=== PATIENT | female | born 1945 | race Caucasian/White ===

== ENCOUNTER 2018-12-18 16:49 | Inpatient (IN) | payer MEDICARE, OTHER, SELFPAY ==
[2018-12-18 16:54] VITALS: BP 147/90; PULSE 87; RESP 21; TEMP 36.8; O2SAT 99; BMI 38.2
--- NOTE | 2018-12-18 17:24 | EKG12_ITS ---
Test Reason : SOB Blood Pressure : / mmHG Vent. Rate : 098 BPM Atrial Rate : 104 BPM P-R Int : 000 ms QRS Dur : 084 ms QT Int : 342 ms P-R-T Axes : 000 010 149 degrees QTc Int : 436 ms Atrial flutter Low voltage QRS Nonspecific ST and T wave abnormality Abnormal ECG Confirmed by TOM CRUZ ([id number]), video editor NIMISHA JOHNSON ([id number]) on 12/23/2018 2:05:00 PM Referred By: Ruben Rogers Confirmed By:ALBERTO CRUZ
[2018-12-18 17:44] VITALS: O2SAT 95
--- NOTE | 2018-12-18 17:50 | RAD_ITS ---
STUDY: X-RAY CHEST REASON FOR EXAM: Female, 73 years old. Shortness of breath. Chest pain TECHNIQUE: PA and lateral views of the chest. COMPARISON: None. FINDINGS: There is hyperinflation of the lungs consistent with chronic obstructive lung disease (COPD). There is blunting of the costophrenic angles. Sternal cerclage wires are present from a prior sternotomy. There is valve replacement. There is cardiac enlargement. Normal mediastinum and cornelio. Normal visualized pulmonary arteries. Normal visualized aortic arch and descending thoracic aorta. There are diffuse degenerative changes of the visualized thoracic spine. Normal visualized ribs, clavicles, and shoulders. There is no demonstrated abnormality of the visualized soft tissue structures of the upper abdomen. RAD/Chest PA and Lateral IMPRESSION: Degenerative changes, as described above. No demonstrated acute cardiopulmonary process. Electronically Signed: Tank Medrano MD at 18:14 EDT , Service support ,
[2018-12-18 17:59] LABS: International Normalized Ratio 1.9; Prothrombin Time (Protime)PT. 21.7 SECONDS (11.7-14.9)
[2018-12-18 18:00] LABS: Partial Thromboplast Time 34.9 Seconds (24.1-36.2)
[2018-12-18 18:10] LABS: ALB/GLOB Ratio 0.8 RATIO (0.9-2.4); AST(SGOT) 30 U/L (15-37); Alanine Aminotransfer ALT/SGPT 24 U/L (13-56); Alkaline Phosphatase 102 U/L (45-117); Anion Gap 8 (5-15); BUN 16 mg/dL (7-18); BUN/Creat Ratio 12.6 RATIO (10-20); Calcium,Total 8.7 mg/dL (8.5-10.1); Chloride 108 mmol/L (98-107); Creatinine, Serum 1.27 mg/dL (0.55-1.02); EST Glomerular Filtration Rate 44 mL/min (>60); Est Glom Filt Rate - Afr Amer 53 mL/min (>60); Estimated Creatinine Clearance 36.56 ml/min; Globulin 3.6 g/dL (2.2-4.2); Glucose 171 mg/dL (74-106); Potassium 3.7 mmol/L (3.5-5.1); Protein, Total 6.6 g/dL (6.4-8.2); Sodium Level 140 mmol/L (136-145)
[2018-12-18 18:17] LABS: Absolute Lymphocyte Count 1.44 X10^3/ul (0.83-4.51); Absolute Neutrophil Count 8.9 X10^3/uL (2.0-7.7); Basophil# 0.05 X10^3/uL; Basophil% 0.4 % (0-1); Eosinophil# 0.09 X10^3/uL; Eosinophils% 0.8 % (0-5); Hematocrit 38.3 % (37-47); Hemoglobin 11.4 g/dl (12.0-15.0); Lymphocyte # 1.44 X10^3/ul (4.0); Lymphocyte % 12.8 % (19-41); Mean Corp Hgb Conc 29.8 g/gl (32-36); Mean Corpuscular Volume 87.2 fL (81-99); Mean Platelet Vol. 11.3 fl (6.2-12.0); Monocyte# 0.73 X10^3/uL; Monocyte% 6.5 % (0-10); Neutrophil # 8.91 X10^3/uL (2.7-7.7); Neutrophil % 79.3 % (47-70); Platelet Count 300 K/mm3 (150-450); RBC Distribution Width CV 19.9 % (11.6-14.6); RBC Distribution Width SD 63.2 fl (35.1-43.9); Red Blood Count 4.39 M/mm3 (4.2-5.4); White Blood Count 11.2 K/mm3 (4.4-11.0)
[2018-12-18 18:20] LABS: POSITIVE COUNT NO; POSITIVE DIFFERENTIAL NO; POSITIVE MORPHOLOGY NO
[2018-12-18 18:45] LABS: BNP,B-Type NATRIURETIC PEPTIDE 87.1 pg/mL (0-100)
[2018-12-18 19:45] VITALS: BP 132/71; PULSE 88; RESP 18; O2SAT 95; O2SAT 97
[2018-12-18 19:49] LABS: Bacteria 0 SEEN /hpf (None Seen); Mucous, Urine 0 SEEN /hpf (<or=2+); Squamous Epithelial Cells - UA 0 SEEN /hpf (5-10); White Blood Cells 0 SEEN /hpf (0-5)
[2018-12-18 19:53] LABS: Color, Urine Yellow (Yellow); Glucose, Dipstick Normal (Normal); Ketone-Dipstick Negative (Negative); Leukocyte Esterase-Dipstick Negative /ul (Negative); Nitrite-Dipstick Negative (Negative); Occult Blood-Urine Negative /ul (Negative); Protein-Dipstick Negative (Negative); Specific Gravity, Urine 1.015 (1.002-1.030); Urine Bilirubin Dipstick Negative (Negative); Urine Clarity Clear (Clear); Urine Urobilinogen Normal (Normal)
[2018-12-18 20:01] LABS: Red Blood Cells-Urine 0-5 SEEN /hpf (0-5)
--- NOTE | 2018-12-18 20:10 | CT_ITS ---
STUDY: CTA CHEST REASON FOR EXAM: Female, 73 years old. Dyspnea. Epigastric pain. Recent travel RADIATION DOSAGE (If Supplied By Facility): CTDIvol = ( 13.78 ) mGy, DLP = ( 563.51 ) mGycm TECHNIQUE: The examination was performed with the intravenous administration of 100ML IV Isovue 370. Post-processing of the angiographic images was performed, with multiplanar reformation and 3D reconstruction. Individualized dose optimization techniques were used for this CT. COMPARISON: Chest x-ray. FINDINGS: Normal enhancement of the main pulmonary artery and right and left pulmonary arteries. Normal enhancement of the bilateral peripheral pulmonary arteries. There is no demonstrated pulmonary embolism. There is atherosclerotic calcification of the aortic arch with tortuosity. There is no demonstrated aortic dissection. Sternal cerclage wires are present from a prior sternotomy. There is mitral valve prosthesis. There are calcifications of the coronary arteries. There are enlarged anterior mediastinal and paratracheal lymph nodes measuring 1.5 cm. Normal hilar regions. Normal visualized trachea and bronchi. The lungs are well expanded. There are moderately increased reticulonodular interstitial upper lung parenchymal markings. There is left lower lung airspace opacity. Nodular component There is 2.0 cm right lower lung nodule, series 2 image 76/265. Normal pleura. Normal chest wall structures. There are degenerative changes of thoracic spine. There are multiple gallstones. There is small hiatal hernia. CT/CTA Chest W/WO Contrast IMPRESSION: CTA chest examination, without a demonstrated pulmonary embolism or arterial dissection. Interstitial edema or infiltrates. Left lower lung airspace opacity. Right lower lung nodule. Consider CT or PET scan for further evaluation. Electronically Signed: Tank Medrano MD at 22:31 EDT , Service support ,
[2018-12-18] MEDS: DiphenhydrAMINE 50 MG/ML Syringe 12.5 MG IV (20:37)
[2018-12-18] MEDS: MethylPREDNISolone 125 MG/2 ML Vial 60 MG IV (20:37)
[2018-12-18] MEDS: Furosemide 40 MG/4 ML Vial IV (20:37)
[2018-12-18 22:44] VITALS: BP 145/91; PULSE 80; RESP 17; O2SAT 97
[2018-12-19] VITALS (15 sets, daily range): BP systolic 97–163; BP diastolic 45–111; PULSE 66–105; RESP 17–21; TEMP 36.4–36.7; O2SAT 90–98; BMI 36.5
--- NOTE | 2018-12-19 00:17 | ED.VISSUMM ---
- ER Visit Summary Date of Service: 12/19/18 Chief Complaint: Shortness of breath History of Present Illness: The patient is a 73 F who is originally from [place]. She has a history of diabetes hypertension high cholesterol COPD and atrial fibrillation. She is a coronary artery stents as well as a [employer] prosthetic aortic valve replacement. She wears 2 L of home oxygen but as needed and at night. She is also on Coumadin. Her last Sunday. Family from this area drove down visitation was Sunday and when they saw her they knew that she was not to be able to continue to live by herself and discussed her moving to [place]. Her trailer sold within 1 day and she buried her yesterday and drove to [place] today. She notes that her legs are more swollen than normal. She initially tells me that she has had worsening shortness of breath and dyspnea on exertion but then later tells me that this is not any different from her normal self. She tells me the last week her INR was 6 and they adjusted her meds. Family gets her home here and realized that she is not to be able to climb the stairs to get to the room at the house that she is staying in. She has 1 tank of oxygen that she brought with her. Otherwise she has no home O2. She has no local doctor. Physical Examination: Afebrile vital signs are stable Gen: Well-nourished well-developed Head: Normocephalic atraumatic Eyes: Perrl EOMI ENT: TMs clear no rhinorrhea moist mucous membranes Neck: Supple no lymphadenopathy no JVD nontender CVS: Irregularly irregular rhythm rate controlled no murmurs normal S1-S2 Respiratory: No distress clear to auscultation bilaterally chest nontender Abdomen: Soft nontender nondistended normal bowel sounds no masses Back: Nontender Extremity: Nontender 1+ lower extremity edema Skin: Normal color no rash Neuro: alert orientated ?3 CN II-XII intact normal strength sensation reflexes gait cerebellar Psych: Normal affect normal mood Test Results: Chest x-ray no acute disease. CT [place] of the chest after pretreatment was negative for PE or dissection. EKG showed atrial fibrillation rate of 98 CBC and chemistries with a creatinine 1.27. INR subtherapeutic at 1.9. Liver enzymes negative. Urinalysis negative. Beta nature peptide is 7.1. Troponin 0 0.03. Emergency Department Course and Treatment: Attempted to ablate the patient to the bathroom and she was 83% on room air. Unclear what she is normally at her baseline. She wears oxygen at home when she needs to but does not typically ambulate very far. Patient needs oxygen she has one tank and that is it. She most likely cannot stay at the house they were planning on having her stay at and will more than likely need some degree of placement. Patient received some Lasix here in the department. Impression: 1. Atrial fibrillation 2. Lymphedema 3. Depression 4. Subtherapeutic INR 5. Hypoxemia This note was generated with [employer] dictation software. It may contain incorrect words, spelling, and punctuation that were not noted in review of the chart prior to signing ED Disposition - Plan for ED Patient: Referrals: Care Physician,No Primary [Primary Care Provider] -
--- NOTE | 2018-12-19 01:54 | PCM.HP.STD ---
Problem List (1) Adult failure to thrive Status: Acute (2) Congestive heart disease Status: Suspected (3) COPD (chronic obstructive pulmonary disease) Status: Chronic (4) Acute on chronic respiratory failure with hypoxemia Status: Chronic History of Present Illness Date of Admission: 12/18/18 Chief Complaint: shortness of breath Patient was seen before midnight of 12/19/2018 at about 2345 on 12/18/2018. The patient is a 73 year old F with a significant history of atrial fibrillation; former smoker; CAD status post coronary stents; open heart surgery with mechanical valve replacements; atrial fibrillation; COPD; hypertension; and diabetes who presented to the emergency department primarily because she is unable to take herself; and her family realize that it will be overwhelming to accommodate her after bringing her from [place] with not much thought put in her moving from out of state. [facility] However her a week ago and was buried on 12/17/2018. Her family who live in the [place] neighborhood brought her to the [facility] without adequate preparation of her healthcare needs and realized that they will be unable to take care of her. She reported that she cannot walk far and she has low energy. Further she is weak. Her family report that she was so weak to hold onto support. After her she sold her trailer and everything in it with the intent to come and live with her family. While in trail at [place] she had limited mobility and she was unable to do her instrumental activities of daily living like cleaning and doing the dishes. Her feet was propped up because her feet when swollen. Her feet has been swollen for 5 days. Also she complains of a progressively worsening difficulty in breathing. She has had difficulty in breathing for several years but she thinks that her difficulty breathing has worsened in the last months. She tried to get an appointment with her PCP while in [place]. However she was scheduled to see her PCP on Sunday12/20/2018. She moved to the [place] area on 12/18/2018 The plan was for her to come and live with her daughter. However her daughter realized that , patient will not be able to climb onto the stairs onto her new bedroom unlike in patient's previous trailer where patient could walk straight in. Patient is on 2 L of nasal cannula mostly [id number] except for a few hours that she take the oxygen off. She came to the [place] area with oxygen tank that she has to return to providers at [place]. At the emergency department while being ambulated her oxygen saturation was noted to be 83%. She takes Coumadin for A. fib and for a history of mechanical valve replacements. She thinks that it was the aortic valve that we was replaced but she is unsure. Because her INR was elevated around 6 recently had her Coumadin was held. She reports that the day before presentation she took a 2 mg of her Coumadin. She reportedly had a coronary stent in the year 1999 and heart valve replacements in 2003. A chest x-ray at emergency department showed hyperinflation consistent with COPD; and valvular replacements. CTPA showed interstitial edema or infiltrates; left lower lung airspace opacity; and right lower lung nodule. At the emergency department patient was given Lasix 40 mg IV x1; and Solu-Medrol 60 mg x 1. Past Medical History Past Medical History (Chronic Problems): Chronic Problems COPD (chronic obstructive pulmonary disease) (Chronic) Acute on chronic respiratory failure with hypoxemia (Chronic) Allergies levofloxacin [From Levaquin] Allergy (Verified 12/18/18 17:06) Hives morphine Allergy (Verified 12/18/18 17:06) Shortness of breath Iodinated Contrast- Oral and IV Dye [CONTRASTS] Adverse Reaction (Verified 12/18/18 17:06) Swelling Home Medications: Ambulatory Orders Medication Instructions Recorded Atorvastatin Calcium [Lipitor] 80 mg PO QHS 12/18/18 Cholecalciferol (VIT D3) [Vitamin 1,000 unit PO DAILY 12/18/18 D] Digoxin [Digox] 125 mcg PO DAILY 12/18/18 Fluticasone/Vilanterol [Breo 1 each IH DAILY 12/18/18 Ellipta Inhaler] Furosemide [Lasix] 40 mg PO DAILY 12/18/18 Glimepiride [Amaryl] 1 mg PO BID 12/18/18 Metformin HCl [Glucophage] 1,000 mg PO BIDCM 12/18/18 Metoprolol Tartrate [Lopressor 50 mg PO DAILY 12/18/18 (Beta Elysia)] Montelukast [Singulair] 10 mg PO DAILY 12/18/18 Warfarin [Coumadin ([facility])] 1 mg PO MOWETH 12/18/18 Warfarin [Coumadin ([facility])] 2 mg PO TU 12/18/18 Insulin Human 75/25 [Humalog Mix 10 unit SQ DINNER 12/19/18 75-25 Kwikpen] Insulin Human 75/25 [Humalog Mix 12 unit SQ BIDAC 12/19/18 75-25 Kwikpen] Surgical History: - - Coronary stents; valvular replacements. Lives: - - Was living with in [place]. just . Moved to live with her daughter but because of patient condition daughter can not take care of her. At this point looking for placement. Smoking Status: Former smoker Alcohol: None - *Family History Maternal History Items: Heart Disease Paternal History Items: Heart Disease Review of Systems Constitutional: Reports: Anorexia, Weakness, Fatigue. Denies: Chills, Fever, Weight Change HEENT: Denies: Head Aches, Sinus Congestion, Sinus Drainage Cardiovascular: Reports: Edema - Bilateral lower extremities. Denies: Chest Pain, Palpitations Respiratory: Reports: Shortness of Breath. Denies: Cough, Sputum production Gastrointestinal: Denies: Abdominal Pain, Nausea, Vomiting Genitourinary: Denies: Dysuria Musculoskeletal: Denies: Joint Pain, Joint Tenderness Skin: Denies: Rash, Wounds Neurological: Denies: Numbness, Tingling, Focal weakness Psychiatric: Denies: Anxiety, Depression, Homicidal Ideations, Suicidal Ideations Hematologic/ Lymphatic: Denies: Easy Bruising, Easy Bleeding VTE Information - Inpt Only VTE Present on Admission: No VTE Mechan Device Prophylaxis: None VTE Pharm Prophylaxis ordered?: No Reason prophylaxis not ordered:: Treatment Not Indicated - On therapeutic anticoagulation for valvular replacements and A. fib Patient Problems: Active and Suspected Problems Adult failure to thrive (Acute) Congestive heart disease (Suspected) Acute hypoxemic respiratory failure (Acute) - Physical Exam General: Alert, Oriented x3, Cooperative HEENT: Atraumatic, PERRLA, EOMI, Normocephalic Neck: Supple, No JVD, Negative Carotid Bruits Lungs: Clear to auscultation, Normal air movement Cardiovascular: No murmurs, Irregular Rate, - - Mechanical click Abdomen: Bowel Sounds Present, Soft, Non Tender Extremities: Capillary Refill Less than 3 Seconds, Edema - Mild bilateral lower extremities feet to distal legs Skin: No rashes, No breakdown Musculoskeletal: No Tenderness to Palpation of Joints or Extremities Neurological: Cranial nerves II-XII grossly intact Psych/Mental Status: Normal Affect, Appropriate Vital Signs Temp Pulse Resp BP Pulse Ox 98.2 F 104 H 21 H 163/111 H 96 12/18/18 16:54 12/19/18 00:30 12/19/18 00:30 12/19/18 00:30 12/19/18 00:30 Oxygen Flow Rate (L/min) 3 Oxygen Delivery Method Nasal Cannula Weight: 104.3 kg Body Mass Index (BMI) 38.2 Laboratory Tests Past 24 Hrs 12/18/18 12/18/18 12/18/18 17:45 17:45 17:45 WBC 11.2 H RBC 4.39 Hgb 11.4 L Hct 38.3 MCV 87.2 MCH 26.0 L MCHC 29.8 L RDW 19.9 H RDW Differential 63.2 H Plt Count 300 MPV 11.3 Immature Gran % (Auto) 0.200 Neut % (Auto) 79.3 H Lymph % (Auto) 12.8 L Highland % (Auto) 6.5 Eos % (Auto) 0.8 Baso % (Auto) 0.4 Absolute Neuts (auto) 8.9 H Absolute Lymphs (auto) 1.44 Total Counted Not Reportable PT 21.7 H INR 1.9 APTT 34.9 Sodium 140 Potassium 3.7 Chloride 108 H Carbon Dioxide 24.0 Anion Gap 8 BUN 16 Creatinine 1.27 H Estim Creat Clear Calc 36.56 Est GFR (MDRD) Af Amer 53 L Est GFR (MDRD) Non-Af 44 L BUN/Creatinine Ratio 12.6 Glucose 171 H Calcium 8.7 Total Bilirubin 0.80 AST 30 ALT 24 Alkaline Phosphatase 102 Troponin I 0.030 B-Natriuretic Peptide Total Protein 6.6 Albumin 3.0 L Globulin 3.6 Albumin/Globulin Ratio 0.8 L TSH Urine Color Urine Clarity Urine pH Ur Specific Navarro Urine Protein Urine Glucose (UA) Urine Ketones Urine Occult Blood Urine Nitrite Urine Bilirubin Urine Urobilinogen Ur Leukocyte Esterase Urine RBC Urine WBC Ur Squamous Epith Cells Urine Bacteria Urine Mucus Digoxin 12/18/18 12/18/18 12/18/18 17:45 19:30 23:40 WBC RBC Hgb Hct MCV MCH MCHC RDW RDW Differential Plt Count MPV Immature Gran % (Auto) Neut % (Auto) Lymph % (Auto) Highland % (Auto) Eos % (Auto) Baso % (Auto) Absolute Neuts (auto) Absolute Lymphs (auto) Total Counted PT INR APTT Sodium Potassium Chloride Carbon Dioxide Anion Gap BUN Creatinine Estim Creat Clear Calc Est GFR (MDRD) Af Amer Est GFR (MDRD) Non-Af BUN/Creatinine Ratio Glucose Calcium Total Bilirubin AST ALT Alkaline Phosphatase Troponin I B-Natriuretic Peptide 87.1 Total Protein Albumin Globulin Albumin/Globulin Ratio TSH Urine Color Yellow Urine Clarity Clear Urine pH 5.0 Ur Specific Navarro 1.015 Urine Protein Negative Urine Glucose (UA) Normal Urine Ketones Negative Urine Occult Blood Negative Urine Nitrite Negative Urine Bilirubin Negative Urine Urobilinogen Normal Ur Leukocyte Esterase Negative Urine RBC 0-5 SEEN Urine WBC 0 SEEN Ur Squamous Epith Cells 0 SEEN Urine Bacteria 0 SEEN Urine Mucus 0 SEEN Digoxin 0.60 L 12/18/18 23:40 WBC RBC Hgb Hct MCV MCH MCHC RDW RDW Differential Plt Count MPV Immature Gran % (Auto) Neut % (Auto) Lymph % (Auto) Highland % (Auto) Eos % (Auto) Baso % (Auto) Absolute Neuts (auto) Absolute Lymphs (auto) Total Counted PT INR APTT Sodium Potassium Chloride Carbon Dioxide Anion Gap BUN Creatinine Estim Creat Clear Calc Est GFR (MDRD) Af Amer Est GFR (MDRD) Non-Af BUN/Creatinine Ratio Glucose Calcium Total Bilirubin AST ALT Alkaline Phosphatase Troponin I B-Natriuretic Peptide Total Protein Albumin Globulin Albumin/Globulin Ratio TSH Pending Urine Color Urine Clarity Urine pH Ur Specific Navarro Urine Protein Urine Glucose (UA) Urine Ketones Urine Occult Blood Urine Nitrite Urine Bilirubin Urine Urobilinogen Ur Leukocyte Esterase Urine RBC Urine WBC Ur Squamous Epith Cells Urine Bacteria Urine Mucus Digoxin Assessment/Plan All Active Problems Adult failure to thrive (Acute) Acute hypoxemic respiratory failure (Acute) Patient was seen before midnight of 12/19/2018 at about 2345 on 12/18/2018 The patient is a 73 year old F with a significant history of atrial fibrillation; former smoker; CAD status post coronary stents; open heart surgery with mechanical valve replacements; atrial fibrillation; COPD; hypertension; and diabetes who presented to the emergency department primarily because she is unable to take herself; and has fatigue; weakness; progressive worsening shortness of breath; and bilateral leg edema and with radiographic findings of interstitial pulmonary infiltrates and left lung airspace opacity as well as right lower lung nodule. Probable acute on chronic hypoxemic respiratory failure. Orders placed to obtain records from [facility] at [place] Oxygen supplementation to maintain oxygen saturation above 92%. Patient reports allergy to a powder inhalers and she reported the previous PCP stopped all nebulization as well. Received Lasix at the emergency department. We will continue Lasix. Supplement potassium. Received Solu-Medrol emergency department. Wheezing was not heard. Will not continue steroid at this time. We will get an echocardiogram. Fluid restriction. Daily weights. Cardiac diet ordered. Her bilateral lower extremity edema is not impressive at this time. Her family reported that her bilateral lower extremity edema has gone down. Trend BMP. Heart valve replacements. INR was 1.9. We will get an echocardiogram. Hopefully that should indicate which valves were replaced. We will give therapeutic dose Lovenox twice daily for now and escalate Coumadin to 4 mg x 1. INR ordered for 12/20/2018. Please follow INR and adjust anticoagulation regimen as necessary. Atrial fibrillation Patient was not controlled A. fib at a time of evaluation. Anticoagulation as above Digoxin continued. Digoxin level is low at this point. Will continue same dose of digoxin for now. Consider escalating Digoxin if patient in rapid ventricular response. Right lung nodule with anterior mediastinal and paratracheal lymph nodes Patient has a history of smoking. She reports that she quit smoking about 3 to 4 years ago. Consider discussing biopsy options with patient. Of note patient is on therapeutic anticoagulation at this time. Diabetes mellitus On presentation and blood glucose on BMP was 171 which is within hospital goal On home prandial NPH insulin. We will continue prandial insulin but at a reduced dose. Continue home Amaryl. Hold metformin since it is too early in her admission. Adult failure to thrive. Patient unable to take care of self. Case management consult to consider penitentiary placement. DVT prophylaxis Not indicated. Coumadin dose for A. fib and mechanical heart valve replacement escalated. Bridge with Lovenox. Code Visit OBSV E&M: 36070 Initial observation care L3
[2018-12-19 02:16] LABS: Thyroid Stim Hormone (TSH) 2.58 uIU/mL (0.358-3.74)
[2018-12-19] MEDS: Enoxaparin 120 MG/0.8 ML Syringe 105 MG SC ×3 (02:57→21:58)
[2018-12-19 05:22] LABS: International Normalized Ratio 1.7; Prothrombin Time (Protime)PT. 20.1 SECONDS (11.7-14.9)
[2018-12-19 05:26] LABS: ALB/GLOB Ratio 0.8 RATIO (0.9-2.4); AST(SGOT) 31 U/L (15-37); Alanine Aminotransfer ALT/SGPT 26 U/L (13-56); Albumin, Serum 3.1 g/dL (3.2-5.0); Alkaline Phosphatase 102 U/L (45-117); Anion Gap 10 (5-15); BUN 16 mg/dL (7-18); BUN/Creat Ratio 13.9 RATIO (10-20); Calcium,Total 8.8 mg/dL (8.5-10.1); Chloride 105 mmol/L (98-107); Creatinine, Serum 1.15 mg/dL (0.55-1.02); EST Glomerular Filtration Rate 49 mL/min (>60); Est Glom Filt Rate - Afr Amer 60 mL/min (>60); Estimated Creatinine Clearance 40.38 ml/min; Globulin 3.7 g/dL (2.2-4.2); Glucose 240 mg/dL (74-106); Potassium 3.9 mmol/L (3.5-5.1); Protein, Total 6.8 g/dL (6.4-8.2); Sodium Level 141 mmol/L (136-145)
[2018-12-19 06:55] LABS: Bedside Glucose 213 mg/dL (70-110)
[2018-12-19] MEDS: Glimepiride 1 MG Tablet PO (08:51)
[2018-12-19] MEDS: Insulin Human 75/25 Kwickpen 8 UNIT SC ×2 (08:54→17:21)
--- NOTE | 2018-12-19 10:24 | CASEMGMT ---
JASON met with patient, Introduced self and role at [facility]. She told SW that she just came to [place] from [place] yesterday around 4p and came right to the ER. She said she buried her on Sunday. They sold her trailer and she has no where to go. She said she cannot stay with her daughter as there is no bedroom on the first floor. She cannot stay with her sister as she does not have any room. She said SW needs to talk with her daughter and she is on her way in to the hospital. Patient's daughter and sister then entered the room. JASON introduced self and role at [facility]. JASON explained that patient is Medicare observation status so a custodial would not be paid for at discharge. Patient does not have enough money to pay for a custodial stay. Her income is around $1405 per month. She sold her trailer for $3,000. They plan on using that money to pre-pay for patient's expenses. JASON explained we will have to complete a Medicaid application and she could possibly go to a custodial on pending Medicaid. JASON also said SW will make a referral to [facility] to see if they can assess her for Passport and maybe get her into assisted living or low income housing. The daughter was very appreciative. JASON filled out part of the Medicaid application. JASON then spoke with patient's daughter and told her what blanks still needed to be filled in. JASON told her the sooner she gets it to the sooner we can find a place. Patient's daughter said [facility] okay. JASON told her SW will talk with those facilities. JASON called Jo Ann at [facility] and told her about situation. She said patient's daughter called and talked with her already. JASON faxed information to [facility]. Jennifer BOYKIN MSW
[2018-12-19] MEDS: Metoprolol Tartrate 50 MG Tablet PO (11:06)
[2018-12-19] MEDS: Digoxin 125 MCG Tablet PO (11:06)
[2018-12-19] MEDS: Montelukast 10 MG Tablet PO (11:07)
[2018-12-19] MEDS: Furosemide 40 MG/4 ML Vial IV (11:08)
[2018-12-19] MEDS: 0.9% NaCl Peripheral Flush Adult/Peds IV (11:08)
[2018-12-19 11:36] LABS: Bedside Glucose 379 mg/dL (70-110)
--- NOTE | 2018-12-19 14:52 | PCM.HOSP.N ---
Hospitalist Note Patient was seen and examined today, I have elected to keep her on IV Lasix because I think she may have a component of right-sided congestive heart failure, echocardiogram today showed a normal EF but evidence of severe pulmonary hypertension. I talked to the patient and her daughters about adjusting some of her other medications and I have made those adjustments today. I have changed her status to a full admit and the plan is to have her go to a skilled facility for further care at the time of discharge from the hospital. Patient was given extra warfarin today due to the fact that she has mechanical mitral valve.
[2018-12-19] MEDS: Ipratropium/Albuterol Sulfate 3 ML AMPUL.NEB INHALATION ×2 (14:55→19:18)
--- NOTE | 2018-12-19 16:11 | CHAPLAIN ---
Type of Pastoral Visit _x__ Initial Visit ___ Follow-up Visit ___ On-call Visit ___ General Patient Visit ___ Spiritual Assessment ___ Family Conference ___ Bereavement ___ Rapid Response ___ Code Blue ___ Other (describe below) Pastoral Care Referral From _x__ Patient ___ Family ___ Nurse ___ Physician ___ Paint Stockman ___ Salt Refiner ___ Other (describe below) Sacrament/Intervention _x__ Active listening ___ Anointing ___ Sikh _x__ Bereavement ___ Communion ___ Grace exploration ___ _x__ Life review _x__ Prayer ___ Reconciliation ___ Sacrament of Sick _x__ Supportive presence ___ Wedding ___ Other (describe below) Pastoral Comments patient has moved and buried her all within the last week; family members are with her in room; pt talks at length with this tub mender
[2018-12-19 17:00] LABS: Bedside Glucose 391 mg/dL (70-110)
[2018-12-19] MEDS: Furosemide 20 MG/2 ML VIAL IV (17:27)
[2018-12-19 18:17] LABS: International Normalized Ratio 1.9; Prothrombin Time (Protime)PT. 21.6 SECONDS (11.7-14.9)
[2018-12-19] MEDS: Insulin Human 75/25 Kwickpen 6 UNIT SC (21:55)
[2018-12-19] MEDS: Atorvastatin Calcium 80 MG Tablet PO (22:00)
[2018-12-19 22:46] LABS: Bedside Glucose 360 mg/dL (70-110)
[2018-12-19] MEDS: MELATONIN 3 MG TABLET PO (22:46)
[2018-12-20] VITALS (16 sets, daily range): BP systolic 95–115; BP diastolic 41–60; PULSE 61–132; RESP 16–18; TEMP 36.4–36.9; O2SAT 88–97
[2018-12-20 06:45] LABS: International Normalized Ratio 2.4; Prothrombin Time (Protime)PT. 26.3 SECONDS (11.7-14.9)
[2018-12-20 06:46] LABS: Bedside Glucose 151 mg/dL (70-110)
[2018-12-20] MEDS: Ipratropium/Albuterol Sulfate 3 ML AMPUL.NEB INHALATION ×3 (06:57→21:07)
[2018-12-20] MEDS: Insulin Human 75/25 Kwickpen 8 UNIT SC (08:15)
[2018-12-20] MEDS: Digoxin 125 MCG Tablet PO (09:39)
[2018-12-20] MEDS: Furosemide 20 MG/2 ML VIAL IV (09:40)
[2018-12-20] MEDS: Montelukast 10 MG Tablet PO (09:40)
[2018-12-20] MEDS: Metoprolol Tartrate 50 MG Tablet PO (09:40)
[2018-12-20] MEDS: Enoxaparin 120 MG/0.8 ML Syringe 105 MG SC (09:41)
[2018-12-20 11:21] LABS: Bedside Glucose 307 mg/dL (70-110)
--- NOTE | 2018-12-20 16:05 | PCM.PROGNOTE ---
Patient Problems: Active and Suspected Problems Adult failure to thrive (Acute) Congestive heart disease (Suspected) Subjective: Patient was seen and examined today, she states she feels better today less short of breath. Patient's oxygen is on 2 L via nasal cannula. Patient's echocardiogram yesterday showed severe pulmonary hypertension with preserved EF. - Physical Exam General: Alert, Oriented x3, Cooperative, No apparent distress, Well developed, Well nourished HEENT: Atraumatic, PERRLA, EOMI, Normocephalic Oral: Moist Mucosa Neck: Supple, No JVD, Negative Carotid Bruits, Trachea Midline, Thyroid Normal Size and Texture Lungs: Clear to auscultation, Normal air movement, No rhonchi, No wheeze, No rales Cardiovascular: Regular rate, Regular Rhythm, Normal S1, Normal S2, No murmurs, No Ectopic Activity, PMI Normal, No rub noted, No Gallop Abdomen: Bowel Sounds Present, Soft, Non Tender, Non-Distended Extremities: No clubbing, No cyanosis, No edema, Capillary Refill Less than 3 Seconds Skin: No rashes, No breakdown Musculoskeletal: No Tenderness to Palpation of Joints or Extremities Neurological: Cranial nerves II-XII grossly intact, Neuro grossly intact, Sensory exam intact to light touch and pain Psych/Mental Status: Normal Affect, Appropriate, Alert and oriented to time, place, person, mood and affect Vital Signs Temp Pulse Resp BP Pulse Ox 97.8 F 65 18 95/49 L 96 12/20/18 15:18 12/20/18 15:18 12/20/18 15:18 12/20/18 15:18 12/20/18 15:18 Oxygen Flow Rate (L/min) 2 Oxygen Delivery Method Nasal Cannula Weight: 100 kg Body Mass Index (BMI) 36.5 Intake and Output for Last 24 Hours 12/18/18 12/19/18 12/20/18 23:59 23:59 23:59 Intake Total 820 / 820 60 / 60 Output Total 400 / 400 200 / 200 Balance 420 / 420 -140 / -140 Laboratory Tests Past 24 Hrs 12/19/18 12/20/18 17:45 06:15 PT 21.6 H 26.3 H INR 1.9 2.4 POC Glucose 12/20/18 12/20/18 12/19/18 11:01 06:37 21:52 POC Glucose 307 H 151 H 360 H 12/19/18 16:38 POC Glucose 391 H Medical Necessity - Tobacco Use Smoking Status: Former smoker Tobacco Use: Cigarettes Assessment/Plan All Active Problems Adult failure to thrive (Acute) Acute hypoxemic respiratory failure (Ruled-out) Acute on chronic respiratory failure with hypoxemia (Ruled-out) #1 diastolic congestive heart failure-continue IV Lasix, monitor blood pressure, systolic blood pressure has been low at times #2 severe pulmonary hypertension #3 chronic hypoxic respiratory failure secondary to chronic obstructive pulmonary disease #4 chronic obstructive pulmonary disease #5 type 2 diabetes-continue to monitor blood sugars, patient's insulin will be readjusted. Blood sugars are not under control. Patient will need placed on an ARB due to type 2 diabetes. Patient's blood pressure will need to be monitored carefully #6 osteoarthritis #7 generalized debility secondary to multiple medical factors including chronic hypoxic respiratory failure, chronic obstructive pulmonary disease, diastolic congestive heart failure, osteoarthritis, and type 2 diabetes. Continue PT and OT, patient will need nursing home facility placement at the time of discharge #8 mitral valve disease with mechanical mitral valve-patient's INR was therapeutic today, I will discontinue her Lovenox and place her on warfarin #9 coagulopathy secondary to chronic warfarin usage-continue to monitor INR #10 stage III chronic kidney disease-secondary to type 2 diabetes #11 hyperlipidemia Code Visit Inpatient E&M: 24401 Subs Hosp L2
[2018-12-20 17:21] LABS: Bedside Glucose 372 mg/dL (70-110)
[2018-12-20] MEDS: Atorvastatin Calcium 80 MG Tablet PO (21:34)
[2018-12-20] MEDS: MELATONIN 3 MG TABLET PO (21:37)
[2018-12-20 22:31] LABS: Bedside Glucose 379 mg/dL (70-110)
[2018-12-21] VITALS (15 sets, daily range): BP systolic 99–138; BP diastolic 50–78; PULSE 63–89; RESP 16–20; TEMP 36.6–37.1; O2SAT 94–99
[2018-12-21] MEDS: guaiFENesin 10 ML UDC (200MG/10ML) PO (02:18)
[2018-12-21] MEDS: Ipratropium/Albuterol Sulfate 3 ML AMPUL.NEB INHALATION ×2 (07:11→19:53)
[2018-12-21 07:13] LABS: International Normalized Ratio 2.9; Prothrombin Time (Protime)PT. 30.1 SECONDS (11.7-14.9)
[2018-12-21 07:25] LABS: Anion Gap 7 (5-15); BUN 26 mg/dL (7-18); Calcium,Total 8.6 mg/dL (8.5-10.1); Chloride 109 mmol/L (98-107); EST Glomerular Filtration Rate 43 mL/min (>60); Est Glom Filt Rate - Afr Amer 52 mL/min (>60); Estimated Creatinine Clearance 35.72 ml/min; Glucose 208 mg/dL (74-106); Magnesium 1.6 mg/dL (1.6-2.6); Potassium 4.6 mmol/L (3.5-5.1); Sodium Level 142 mmol/L (136-145)
[2018-12-21 07:28] LABS: Absolute Lymphocyte Count 2.43 X10^3/ul (0.83-4.51); Absolute Neutrophil Count 9.8 X10^3/uL (2.0-7.7); Basophil# 0.06 X10^3/uL; Basophil% 0.5 % (0-1); Eosinophil# 0.18 X10^3/uL; Eosinophils% 1.4 % (0-5); Hemoglobin 11.2 g/dl (12.0-15.0); Lymphocyte # 2.43 X10^3/ul (4.0); Lymphocyte % 18.3 % (19-41); Mean Corp Hgb Conc 29.5 g/gl (32-36); Mean Corpuscular Hgb 26.2 pg (27.0-32.0); Mean Corpuscular Volume 88.8 fL (81-99); Mean Platelet Vol. 10.9 fl (6.2-12.0); Neutrophil # 9.75 X10^3/uL (2.7-7.7); Neutrophil % 73.6 % (47-70); Platelet Count 247 K/mm3 (150-450); RBC Distribution Width SD 64.8 fl (35.1-43.9); Red Blood Count 4.28 M/mm3 (4.2-5.4); White Blood Count 13.3 K/mm3 (4.4-11.0)
[2018-12-21 07:29] LABS: POSITIVE COUNT NO; POSITIVE DIFFERENTIAL NO; POSITIVE MORPHOLOGY NO
[2018-12-21] MEDS: Insulin Lispro 100 UNIT/ML INSULN.PEN 15 UNIT SC ×3 (08:49→17:15)
[2018-12-21 09:42] LABS: Bedside Glucose 202 mg/dL (70-110)
[2018-12-21] MEDS: Losartan Potassium 25 MG Tablet 12.5 MG PO (10:21)
[2018-12-21] MEDS: Montelukast 10 MG Tablet PO (10:22)
[2018-12-21] MEDS: Digoxin 125 MCG Tablet PO (10:22)
[2018-12-21] MEDS: Metoprolol Tartrate 50 MG Tablet PO (10:22)
[2018-12-21] MEDS: Furosemide 20 MG/2 ML VIAL IV (10:22)
[2018-12-21] MEDS: 0.9% NaCl Peripheral Flush Adult/Peds IV (10:23)
[2018-12-21 11:16] LABS: Bedside Glucose 269 mg/dL (70-110)
[2018-12-21 17:25] LABS: Bedside Glucose 136 mg/dL (70-110)
--- NOTE | 2018-12-21 17:54 | PCM.PROGNOTE ---
Patient Problems: Active and Suspected Problems Adult failure to thrive (Acute) Congestive heart disease (Suspected) Subjective: Patient was seen and examined today, she was examined by nursing in the perineal area to see if they could locate any areas of bleeding, they did not see any abnormality. Patient's INR was 2.9 today. Patient's blood sugars are under better control since her insulin was changed - Physical Exam General: Alert, Oriented x3, Cooperative, No apparent distress HEENT: Atraumatic, PERRLA, EOMI, Normocephalic Oral: Moist Mucosa Neck: Supple, No Nuchal Rigidity, Trachea Midline, Thyroid Normal Size and Texture Lungs: Clear to auscultation, Normal air movement, No rhonchi, No wheeze, No rales Cardiovascular: Regular rate, Regular Rhythm, Normal S1, Normal S2, No murmurs, No Ectopic Activity Abdomen: Bowel Sounds Present, Soft, Non Tender, Non-Distended Extremities: No clubbing, No cyanosis, No edema, Capillary Refill Less than 3 Seconds Skin: No rashes, No breakdown Musculoskeletal: No Tenderness to Palpation of Joints or Extremities Neurological: Cranial nerves II-XII grossly intact, Neuro grossly intact, Sensory exam intact to light touch and pain, Coordination normal Psych/Mental Status: Normal Affect, Appropriate, Alert and oriented to time, place, person, mood and affect Vital Signs Temp Pulse Resp BP Pulse Ox 98.8 F 64 16 99/53 L 97 12/21/18 14:22 12/21/18 15:03 12/21/18 14:22 12/21/18 14:22 12/21/18 14:22 Oxygen Flow Rate (L/min) 2 Oxygen Delivery Method Nasal Cannula Weight: 100.4 kg Body Mass Index (BMI) 36.5 Intake and Output for Last 24 Hours 12/19/18 12/20/18 12/21/18 23:59 23:59 23:59 Intake Total 820 / 820 60 / 60 120 / 120 Output Total 400 / 400 200 / 200 Balance 420 / 420 -140 / -140 120 / 120 Laboratory Tests Past 24 Hrs 12/21/18 12/21/18 12/21/18 06:45 06:45 06:45 WBC 13.3 H RBC 4.28 Hgb 11.2 L Hct 38.0 MCV 88.8 MCH 26.2 L MCHC 29.5 L RDW 20.0 H RDW Differential 64.8 H Plt Count 247 MPV 10.9 Immature Gran % (Auto) 0.200 Neut % (Auto) 73.6 H Lymph % (Auto) 18.3 L [place] % (Auto) 6.0 Eos % (Auto) 1.4 Baso % (Auto) 0.5 Absolute Neuts (auto) 9.8 H Absolute Lymphs (auto) 2.43 Total Counted Not Reportable PT 30.1 H INR 2.9 Sodium 142 Potassium 4.6 Chloride 109 H Carbon Dioxide 26.0 Anion Gap 7 BUN 26 H Creatinine 1.30 H Estim Creat Clear Calc 35.72 Est GFR (MDRD) Af Amer 52 L Est GFR (MDRD) Non-Af 43 L BUN/Creatinine Ratio 20.0 Glucose 208 H Calcium 8.6 Magnesium 1.6 POC Glucose 12/21/18 12/21/18 12/21/18 17:12 11:10 06:44 POC Glucose 136 H 269 H 202 H 12/20/18 21:29 POC Glucose 379 H Medical Necessity - Tobacco Use Smoking Status: Former smoker Tobacco Use: Cigarettes Assessment/Plan All Active Problems Adult failure to thrive (Acute) Acute hypoxemic respiratory failure (Ruled-out) Acute on chronic respiratory failure with hypoxemia (Ruled-out) #1 diastolic congestive heart failure-I have changed the patient's IV Lasix to oral Lasix #2 severe pulmonary hypertension #3 chronic hypoxic respiratory failure secondary to chronic obstructive pulmonary disease #4 chronic obstructive pulmonary disease #5 type 2 diabetes-continue to monitor blood sugars #6 osteoarthritis #7 generalized debility secondary to multiple medical factors including chronic hypoxic respiratory failure, chronic obstructive pulmonary disease, diastolic congestive heart failure, osteoarthritis, and type 2 diabetes. Continue PT and OT, patient will need longterm facility placement at the time of discharge #8 mitral valve disease with mechanical mitral valve-patient's INR was therapeutic today #9 coagulopathy secondary to chronic warfarin usage-continue to monitor INR #10 stage III chronic kidney disease-secondary to type 2 diabetes #11 hyperlipidemia Code Visit Inpatient E&M: 99788 Subs Hosp L2
[2018-12-21] MEDS: Atorvastatin Calcium 80 MG Tablet PO (21:19)
[2018-12-21 22:41] LABS: Bedside Glucose 120 mg/dL (70-110)
[2018-12-21] MEDS: Acetaminophen 325 MG Tablet 650 MG PO (23:51)
[2018-12-21] MEDS: MELATONIN 3 MG TABLET PO (23:51)
[2018-12-22] VITALS (9 sets, daily range): BP systolic 124–144; BP diastolic 58–70; PULSE 63–68; RESP 16–18; TEMP 36.6–37; O2SAT 82–99
[2018-12-22] MEDS: Ipratropium/Albuterol Sulfate 3 ML AMPUL.NEB INHALATION (06:46)
[2018-12-22 07:01] LABS: Bedside Glucose 155 mg/dL (70-110)
[2018-12-22 07:09] LABS: International Normalized Ratio 2.4; Prothrombin Time (Protime)PT. 26.5 SECONDS (11.7-14.9)
[2018-12-22] MEDS: Insulin Lispro 100 UNIT/ML INSULN.PEN 15 UNIT SC ×2 (08:25→12:39)
[2018-12-22] MEDS: Losartan Potassium 25 MG Tablet 12.5 MG PO (09:17)
[2018-12-22] MEDS: Metoprolol Tartrate 50 MG Tablet PO (09:17)
[2018-12-22] MEDS: Furosemide 40 MG Tablet PO (09:18)
[2018-12-22] MEDS: Montelukast 10 MG Tablet PO (09:18)
[2018-12-22] MEDS: Digoxin 125 MCG Tablet PO (09:18)
--- NOTE | 2018-12-22 10:25 | PCM.TXEXTCAR ---
- Diet 12/19/18 01:50 Diet: Calorie-Controlled Food consistency:: Regular Liquid Consistency:: Regular/Thin How many daily calories?: 1800 calorie - Routine Orders/Code Status O2 Liters per Minute: 2 O2 Frequency: Continuous Routine Lab Work: INR - daily times 5 days-then weekly thereafter, - - Fingerstck blood sugars ACQ-coverage with Humalog SQ per protocol: 200-250: 5 units, 251-300: 10 units, 301-350: 12 units, 351-400: 15 units Code Status: Full Code - Therapies Weight Bearing: Full weight bearing Physical Therapy: Eval and Treat Occupational Therapy: Eval and Treat - Problem/Diagnosis (1) Chronic respiratory failure with hypoxia, on home O2 therapy Status: Chronic Current Visit: Yes (2) Type 2 diabetes mellitus Status: Chronic Current Visit: Yes (3) History of mitral valve replacement with mechanical valve Status: Chronic Current Visit: Yes (4) Chronic anticoagulation Status: Chronic Comment: DUE TO MECHANICAL MITRAL VALVE- KEEP INR BETWEEN 2.5 AND 3.5 Current Visit: Yes (5) Congestive heart disease Status: Acute Comment: diastolic Current Visit: Yes (6) COPD (chronic obstructive pulmonary disease) Status: Chronic Current Visit: Yes (7) Pulmonary hypertension, moderate to severe Status: Chronic Current Visit: Yes (8) Debility Status: Acute Current Visit: Yes (9) DJD (degenerative joint disease), lumbar Status: Chronic Current Visit: Yes - Allergies/Procedures Done in Hospital Allergies/Adverse Reactions: Allergies levofloxacin [From Levaquin] Allergy (Verified 12/18/18 17:06) Hives morphine Allergy (Verified 12/18/18 17:06) Shortness of breath Iodinated Contrast- Oral and IV Dye [CONTRASTS] Adverse Reaction (Verified 12/18/18 17:06) Swelling Procedures: 2-D Echocardiogram - Type of Care/Length of Stay Estimated LOS: Convalescent Care Less Than 30 days Type of Care Needed: Skilled Rehab Potential: Good Prognosis: Good - Additional Orders/Day of Discharge H&P will serve as current which was dated: 12/19/18 Day of Discharge: 12/22/18 - Follow Up Care Primary Care Physician: Care Physician,No Primary [Primary Care Provider] -
[2018-12-22 11:45] LABS: Bedside Glucose 215 mg/dL (70-110)
--- NOTE | 2018-12-22 19:55 | DS.PCM_ITS ---
Discharge Date and Diagnosis Date of Admission: 12/18/18 Date of Discharge: 12/22/18 - Primary Discharge Diagnosis #1 diastolic congestive heart failure #2 severe pulmonary hypertension #3 chronic hypoxic respiratory failure secondary to chronic obstructive pulmonary disease #4 chronic obstructive pulmonary disease #5 type 2 diabetes #6 osteoarthritis #7 generalized debility secondary to multiple medical factors including chronic hypoxic respiratory failure, chronic obstructive pulmonary disease, diastolic congestive heart failure, osteoarthritis, and type 2 diabetes #8 mitral valve disease with mechanical mitral valve #9 coagulopathy secondary to chronic warfarin usage #10 stage III chronic kidney disease-secondary to type 2 diabetes #11 hyperlipidemia - Secondary Discharge Diagnosis Chronic Problems Chronic respiratory failure with hypoxia, on home O2 therapy (Chronic) Type 2 diabetes mellitus (Chronic) History of mitral valve replacement with mechanical valve (Chronic) Chronic anticoagulation (Chronic) DUE TO MECHANICAL MITRAL VALVE- KEEP INR BETWEEN 2.5 AND 3.5 Pulmonary hypertension, moderate to severe (Chronic) DJD (degenerative joint disease), lumbar (Chronic) COPD (chronic obstructive pulmonary disease) (Chronic) Hospital Course and Treatment Operations: None Procedures: 2-D Echocardiogram Summary of Care Provided: The patient is a 73 year old F was seen in the emergency room at [facility] with complaints of shortness of breath, patient was brought from [place] by her family after her and the family felt that the patient was not able to continue to live by herself in [place] and brought her to [place]. Evaluation in the emergency room included a chest x-ray which showed no acute disease, CT angiogram of the chest was negative for PE or dissection, EKG showed normal sinus rhythm, troponin was unremarkable, beta natruretic peptide was 7.1. Patient was noted to be 83% on room air-patient stated that she normally uses 2 L of oxygen at all times due to a history of COPD. Patient was admitted to PCU, she was seen by PT and OT, and an echocardiogram was obtained which showed the patient had severe pulmonary hypertension but a preserved ejection fraction. Patient was given IV Lasix which helped her breathing somewhat. Patient's blood sugars were monitored and her insulin was adjusted. It was felt that the patient would benefit from short-term placement in a snf facility, patient agreed to this and the family also agreed to this. On 12/22/2018, patient was seen and examined: On examination she appeared in good health and spirits. Vital signs as documented. Skin warm and dry and without overt rashes. Neck without JVD. Lungs clear. Heart exam notable for regular rhythm, normal sounds and absence of murmurs, rubs or gallops. Abdomen unremarkable and without evidence of organomegaly, masses, or abdominal aortic enlargement. Extremities nonedematous. Neuro: Cranial nerves II through XII are grossly intact, no focal motor deficits were noted, sensation to light touch and pinprick is intact. Psych: Patient is alert and oriented x3, she does not appear anxious or depressed On 12/22/2018, patient was seen and examined and felt to be in stable condition for discharge to an extended care facility for rehab. - Physical Exam Vital Signs Temp Pulse Resp BP Pulse Ox 97.9 F 66 16 124/58 H 82 12/22/18 08:08 12/22/18 09:18 12/22/18 08:09 12/22/18 08:08 12/22/18 08:33 Oxygen Flow Rate (L/min) 2 Oxygen Delivery Method Nasal Cannula Weight: 100.4 kg Body Mass Index (BMI) 36.5 Intake and Output for Last 24 Hours 12/20/18 12/21/18 12/22/18 23:59 23:59 23:59 Intake Total 60 / 60 600 / 600 50 / 50 Output Total 200 / 200 Balance -140 / -140 600 / 600 50 / 50 Laboratory Tests Past 24 Hrs 12/22/18 06:33 PT 26.5 H INR 2.4 POC Glucose 12/22/18 12/22/18 12/21/18 11:36 06:58 21:18 POC Glucose 215 H 155 H 120 H Home Medications: Medications to take at Discharge Atorvastatin Calcium [Lipitor] 80 mg PO QHS 12/18/18 Cholecalciferol (VIT D3) [Vitamin D3] 1,000 unit PO DAILY 12/18/18 Digoxin [Digox] 125 mcg PO DAILY 12/18/18 Fluticasone/Vilanterol [Breo Ellipta 100-25 Mcg INH] 1 each IH DAILY 12/18/18 Furosemide [Lasix] 40 mg PO DAILY 12/18/18 Metoprolol Tartrate [Lopressor (beta mable)] 50 mg PO DAILY 12/18/18 Acetaminophen [Tylenol Tablet] 650 mg PO Q6H PRN PRN tablet 12/22/18 Furosemide [Lasix] 40 mg PO DAILY tablet 12/22/18 Guaifenesin [Robitussin] 10 ml PO Q4H PRN PRN udc 12/22/18 Insulin Glargine [Lantus SoloStar Pen] 40 units SC QHS pen 12/22/18 Insulin Lispro [Humalog KwikPen] 15 unit SC TIDAC insuln.pen 12/22/18 Ipratropium/Albuterol Sulfate [Duoneb] 3 ml INHALATION TID.RT ampul.neb 12/22 Losartan Potassium [Cozaar] 25 mg PO DAILY #1 tablet 12/22/18 Potassium Chloride [K-Dur] 20 meq PO DAILY #1 tablet 12/22/18 Warfarin [Coumadin] 3 mg PO DAILY@1700 tablet 12/22/18 Following Prescrptions Were Given to Patient: Losartan Potassium [Cozaar] 25 mg PO DAILY #1 tablet Potassium Chloride [K-Dur] 20 meq PO DAILY #1 tablet Primary Care Physician: Care Physician,No Primary [Primary Care Provider] - Disposition: Jail facility Minutes spent on discharge:: 32 Patient Condition:: Stable Medical Necessity - Tobacco Use Smoking Status: Former smoker Tobacco Use: Cigarettes Meaningful Use Info Meaningful Use Diagnoses (Choose all that apply): CHF - CHF GLORY/ARB ordered at discharge?: Yes Documented LVEF (%): 55 Code Visit Inpatient E&M: 20075 Disch Hosp
== END 2018-12-22 13:05 | disposition skilled nursing facility (03) | DRG 292 ==
LOC: ED 18:03 → PCU 12-19 02:36
PROVIDERS: Admitting Provider Hospitalist; Emergency Provider Emergency Medicine; Referring Provider Hospitalist; Visit Provider Internal Medicine
DX: I13.0 Hypertensive heart and chronic kidney disease with heart failure and stage 1 through stage 4 chronic kidney disease, or unspecified chronic kidney disease (principal); I50.30 Unspecified diastolic (congestive) heart failure; J96.11 Chronic respiratory failure with hypoxia; I25.10 Atherosclerotic heart disease of native coronary artery without angina pectoris; R62.7 Adult failure to thrive; I48.91 Unspecified atrial fibrillation; I27.20 Pulmonary hypertension, unspecified; J44.9 Chronic obstructive pulmonary disease, unspecified; M19.90 Unspecified osteoarthritis, unspecified site; Z95.2 Presence of prosthetic heart valve; Z79.01 Long term (current) use of anticoagulants; Z79.4 Long term (current) use of insulin; Z87.891 Personal history of nicotine dependence; Z68.36 Body mass index [BMI] 36.0-36.9, adult; Z99.81 Dependence on supplemental oxygen; E78.5 Hyperlipidemia, unspecified; Z95.5 Presence of coronary angioplasty implant and graft; E11.22 Type 2 diabetes mellitus with diabetic chronic kidney disease; N18.3 Chronic kidney disease, stage 3 (moderate)
CPT/HCPCS: 36415; 71046; 71275; 80048; 80053; 80162; 81001; 82962; 83735; 83880; 84443; 84484; 85025; 85610; 85730; 93005; 93306; 94640; 97116; 97162; 97166; 97530; 97535; 97803; 99285; Q9967; A4216; J1940

== ENCOUNTER 2019-01-12 14:38 | Observation (INO) | payer MEDICARE, OTHER, SELFPAY ==
[2018-12-19 02:03] VITALS: BMI 36.5
[2019-01-12] VITALS (9 sets, daily range): BP systolic 86–128; BP diastolic 50–75; PULSE 53–74; RESP 12–22; TEMP 36.3–36.6; O2SAT 93–97; BMI 39.9; BMI 37.1
--- NOTE | 2019-01-12 15:09 | ED.RN ---
daughter, Viki called in from [place] to check on pt. [phone]. update given.
--- NOTE | 2019-01-12 15:24 | EKG12_ITS ---
Test Reason : NAUSEA Blood Pressure : / mmHG Vent. Rate : 053 BPM Atrial Rate : 053 BPM P-R Int : 144 ms QRS Dur : 070 ms QT Int : 436 ms P-R-T Axes : 088 001 178 degrees QTc Int : 409 ms Atrial Flutter Low voltage QRS Nonspecific ST and T wave abnormality Abnormal ECG Confirmed by BELINDA CONNELLY, YANN ([id number]), assistant production editor HARSHAL SERRANO ([id number]) on 01/15/2019 9:10:13 AM Referred By: DEBBY Confirmed By:YANN TREVINO MD
--- NOTE | 2019-01-12 15:27 | ED.VISSUMM ---
- ER Visit Summary Date of Service: 01/12/19 Chief Complaint: Syncope History of Present Illness: The patient is a 73 F who presents after a syncopal episode. The patient resides in a nursing facility. She called the nurse to help her use the restroom. When she was in the bathroom, she went unresponsive. It sounds like she was unresponsive for several minutes. CPR was performed for a minute and a half. The patient recalls waking up with EMS at her side. She said that prior to this event, she was feeling well. Right now, she also says she feels well. She has no symptoms. She denies pain or shortness of breath. Patient has a history of COPD and pulmonary hypertension. She wears nasal cannula oxygen, 2 L. She also has a history of CHF and diabetes. She had a mitral valve replacement and takes Coumadin. Physical Examination: Afebrile and vital signs unremarkable except for a blood pressure of 91/65 and a heart rate of 53. The patient is alert and oriented. She appears comfortable and in no acute distress. She is speaking in full sentences. Head and neck are atraumatic. HEENT exam unremarkable. Cranial nerves normal grossly. Heart regular. Lungs clear. Chest is nontender. Abdomen is soft and nontender. Pulses strong and equal. No focal weakness or numbness on exam. Test Results: EKG, chest x-ray, labs pending. Emergency Department Course and Treatment: Patient placed on nasal cannula, 2 L. Placed on monitor. EKG, labs, chest x-ray pending. She was given a 500 mL bolus of normal saline. White count 15.8. I suspect this is reactive. Hemoglobin 11.1. Troponin normal. Digoxin 0.79. Creatinine 1.4. INR 3.7. EKG showed what appears to be atrial flutter with a 4-1 block at a rate of 53. She had atrial flutter on an EKG done December 18 of this year. Chest x-ray showed nothing acute. On reevaluation, the patient continues to have a heart rate in the 50s. Blood pressure is in the 90s systolic. Her map has been greater than 65. She is mentating and perfusing well. She has no symptoms whatsoever at this point. I spoke to her about her low heart rate and blood pressure. She said her doctor discontinued her metoprolol today. I suspect this is probably vasovagal syncope. Her work-up is otherwise reassuring. I do think that she may show improvement with the discontinued metoprolol. I spoke with the hospitalist to observe. Treatment Plan: As above Disposition: Observation PCU Impression: 1. Syncope 2. Atrial flutter This note was generated with [employer] dictation software. It may contain incorrect words, spelling, and punctuation that were not noted in review of the chart prior to signing ED Disposition - Plan for ED Patient: Referrals: Veto Stanley MD [Primary Care Provider] -
--- NOTE | 2019-01-12 15:36 | RAD_ITS ---
STUDY: X-RAY CHEST REASON FOR EXAM: Female, 73 years old. Chest pain and shortness of breath TECHNIQUE: AP COMPARISON: 12/18/2018 FINDINGS: EKG leads project over the chest. Lungs continue to be hyperinflated with mild scarring in the lung bases. There is pleural fibrotic scarring of the left costophrenic angle. There is moderate cardiac enlargement. Sternal wires and prosthetic aortic valve identified. Residual pacer wire noted. Normal visualized pulmonary arteries. There is atherosclerotic calcification of the aortic arch with tortuosity. No acute bony process. There is no demonstrated abnormality of the visualized soft tissue structures of the upper abdomen. RAD/Chest 1 View (Portable) IMPRESSION: Stable, nonacute portable x-ray examination of the chest. Electronically Signed: Stephen Hartman MD at 15:50 EDT , Service support ,
[2019-01-12 16:58] LABS: Anion Gap 7 (5-15); BUN 14 mg/dL (7-18); Calcium,Total 8.2 mg/dL (8.5-10.1); Chloride 104 mmol/L (98-107); EST Glomerular Filtration Rate 39 mL/min (>60); Est Glom Filt Rate - Afr Amer 48 mL/min (>60); Estimated Creatinine Clearance 31.83 ml/min; Glucose 211 mg/dL (74-106); Sodium Level 137 mmol/L (136-145)
[2019-01-12 16:59] LABS: Prothrombin Time (Protime)PT. 37.2 SECONDS (11.7-14.9)
[2019-01-12 17:00] LABS: Absolute Lymphocyte Count 1.25 X10^3/ul (0.83-4.51); Absolute Neutrophil Count 13.6 X10^3/uL (2.0-7.7); Basophil# 0.03 X10^3/uL; Basophil% 0.2 % (0-1); Eosinophil# 0.21 X10^3/uL; Eosinophils% 1.3 % (0-5); Hematocrit 36.6 % (37-47); Hemoglobin 11.1 g/dl (12.0-15.0); Lymphocyte # 1.25 X10^3/ul (4.0); Lymphocyte % 7.9 % (19-41); Mean Corp Hgb Conc 30.3 g/gl (32-36); Mean Corpuscular Hgb 26.2 pg (27.0-32.0); Mean Corpuscular Volume 86.5 fL (81-99); Mean Platelet Vol. 11.9 fl (6.2-12.0); Monocyte# 0.72 X10^3/uL; Monocyte% 4.6 % (0-10); Neutrophil # 13.55 X10^3/uL (2.7-7.7); Neutrophil % 85.7 % (47-70); Platelet Count 258 K/mm3 (150-450); RBC Distribution Width CV 18.5 % (11.6-14.6); RBC Distribution Width SD 58.7 fl (35.1-43.9); Red Blood Count 4.23 M/mm3 (4.2-5.4); White Blood Count 15.8 K/mm3 (4.4-11.0)
[2019-01-12 17:01] LABS: Differential Indicated SCAN CRITERIA MET; POSITIVE COUNT NO; POSITIVE DIFFERENTIAL NO; POSITIVE MORPHOLOGY YES
[2019-01-12 17:03] LABS: International Normalized Ratio 3.7
--- NOTE | 2019-01-12 17:04 | ED.RN ---
LAB RESULTED INR 3.7, PHYSICIAN NOTIFIED
[2019-01-12 17:29] LABS: Digoxin Level 0.79 ng/mL (0.80-2.00)
[2019-01-12 17:30] LABS: Differential Comment SCANNED
--- NOTE | 2019-01-12 18:06 | ED.RN ---
called daughter to update on admission to PCU
--- NOTE | 2019-01-12 18:32 | HP.PCM_ITS ---
Problem List (1) Chronic respiratory failure with hypoxia, on home O2 therapy Status: Chronic (2) Type 2 diabetes mellitus Status: Chronic (3) History of mitral valve replacement with mechanical valve Status: Chronic (4) Chronic anticoagulation Status: Chronic Comment: DUE TO MECHANICAL MITRAL VALVE- KEEP INR BETWEEN 2.5 AND 3.5 (5) Pulmonary hypertension, moderate to severe Status: Chronic (6) Debility Status: Acute (7) DJD (degenerative joint disease), lumbar Status: Chronic (8) COPD (chronic obstructive pulmonary disease) Status: Chronic History of Present Illness Date of Admission: 01/12/19 Chief Complaint: Syncope The patient is a 73 year old F with PMH as below who [facility]. She states that she was recently started on a water pill and had to get up to urinate this afternoon and when she was on the toilet she felt nauseated and started throwing up so they gave her a bucket to throw up into and when she was ready to get up to go back to bed as they were helping her up from the toilet she blacked out and was lowered to the ground. She states that she was told she had asystole and they started CPR on her though there is no mason or bruising on her chest. And she is perfectly alert and oriented and denies any residual symptoms. She was recently admitted in the hospital with shortness of breath, and had an echocardiogram which demonstrated a normal EF but because of her A. fib they could not evaluate her diastolic function and she was felt to have diastolic heart failure. In the ER her EKG was unremarkable with signs of a flutter though her heart rate was normal and her lab work was remarkable for a leukocytosis of 15.8 and an INR of 3.7 though since she has a mitral valve replacement her Coumadin range is 2.5-3.5. Past Medical History Past Medical History (Chronic Problems): Chronic Problems Chronic respiratory failure with hypoxia, on home O2 therapy (Chronic) Type 2 diabetes mellitus (Chronic) History of mitral valve replacement with mechanical valve (Chronic) Chronic anticoagulation (Chronic) DUE TO MECHANICAL MITRAL VALVE- KEEP INR BETWEEN 2.5 AND 3.5 Pulmonary hypertension, moderate to severe (Chronic) DJD (degenerative joint disease), lumbar (Chronic) COPD (chronic obstructive pulmonary disease) (Chronic) Allergies levofloxacin [From Levaquin] Allergy (Verified 01/12/19 14:43) Hives morphine Allergy (Verified 01/12/19 14:43) Shortness of breath Iodinated Contrast- Oral and IV Dye [CONTRASTS] Adverse Reaction (Verified 01/12/19 14:43) Swelling Home Medications: Ambulatory Orders Medication Instructions Recorded Atorvastatin Calcium [Lipitor] 80 mg PO QHS 12/18/18 Cholecalciferol (VIT D3) [Vitamin 1,000 unit PO DAILY 12/18/18 D3] Digoxin [Digox] 125 mcg PO DAILY 12/18/18 Fluticasone/Vilanterol [Breo 1 each IH DAILY 12/18/18 Ellipta 100-25 Mcg INH] Furosemide [Lasix] 40 mg PO DAILY 12/18/18 Metoprolol Tartrate [Lopressor 50 mg PO DAILY 12/18/18 (beta mable)] Acetaminophen [Tylenol Tablet] 650 mg PO Q6H PRN PRN tablet 12/22/18 Guaifenesin [Robitussin] 10 ml PO Q4H PRN PRN udc 12/22/18 Insulin Glargine [Lantus SoloStar 40 units SC QHS pen 12/22/18 Pen] Losartan Potassium [Cozaar] 25 mg PO DAILY #1 tablet 12/22/18 Potassium Chloride [K-Dur] 20 meq PO DAILY #1 tablet 12/22/18 Warfarin [Coumadin] 3 mg PO DAILY@1700 tablet 12/22/18 Insulin Lispro [Humalog KwikPen] See Protocol SC TIDAC 01/12/19 Ipratropium/Albuterol Sulfate 3 ml INHALATION TID 01/12/19 [Duoneb] Surgical History: - - Coronary stents; valvular replacements. Smoking Status: Former smoker Tobacco Use: Cigarettes Alcohol: None Drugs: None - *Family History Maternal History Items: Heart Disease Paternal History Items: Heart Disease Review of Systems Constitutional: Denies: Chills, Fever, Weight Change HEENT: Denies: Head Aches, Sinus Congestion, Sinus Drainage Cardiovascular: Reports: Syncope. Denies: Chest Pain, Palpitations Respiratory: Denies: Cough, Shortness of breath at rest, Sputum production Gastrointestinal: Reports: Nausea, Vomiting. Denies: Abdominal Pain Genitourinary: Denies: Dysuria Musculoskeletal: Denies: Joint Pain, Joint Tenderness Skin: Denies: Rash, Wounds Neurological: Denies: Numbness, Tingling, Focal weakness Psychiatric: Denies: Anxiety, Depression Hematologic/ Lymphatic: Denies: Easy Bruising, Easy Bleeding VTE Information - Inpt Only VTE Present on Admission: No - Physical Exam General: Alert, Oriented x3, Cooperative, No apparent distress HEENT: Atraumatic, PERRLA, EOMI, Normocephalic Oral: Moist Mucosa Neck: Supple, No JVD Lungs: Clear to auscultation, Normal air movement, No rhonchi, No wheeze, No rales Cardiovascular: Regular rate, Regular Rhythm, Normal S1, Normal S2, No murmurs Abdomen: Soft, Non Tender, Non-Distended, No Hepato-splenomegaly Extremities: No edema, Capillary Refill Less than 3 Seconds Skin: No rashes, No breakdown Neurological: Neuro grossly intact, Sensory exam intact to light touch and pain Psych/Mental Status: Normal Affect, Appropriate Vital Signs Temp Pulse Resp BP Pulse Ox 97.4 F L 53 L 12 102/75 97 01/12/19 14:40 01/12/19 18:01 01/12/19 18:01 01/12/19 18:01 01/12/19 18:01 Oxygen Flow Rate (L/min) 2 Oxygen Delivery Method Nasal Cannula Weight: 232 lb 9.403 oz Body Mass Index (BMI) 39.9 Laboratory Tests Past 24 Hrs 01/12/19 01/12/19 01/12/19 15:25 15:25 15:25 WBC RBC Hgb Hct MCV MCH MCHC RDW RDW Differential Plt Count MPV Immature Gran % (Auto) Neut % (Auto) Lymph % (Auto) [place] % (Auto) Eos % (Auto) Baso % (Auto) Absolute Neuts (auto) Absolute Lymphs (auto) Total Counted Differential Comment PT 37.2 H INR 3.7 H* Sodium 137 Potassium 4.0 Chloride 104 Carbon Dioxide 26.0 Anion Gap 7 BUN 14 Creatinine 1.40 H Estim Creat Clear Calc 31.83 Est GFR (MDRD) Af Amer 48 L Est GFR (MDRD) Non-Af 39 L BUN/Creatinine Ratio 10.0 Glucose 211 H Calcium 8.2 L Troponin I 0.025 Digoxin 0.79 L 01/12/19 16:25 WBC 15.8 H RBC 4.23 Hgb 11.1 L Hct 36.6 L MCV 86.5 MCH 26.2 L MCHC 30.3 L RDW 18.5 H RDW Differential 58.7 H Plt Count 258 MPV 11.9 Immature Gran % (Auto) 0.300 Neut % (Auto) 85.7 H Lymph % (Auto) 7.9 L [place] % (Auto) 4.6 Eos % (Auto) 1.3 Baso % (Auto) 0.2 Absolute Neuts (auto) 13.6 H Absolute Lymphs (auto) 1.25 Total Counted Not Reportable Differential Comment SCANNED PT INR Sodium Potassium Chloride Carbon Dioxide Anion Gap BUN Creatinine Estim Creat Clear Calc Est GFR (MDRD) Af Amer Est GFR (MDRD) Non-Af BUN/Creatinine Ratio Glucose Calcium Troponin I Digoxin Assessment/Plan All Active Problems Debility (Acute) Adult failure to thrive (Acute) Congestive heart disease (Acute) Acute hypoxemic respiratory failure (Ruled-out) Acute on chronic respiratory failure with hypoxemia (Ruled-out) 1. Vasovagal syncope with possible cardiac arrest necessitating CPR/CAD status post stents/mitral valve replacement/diastolic CHF/A. fib -Per report from the long-term she was not feeling well this morning and in the afternoon she dropped her pressures into the 80s which is when she became nauseated and threw up at which point they were wheeling her out of the bathroom when she felt she needed to throw up again and by the time the nurse they turn ed around with the Darbid she can for her to throw up and she was not breathing, tineo in the face, and was turning blue. They called for help and the nurse who came in could not feel a pulse or hear breath sounds and they started CPR. She says that she did 4 rounds of CPR before Ms. Allen woke up and reminded the staff that her 4 weeks earlier. -We will consult cardiology for medication management with her pulmonary hypertension and her diastolic heart failure -She had an echo early December with an EF of 55 to 60%, unknown diastolic function, severe pulmonary hypertension with RVSP at 75 mmHg -We will obtain serial troponins -Continue to monitor in PCU with telemetry, will hold metoprolol and Lasix at the moment -Digoxin level is low, continue with Lipitor -INR is 3.7 admission we will continue to monitor daily 2. Chronic hypoxic respiratory failure -She is on her baseline oxygen use of 2 L nasal cannula -We will continue with her home aerosols 3. IDDM 2 -Blood glucose is 211 -We will continue with her home insulin dose and monitor blood sugars before meals at bedtime 4. Leukocytosis -Unsure as to the etiology is likely reactive secondary to CPR and emesis -Monitor with a CBC in the morning DVT: Coumadin Code Visit OBSV E&M: [id number] Initial observation care L3
[2019-01-12] MEDS: Atorvastatin Calcium 80 MG Tablet PO (21:31)
[2019-01-12] MEDS: 0.9% Normal Saline 1,000 ML 75 ML IV (21:39)
[2019-01-12] MEDS: Insulin Lispro 100 UNIT/ML INSULN.PEN SC (21:39)
[2019-01-12 22:36] LABS: Bedside Glucose 233 mg/dL (70-110)
[2019-01-12] MEDS: 0.9% NaCl Peripheral Flush Adult/Peds IV (23:09)
[2019-01-12 23:43] LABS: Bacteria 0 SEEN /hpf (None Seen); Mucous, Urine 0 SEEN /hpf (<or=2+); Red Blood Cells-Urine 0 SEEN /hpf (0-5); Squamous Epithelial Cells - UA 0 SEEN /hpf (5-10); White Blood Cells 0 SEEN /hpf (0-5)
[2019-01-12 23:50] LABS: Color, Urine Yellow (Yellow); Glucose, Dipstick Normal (Normal); Ketone-Dipstick 5 mg/dl (Negative); Leukocyte Esterase-Dipstick 25 /ul (Negative); Nitrite-Dipstick Negative (Negative); Occult Blood-Urine Negative /ul (Negative); Protein-Dipstick 30 mg/dl (Negative); Urine Bilirubin Dipstick Negative (Negative); Urine Clarity Clear (Clear); Urine Urobilinogen Normal (Normal)
[2019-01-13] VITALS (10 sets, daily range): BP systolic 106–129; BP diastolic 48–60; PULSE 65–98; RESP 18–22; TEMP 36.4–36.6; O2SAT 93–95
[2019-01-13 03:58] LABS: International Normalized Ratio 3.3; Prothrombin Time (Protime)PT. 34.1 SECONDS (11.7-14.9)
[2019-01-13 04:00] LABS: Anion Gap 10 (5-15); BUN 14 mg/dL (7-18); BUN/Creat Ratio 11.8 RATIO (10-20); Chloride 105 mmol/L (98-107); Creatinine, Serum 1.19 mg/dL (0.55-1.02); EST Glomerular Filtration Rate 47 mL/min (>60); Est Glom Filt Rate - Afr Amer 57 mL/min (>60); Estimated Creatinine Clearance 39.02 ml/min; Glucose 180 mg/dL (74-106); Potassium 3.7 mmol/L (3.5-5.1); Sodium Level 137 mmol/L (136-145)
[2019-01-13 04:05] LABS: Absolute Lymphocyte Count 1.08 X10^3/ul (0.83-4.51); Basophil# 0.02 X10^3/uL; Basophil% 0.1 % (0-1); Eosinophil# 0.03 X10^3/uL; Eosinophils% 0.2 % (0-5); Hematocrit 34.7 % (37-47); Hemoglobin 10.8 g/dl (12.0-15.0); Lymphocyte # 1.08 X10^3/ul (4.0); Mean Corp Hgb Conc 31.1 g/gl (32-36); Mean Corpuscular Hgb 26.8 pg (27.0-32.0); Mean Corpuscular Volume 86.1 fL (81-99); Mean Platelet Vol. 11.4 fl (6.2-12.0); Monocyte# 0.87 X10^3/uL; Monocyte% 4.8 % (0-10); Neutrophil # 15.99 X10^3/uL (2.7-7.7); Neutrophil % 88.6 % (47-70); Platelet Count 253 K/mm3 (150-450); RBC Distribution Width CV 18.3 % (11.6-14.6); RBC Distribution Width SD 57.9 fl (35.1-43.9); Red Blood Count 4.03 M/mm3 (4.2-5.4)
[2019-01-13 04:08] LABS: POSITIVE COUNT NO; POSITIVE DIFFERENTIAL NO; POSITIVE MORPHOLOGY NO
[2019-01-13 07:00] LABS: Bedside Glucose 142 mg/dL (70-110)
[2019-01-13] MEDS: Budesonide Respules 0.5 MG/2 ML AMPUL.NEB. INHALATION (07:14)
[2019-01-13] MEDS: Ipratropium/Albuterol Sulfate 3 ML AMPUL.NEB INHALATION ×2 (07:14→13:38)
[2019-01-13] MEDS: Glucerna Shake 120 ML LIQUID PO ×2 (07:48→11:17)
--- NOTE | 2019-01-13 08:03 | PCM.PN.HOSP ---
Subjective: Feeling well today, stating that she was nauseated last night and is little bit nauseated this morning. She did have an episode of emesis last night which was just clear saliva. She denies any abdominal pain, but she has been lightheaded especially during her orthostatic vital signs which were normal Vitals/I&O's: Vital Signs Temp Pulse Resp BP Pulse Ox 97.7 F L 81 18 114/60 95 01/13/19 03:00 01/13/19 06:53 01/13/19 03:00 01/13/19 03:00 01/13/19 03:00 Oxygen Flow Rate (L/min) 3 Oxygen Delivery Method Nasal Cannula Weight: 223 lb 1.725 oz Body Mass Index (BMI) 37.1 Orthostatic Vital Signs Start: 01/12/19 22:31 Freq: q24h Status: Active Protocol: Activity Type Activity Date Activity User E-Sign Co-Sign Detail Recorded Client Recorded Date Recorded By Document 01/12/19 20:[address] [facility] [id number] 01/12/19 22:[address] [facility] 01/12/19 20:45 Orthostatic Vitals Standing -Blood Pressure (90/60-120/80 mm Hg) 128/63 H -Extremity Use Right Arm -Pulse Rate (60-100 beats/min) 63 Sitting -Blood Pressure (90/60-120/80 mm Hg) 104/57 L -Extremity Use Right Arm -Pulse Rate (60-100 beats/min) 57 L Lying -Blood Pressure (90/60-120/80 mm Hg) 114/50 L -Extremity Use Right Arm -Pulse Rate (60-100 beats/min) 53 L Intake and Output for Last 24 Hours 01/11/19 01/12/19 01/13/19 23:59 23:59 23:59 Intake Total 771 / 771 Output Total 230 / 230 Balance 541 / 541 General: Alert, Oriented x3, Cooperative, No apparent distress/slightly diaphoretic HEENT: Atraumatic, PERRLA, EOMI, Normocephalic Oral: Moist Mucosa Neck: Supple, No JVD Lungs: Clear to auscultation, Normal air movement, No rhonchi, No wheeze, No rales Cardiovascular: Regular rate, Regular Rhythm, Normal S1, Normal S2, No murmurs Abdomen: Soft, Non Tender, Non-Distended, No Hepato-splenomegaly Extremities: No edema, Capillary Refill Less than 3 Seconds Skin: No rashes, No breakdown Neurological: Neuro grossly intact, Sensory exam intact to light touch and pain Psych/Mental Status: Normal Affect, Appropriate Laboratory Results 01/12/19 15:25: PT 37.2 H, INR 3.7 H* 01/12/19 15:25: Sodium 137, Potassium 4.0, Chloride 104, Carbon Dioxide 26.0, Anion Gap 7, BUN 14, Creatinine 1.40 H, Estim Creat Clear Calc 31.83, Est GFR (MDRD) Af Amer 48 L, Est GFR (MDRD) Non-Af 39 L, BUN/Creatinine Ratio 10.0, Glucose 211 H, Calcium 8.2 L, Troponin I 0.025 01/12/19 15:25: Digoxin 0.79 L 01/12/19 16:25: WBC 15.8 H, RBC 4.23, Hgb 11.1 L, Hct 36.6 L, MCV 86.5, MCH 26.2 L, MCHC 30.3 L, RDW 18.5 H, RDW Differential 58.7 H, Plt Count 258, MPV 11.9, Immature Gran % (Auto) 0.300, Neut % (Auto) 85.7 H, Lymph % (Auto) 7.9 L, [place] % (Auto) 4.6, Eos % (Auto) 1.3, Baso % (Auto) 0.2, Absolute Neuts (auto) 13.6 H, Absolute Lymphs (auto) 1.25, Total Counted Not Reportable, Differential Comment SCANNED 01/12/19 21:34: POC Glucose 233 H 01/12/19 23:00: Urine Color Yellow, Urine Clarity Clear, Urine pH 5.0, Ur Specific [place] 1.020, Urine Protein 30 H, Urine Glucose (UA) Normal, Urine Ketones 5 H, Urine Occult Blood Negative, Urine Nitrite Negative, Urine Bilirubin Negative, Urine Urobilinogen Normal, Ur Leukocyte Esterase 25 H, Urine RBC 0 SEEN, Urine WBC 0 SEEN, Ur Squamous Epith Cells 0 SEEN, Urine Bacteria 0 SEEN, Urine Mucus 0 SEEN 01/13/19 00:42: Troponin I < 0.015 01/13/19 03:30: WBC 18.0 H, RBC 4.03 L, Hgb 10.8 L, Hct 34.7 L, MCV 86.1, MCH 26.8 L, MCHC 31.1 L, RDW 18.3 H, RDW Differential 57.9 H, Plt Count 253, MPV 11.4, Immature Gran % (Auto) 0.300, Neut % (Auto) 88.6 H, Lymph % (Auto) 6.0 L, [place] % (Auto) 4.8, Eos % (Auto) 0.2, Baso % (Auto) 0.1, Absolute Neuts (auto) 16.0 H, Absolute Lymphs (auto) 1.08, Total Counted Not Reportable 01/13/19 03:30: Sodium 137, Potassium 3.7, Chloride 105, Carbon Dioxide 22.0, Anion Gap 10, BUN 14, Creatinine 1.19 H, Estim Creat Clear Calc 39.02, Est GFR (MDRD) Af Amer 57 L, Est GFR (MDRD) Non-Af 47 L, BUN/Creatinine Ratio 11.8, Glucose 180 H, Calcium 8.0 L 01/13/19 03:30: PT 34.1 H, INR 3.3 01/13/19 03:30: Troponin I 0.015 01/13/19 06:54: POC Glucose 142 H Current Medications Acetaminophen (Tylenol) 650 mg PO Q6H PRN PRN PRN Reason: Mild pain 1-3/Temp > 100.7 F Albuterol/Ipratropium (Duoneb) 3 ml INHALATION TID [facility] Last Admin: 01/13/19 07:14 Dose: 3 ml Atorvastatin Calcium (Lipitor) 80 mg PO QHS [facility] Last Admin: 01/12/19 21:31 Dose: 80 mg Budesonide (Pulmicort Aerosol) 0.5 mg INHALATION Q12H.RT [facility] Last Admin: 01/13/19 07:14 Dose: 0.5 mg Dextrose (D50w Syringe) 0 gm IV X1 PRN; Protocol PRN Reason: Hypoglycemia Digoxin (Lanoxin) 125 mcg PO DAILY [facility] Glucagon () 1 mg IM .X1 PRN PRN Reason: Hypoglycemia Sodium Chloride () 1,000 mls @ 75 mls/hr IV .[id number] [facility] Last Admin: 01/12/19 21:39 Dose: 75 mls/hr Insulin Glargine (Lantus (Bkc)) 40 units SC QHS [facility] Last Admin: 01/12/19 21:38 Dose: 40 units Insulin Human Lispro (Humalog Kwikpen ([facility])) 0 unit SC ACHS [facility]; Protocol Last Admin: 01/13/19 06:55 Dose: Not Given Nutritional Formula (Lactose Free) (Glucerna Shake) 120 ml PO TIDCM [facility] Last Admin: 01/13/19 07:48 Dose: 120 ml Ondansetron HCl (Zofran) 4 mg IV Q8H PRN PRN PRN Reason: NAUSEA Potassium Chloride (K-Dur) 20 meq PO DAILY [facility] Sodium Chloride () 5 - 15 ml IV UD PRN PRN Reason: SALINE FLUSH Last Admin: 01/12/19 23:09 Dose: 10 ml Warfarin Sodium (Coumadin (Pbkc)) 3 mg PO DAILY@1700 [facility] Medical Necessity - Tobacco Use Smoking Status: Former smoker Tobacco Use: Cigarettes Assessment/Plan All Active Problems Debility (Acute) Adult failure to thrive (Acute) Congestive heart disease (Acute) Acute hypoxemic respiratory failure (Ruled-out) Acute on chronic respiratory failure with hypoxemia (Ruled-out) 1. Vasovagal syncope with possible cardiac arrest necessitating CPR/CAD status post stents/mitral valve replacement/diastolic CHF/A. fib -Per report from the [facility] she was not feeling well this morning and in the afternoon she dropped her pressures into the 80s which is when she became nauseated and threw up at which point they were wheeling her out of the bathroom when she felt she needed to throw up again and by the time the nurse turned around with the bucket she was not breathing, tineo in the face, and was turning blue. They called for help and the nurse who came in could not feel a pulse or hear breath sounds and they started CPR. She says that she did 4 rounds of CPR before Ms. Allen woke up and reminded the staff that her 4 weeks earlier. -We will consult cardiology for medication management with her pulmonary hypertension and her diastolic heart failure -She had an echo early December with an EF of 55 to 60%, unknown diastolic function, severe pulmonary hypertension with RVSP at 75 mmHg -Troponins were normal -Continue to monitor in PCU with telemetry, will hold metoprolol and Lasix at the moment -Digoxin level is low, continue with Lipitor -INR is 3.7 admission we will continue to monitor daily 2. Chronic hypoxic respiratory failure -She is on her baseline oxygen use of 2 L nasal cannula -We will continue with her home aerosols 3. IDDM 2 -Blood glucose is 211 -We will continue with her home insulin dose and monitor blood sugars before meals at bedtime 4. Leukocytosis -Unsure as to the etiology is likely reactive secondary to CPR and emesis -WBC has increased to 18, she remains afebrile -Given her nausea and her repeated vomiting could be viral gastritis DVT: Coumadin Code Visit OBSV E&M: [id number] Subsequent observation care L2
--- NOTE | 2019-01-13 08:08 | PN_ITS ---
Subjective: Feeling well today, stating that she was nauseated last night and is little bit nauseated this morning. She did have an episode of emesis last night which was just clear saliva. She denies any abdominal pain, but she has been lightheaded especially during her orthostatic vital signs which were normal Vitals/I&O's: Vital Signs Temp Pulse Resp BP Pulse Ox 97.7 F L 81 18 114/60 95 01/13/19 03:00 01/13/19 06:53 01/13/19 03:00 01/13/19 03:00 01/13/19 03:00 Oxygen Flow Rate (L/min) 3 Oxygen Delivery Method Nasal Cannula Weight: 223 lb 1.725 oz Body Mass Index (BMI) 37.1 Orthostatic Vital Signs Start: 01/12/19 22:31 Freq: q24h Status: Active Protocol: Activity Type Activity Date Activity User E-Sign Co-Sign Detail Recorded Client Recorded Date Recorded By Document 01/12/19 20:45 [facility] [id number] 01/12/19 22:32 [facility] 01/12/19 20:45 Orthostatic Vitals Standing -Blood Pressure (90/60-120/80 mm Hg) 128/63 H -Extremity Use Right Arm -Pulse Rate (60-100 beats/min) 63 Sitting -Blood Pressure (90/60-120/80 mm Hg) 104/57 L -Extremity Use Right Arm -Pulse Rate (60-100 beats/min) 57 L Lying -Blood Pressure (90/60-120/80 mm Hg) 114/50 L -Extremity Use Right Arm -Pulse Rate (60-100 beats/min) 53 L Intake and Output for Last 24 Hours 01/11/19 01/12/19 01/13/19 23:59 23:59 23:59 Intake Total 771 / 771 Output Total 230 / 230 Balance 541 / 541 General: Alert, Oriented x3, Cooperative, No apparent distress/slightly diaphoretic HEENT: Atraumatic, PERRLA, EOMI, Normocephalic Oral: Moist Mucosa Neck: Supple, No JVD Lungs: Clear to auscultation, Normal air movement, No rhonchi, No wheeze, No rales Cardiovascular: Regular rate, Regular Rhythm, Normal S1, Normal S2, No murmurs Abdomen: Soft, Non Tender, Non-Distended, No Hepato-splenomegaly Extremities: No edema, Capillary Refill Less than 3 Seconds Skin: No rashes, No breakdown Neurological: Neuro grossly intact, Sensory exam intact to light touch and pain Psych/Mental Status: Normal Affect, Appropriate Laboratory Results 01/12/19 15:25: PT 37.2 H, INR 3.7 H* 01/12/19 15:25: Sodium 137, Potassium 4.0, Chloride 104, Carbon Dioxide 26.0, Anion Gap 7, BUN 14, Creatinine 1.40 H, Estim Creat Clear Calc 31.83, Est GFR (MDRD) Af Amer 48 L, Est GFR (MDRD) Non-Af 39 L, BUN/Creatinine Ratio 10.0, Glucose 211 H, Calcium 8.2 L, Troponin I 0.025 01/12/19 15:25: Digoxin 0.79 L 01/12/19 16:25: WBC 15.8 H, RBC 4.23, Hgb 11.1 L, Hct 36.6 L, MCV 86.5, MCH 26.2 L, MCHC 30.3 L, RDW 18.5 H, RDW Differential 58.7 H, Plt Count 258, MPV 11.9, Immature Gran % (Auto) 0.300, Neut % (Auto) 85.7 H, Lymph % (Auto) 7.9 L, [place] % (Auto) 4.6, Eos % (Auto) 1.3, Baso % (Auto) 0.2, Absolute Neuts (auto) 13.6 H, Absolute Lymphs (auto) 1.25, Total Counted Not Reportable, Differential Comment SCANNED 01/12/19 21:34: POC Glucose 233 H 01/12/19 23:00: Urine Color Yellow, Urine Clarity Clear, Urine pH 5.0, Ur Specific [place] 1.020, Urine Protein 30 H, Urine Glucose (UA) Normal, Urine Ketones 5 H, Urine Occult Blood Negative, Urine Nitrite Negative, Urine Bilirubin Negative, Urine Urobilinogen Normal, Ur Leukocyte Esterase 25 H, Urine RBC 0 SEEN, Urine WBC 0 SEEN, Ur Squamous Epith Cells 0 SEEN, Urine Bacteria 0 SEEN, Urine Mucus 0 SEEN 01/13/19 00:42: Troponin I < 0.015 01/13/19 03:30: WBC 18.0 H, RBC 4.03 L, Hgb 10.8 L, Hct 34.7 L, MCV 86.1, MCH 26.8 L, MCHC 31.1 L, RDW 18.3 H, RDW Differential 57.9 H, Plt Count 253, MPV 11.4, Immature Gran % (Auto) 0.300, Neut % (Auto) 88.6 H, Lymph % (Auto) 6.0 L, [place] % (Auto) 4.8, Eos % (Auto) 0.2, Baso % (Auto) 0.1, Absolute Neuts (auto) 16.0 H, Absolute Lymphs (auto) 1.08, Total Counted Not Reportable 01/13/19 03:30: Sodium 137, Potassium 3.7, Chloride 105, Carbon Dioxide 22.0, Anion Gap 10, BUN 14, Creatinine 1.19 H, Estim Creat Clear Calc 39.02, Est GFR (MDRD) Af Amer 57 L, Est GFR (MDRD) Non-Af 47 L, BUN/Creatinine Ratio 11.8, Glucose 180 H, Calcium 8.0 L 01/13/19 03:30: PT 34.1 H, INR 3.3 01/13/19 03:30: Troponin I 0.015 01/13/19 06:54: POC Glucose 142 H Current Medications Acetaminophen (Tylenol) 650 mg PO Q6H PRN PRN PRN Reason: Mild pain 1-3/Temp > 100.7 F Albuterol/Ipratropium (Duoneb) 3 ml INHALATION TID [facility] Last Admin: 01/13/19 07:14 Dose: 3 ml Atorvastatin Calcium (Lipitor) 80 mg PO QHS [facility] Last Admin: 01/12/19 21:31 Dose: 80 mg Budesonide (Pulmicort Aerosol) 0.5 mg INHALATION Q12H.RT [facility] Last Admin: 01/13/19 07:14 Dose: 0.5 mg Dextrose (D50w Syringe) 0 gm IV X1 PRN; Protocol PRN Reason: Hypoglycemia Digoxin (Lanoxin) 125 mcg PO DAILY [facility] Glucagon () 1 mg IM .X1 PRN PRN Reason: Hypoglycemia Sodium Chloride () 1,000 mls @ 75 mls/hr IV .[id number] [facility] Last Admin: 01/12/19 21:39 Dose: 75 mls/hr Insulin Glargine (Lantus (Bkc)) 40 units SC QHS [facility] Last Admin: 01/12/19 21:38 Dose: 40 units Insulin Human Lispro (Humalog Kwikpen ([facility])) 0 unit SC ACHS [facility]; Protocol Last Admin: 01/13/19 06:55 Dose: Not Given Nutritional Formula (Lactose Free) (Glucerna Shake) 120 ml PO TIDCM [facility] Last Admin: 01/13/19 07:48 Dose: 120 ml Ondansetron HCl (Zofran) 4 mg IV Q8H PRN PRN PRN Reason: NAUSEA Potassium Chloride (K-Dur) 20 meq PO DAILY [facility] Sodium Chloride () 5 - 15 ml IV UD PRN PRN Reason: SALINE FLUSH Last Admin: 01/12/19 23:09 Dose: 10 ml Warfarin Sodium (Coumadin (Pbkc)) 3 mg PO DAILY@1700 [facility] Medical Necessity - Tobacco Use Smoking Status: Former smoker Tobacco Use: Cigarettes Assessment/Plan All Active Problems Debility (Acute) Adult failure to thrive (Acute) Congestive heart disease (Acute) Acute hypoxemic respiratory failure (Ruled-out) Acute on chronic respiratory failure with hypoxemia (Ruled-out) 1. Vasovagal syncope with possible cardiac arrest necessitating CPR/CAD status post stents/mitral valve replacement/diastolic CHF/A. fib -Per report from the half-way she was not feeling well this morning and in the afternoon she dropped her pressures into the 80s which is when she became nauseated and threw up at which point they were wheeling her out of the bathroom when she felt she needed to throw up again and by the time the nurse turned around with the bucket she was not breathing, tineo in the face, and was turning blue. They called for help and the nurse who came in could not feel a pulse or hear breath sounds and they started CPR. She says that she did 4 rounds of CPR before Ms. Allen woke up and reminded the staff that her 4 weeks earlier. -We will consult cardiology for medication management with her pulmonary hypertension and her diastolic heart failure -She had an echo early December with an EF of 55 to 60%, unknown diastolic function, severe pulmonary hypertension with RVSP at 75 mmHg -Troponins were normal -Continue to monitor in PCU with telemetry, will hold metoprolol and Lasix at the moment -Digoxin level is low, continue with Lipitor -INR is 3.7 admission we will continue to monitor daily 2. Chronic hypoxic respiratory failure -She is on her baseline oxygen use of 2 L nasal cannula -We will continue with her home aerosols 3. IDDM 2 -Blood glucose is 211 -We will continue with her home insulin dose and monitor blood sugars before meals at bedtime 4. Leukocytosis -Unsure as to the etiology is likely reactive secondary to CPR and emesis -WBC has increased to 18, she remains afebrile -Given her nausea and her repeated vomiting could be viral gastritis DVT: Coumadin Code Visit OBSV E&M: [id number] Subsequent observation care L2
[2019-01-13] MEDS: Ondansetron 4 MG/2 ML Vial IV (08:28)
[2019-01-13] MEDS: 0.9% NaCl Peripheral Flush Adult/Peds IV (08:28)
[2019-01-13] MEDS: Digoxin 125 MCG Tablet PO (09:35)
[2019-01-13] MEDS: 0.9% Normal Saline 1,000 ML 75 ML IV (09:36)
--- NOTE | 2019-01-13 11:05 | PCM.CONS.C ---
Problem List (1) Loss of consciousness Status: Acute Reason for Consult Date of Consultation: 01/13/19 History of Present Illness: The patient is a 73 year old F with past medical history significant for valvular heart disease status post mitral valve replacement surgery in the year 2003. She also has history of coronary artery disease with percutaneous intervention in the year 1999 and coronary artery bypass graft surgery in 2003. Patient also has history of chronic atrial fibrillation and oxygen dependent COPD. [facility] is a [facility]. She has been admitted to the hospital after getting [facility] the [facility] with cardiac arrest. According to information available, the patient felt weak yesterday. She had been nauseous and vomited a few times. She was assisted to the bathroom for her vomiting. As she was getting back in her wheelchair, she told the veterinary assistant that she was getting nauseous again. At that time she slumped in the chair and per the [facility], she was ashen and tineo and turning blue. She was eased to the floor. Per the [facility] staff, they could not feel a pulse and therefore CPR was instituted. It appears that she received a total of 4 chest compressions before waking up spontaneously. According to the patient, she told the [facility] to stop doing the compressions as her chest hurt with it. Patient has been asymptomatic since. She denies any chest pain or pressure prior to her syncopal episode. No chest pain or pressure after she woke up except what she felt with the compressions. She has severe COPD and according to her, she is always short of breath. Patient denies any palpitations. No previous history of syncope or presyncope. [] Past Medical History Allergies/Adverse Reactions: Allergies levofloxacin [From Levaquin] Allergy (Verified 01/12/19 14:43) Hives morphine Allergy (Verified 01/12/19 14:43) Shortness of breath Iodinated Contrast- Oral and IV Dye [CONTRASTS] Adverse Reaction (Verified 01/12/19 14:43) Swelling Home Medications: Ambulatory Orders Medication Instructions Recorded Atorvastatin Calcium [Lipitor] 80 mg PO QHS 12/18/18 Cholecalciferol (VIT D3) [Vitamin 1,000 unit PO DAILY 12/18/18 D3] Digoxin [Digox] 125 mcg PO DAILY 12/18/18 Fluticasone/Vilanterol [Breo 1 each IH DAILY 12/18/18 Ellipta 100-25 Mcg INH] Furosemide [Lasix] 40 mg PO DAILY 12/18/18 Metoprolol Tartrate [Lopressor 50 mg PO DAILY 12/18/18 (beta mable)] Acetaminophen [Tylenol Tablet] 650 mg PO Q6H PRN PRN tablet 12/22/18 Guaifenesin [Robitussin] 10 ml PO Q4H PRN PRN udc 12/22/18 Insulin Glargine [Lantus SoloStar 40 units SC QHS 01/12/19 Pen] Insulin Lispro [Humalog KwikPen] See Protocol SC ACHS 01/12/19 Ipratropium/Albuterol Sulfate 3 ml INHALATION TID 01/12/19 [Duoneb] Losartan Potassium [Cozaar] 25 mg PO DAILY 01/12/19 Potassium Chloride [K-Dur] 20 meq PO DAILY 01/12/19 Warfarin [Coumadin] 3 mg PO DAILY@1700 01/12/19 Past Medical History (Chronic Problems): Chronic Problems Chronic respiratory failure with hypoxia, on home O2 therapy (Chronic) Type 2 diabetes mellitus (Chronic) History of mitral valve replacement with mechanical valve (Chronic) Chronic anticoagulation (Chronic) DUE TO MECHANICAL MITRAL VALVE- KEEP INR BETWEEN 2.5 AND 3.5 Pulmonary hypertension, moderate to severe (Chronic) DJD (degenerative joint disease), lumbar (Chronic) COPD (chronic obstructive pulmonary disease) (Chronic) Surgical History: - - Coronary stents; valvular replacements. - *Family History Maternal History Items: Heart Disease Paternal History Items: Heart Disease Smoking Status: Former smoker Tobacco Use: Cigarettes Alcohol: None Drugs: None Review of Systems - Review of Systems General: Denies: Fever, Chills HEENT: Denies: Head Aches Cardiovascular: Reports: Shortness of Breath, Shortness of Breath at Rest, Shortness of Breath with Exertion, PND. Denies: Chest Discomfort, Orthopnea, Peripheral Edema, Palpitations Gastrointestinal: Reports: Nausea, Emesis. Denies: Abdominal Discomfort Neurological: Denies: History of TIA, History of CVA Hematologic/ Lymphatic: Denies: Easy Brusing, Easy Bleeding Subjectve: Appears mildly short of breath. Objective: Vital Signs Temp Pulse Resp BP Pulse Ox 97.6 F L 89 18 106/56 L 94 01/13/19 09:30 01/13/19 09:35 01/13/19 09:30 01/13/19 09:30 01/13/19 09:30 Oxygen Flow Rate (L/min) 2 Oxygen Delivery Method Nasal Cannula Weight: 101.2 kg Body Mass Index (BMI) 37.1 Orthostatic Vital Signs Start: 01/12/19 22:31 Freq: q24h Status: Active Protocol: Activity Type Activity Date Activity User E-Sign Co-Sign Detail Recorded Client Recorded Date Recorded By Document 01/12/19 20:45 [facility] [id number] 01/12/19 22:32 [facility] 01/12/19 20:45 Orthostatic Vitals Standing -Blood Pressure (90/60-120/80 mm Hg) 128/63 H -Extremity Use Right Arm -Pulse Rate (60-100 beats/min) 63 Sitting -Blood Pressure (90/60-120/80 mm Hg) 104/57 L -Extremity Use Right Arm -Pulse Rate (60-100 beats/min) 57 L Lying -Blood Pressure (90/60-120/80 mm Hg) 114/50 L -Extremity Use Right Arm -Pulse Rate (60-100 beats/min) 53 L Intake and Output for Last 24 Hours 01/11/19 01/12/19 01/13/19 23:59 23:59 23:59 Intake Total 771 / 771 Output Total 230 / 230 Balance 541 / 541 General: Awake, Alert, Oriented x 3, No Acute Distress HEENT: Atraumatic, Normocephalic Oral: Moist Mucosa Neck: Supple, No JVD Lungs: Clear to auscultation, - - Decreased air entry bilaterally Cardiovascular: Irregular Rhythm, Normal S2, [place] Prosthetic S1 Abdomen: Bowel Sounds Present, Soft Extremities: - - Trace bilateral edema Neurological: No Focal Motor or Sensory Deficit Psych/Mental Status: Appropriate 01/12/19 15:25: PT 37.2 H, INR 3.7 H* 01/12/19 15:25: Sodium 137, Potassium 4.0, Chloride 104, Carbon Dioxide 26.0, Anion Gap 7, BUN 14, Creatinine 1.40 H, Est GFR (MDRD) Af Amer 48 L, Est GFR (MDRD) Non-Af 39 L, BUN/Creatinine Ratio 10.0, Glucose 211 H, Calcium 8.2 L, Troponin I 0.025 01/12/19 15:25: Digoxin 0.79 L 01/12/19 16:25: WBC 15.8 H, RBC 4.23, Hgb 11.1 L, Hct 36.6 L, MCV 86.5, MCH 26.2 L, MCHC 30.3 L, RDW 18.5 H, RDW Differential 58.7 H, Plt Count 258, MPV 11.9, Immature Gran % (Auto) 0.300, Neut % (Auto) 85.7 H, Lymph % (Auto) 7.9 L, [place] % (Auto) 4.6, Eos % (Auto) 1.3, Baso % (Auto) 0.2, Absolute Neuts (auto) 13.6 H, Total Counted Not Reportable 01/12/19 23:00: Urine Color Yellow, Urine Clarity Clear, Urine pH 5.0, Ur Specific [place] 1.020, Urine Protein 30 H, Urine Glucose (UA) Normal, Urine Ketones 5 H, Urine Occult Blood Negative, Urine Nitrite Negative, Urine Bilirubin Negative, Urine Urobilinogen Normal, Ur Leukocyte Esterase 25 H, Urine RBC 0 SEEN, Urine WBC 0 SEEN 01/13/19 00:42: Troponin I < 0.015 01/13/19 03:30: WBC 18.0 H, RBC 4.03 L, Hgb 10.8 L, Hct 34.7 L, MCV 86.1, MCH 26.8 L, MCHC 31.1 L, RDW 18.3 H, RDW Differential 57.9 H, Plt Count 253, MPV 11.4, Immature Gran % (Auto) 0.300, Neut % (Auto) 88.6 H, Lymph % (Auto) 6.0 L, [place] % (Auto) 4.8, Eos % (Auto) 0.2, Baso % (Auto) 0.1, Absolute Neuts (auto) 16.0 H, Total Counted Not Reportable 01/13/19 03:30: Sodium 137, Potassium 3.7, Chloride 105, Carbon Dioxide 22.0, Anion Gap 10, BUN 14, Creatinine 1.19 H, Est GFR (MDRD) Af Amer 57 L, Est GFR (MDRD) Non-Af 47 L, BUN/Creatinine Ratio 11.8, Glucose 180 H, Calcium 8.0 L 01/13/19 03:30: PT 34.1 H, INR 3.3 01/13/19 03:30: Troponin I 0.015 Rhythm: Atrial fibrillation with controlled ventricular response EKG: Atrial fibrillation with controlled ventricular response. Nonspecific ST-T changes ECHO: Echocardiogram earlier this month showed preserved systolic ejection fraction at 55%. Prosthetic mitral valve reported as functioning normally Stress Test: Cardiac Cath: PCI: CT Surgery: Holter monitor: EPS: PPM: CXR: Chest CT Scan: Assessment/Plan 1. Syncope/ ?cardiac arrest. I think the patient probably had vasovagal/vasodepressor syncope. However the [facility] reports cardiac arrest. The patient's EF on echocardiogram done earlier this month was normal. Her troponins have been negative this admission. She is atrial fibrillation on her EKG with a slow ventricular response. Agree with holding metoprolol for now. I would recommend discontinuing the digoxin and when the ventricular rate recovers, then probably start her on a lower dose of metoprolol. I recommend that the patient be evaluated by EP for her syncope/? Cardiac arrest. I discussed with the EP doctor at [facility]. They have agreed to accept her and will evaluate her for further recommendations. 2. History of coronary artery disease. Stable. Troponins have been negative. 3. History of advanced COPD. 4. History of mitral valvular disease status post valve replacement surgery with prosthetic mitral valve. Anticoagulated with warfarin. INR therapeutic. Further recommendations as per EP at [facility]. Transfer to the [facility].
--- NOTE | 2019-01-13 11:14 | CON.PCM_ITS ---
Problem List (1) Loss of consciousness Status: Acute Reason for Consult Date of Consultation: 01/13/19 History of Present Illness: The patient is a 73 year old F with past medical history significant for valvular heart disease status post mitral valve replacement surgery in the year 2003. She also has history of coronary artery disease with percutaneous intervention in the year 1999 and coronary artery bypass graft surgery in 2003. Patient also has history of chronic atrial fibrillation and oxygen dependent COPD. [facility] is a [facility] resident. She has been admitted to the hospital after getting [facility] from the [facility] with cardiac arrest. According to information available, the patient felt weak yesterday. She had been nauseous and vomited a few times. She was assisted to the bathroom for her vomiting. As she was getting back in her wheelchair, she told the hair or beauty salon assistant that she was getting nauseous again. At that time she slumped in the chair and per the [facility], she was ashen and tineo and turning blue. She was eased to the floor. Per the [facility] staff, they could not feel a pulse and therefore CPR was instituted. It appears that she received a total of 4 chest compressions before waking up spontaneously. According to the patient, she told the [facility] to stop doing the compressions as her chest hurt with it. Patient has been asymptomatic since. She denies any chest pain or pressure prio r to her syncopal episode. No chest pain or pressure after she woke up except what she felt with the compressions. She has severe COPD and according to her, she is always short of breath. Patient denies any palpitations. No previous history of syncope or presyncope. [] Past Medical History Allergies/Adverse Reactions: Allergies levofloxacin [From Levaquin] Allergy (Verified 01/12/19 14:43) Hives morphine Allergy (Verified 01/12/19 14:43) Shortness of breath Iodinated Contrast- Oral and IV Dye [CONTRASTS] Adverse Reaction (Verified 0 01/12/19 14:43) Swelling Home Medications: Ambulatory Orders Medication Instructions Recorded Atorvastatin Calcium [Lipitor] 80 mg PO QHS 12/18/18 Cholecalciferol (VIT D3) [Vitamin 1,000 unit PO DAILY 12/18/18 D3] Digoxin [Digox] 125 mcg PO DAILY 12/18/18 Fluticasone/Vilanterol [Breo 1 each IH DAILY 12/18/18 Ellipta 100-25 Mcg INH] Furosemide [Lasix] 40 mg PO DAILY 12/18/18 Metoprolol Tartrate [Lopressor 50 mg PO DAILY 12/18/18 (beta mable)] Acetaminophen [Tylenol Tablet] 650 mg PO Q6H PRN PRN tablet 12/22/18 Guaifenesin [Robitussin] 10 ml PO Q4H PRN PRN udc 12/22/18 Insulin Glargine [Lantus SoloStar 40 units SC QHS 01/12/19 Pen] Insulin Lispro [Humalog KwikPen] See Protocol SC ACHS 01/12/19 Ipratropium/Albuterol Sulfate 3 ml INHALATION TID 01/12/19 [Duoneb] Losartan Potassium [Cozaar] 25 mg PO DAILY 01/12/19 Potassium Chloride [K-Dur] 20 meq PO DAILY 01/12/19 Warfarin [Coumadin] 3 mg PO DAILY@1700 01/12/19 Past Medical History (Chronic Problems): Chronic Problems Chronic respiratory failure with hypoxia, on home O2 therapy (Chronic) Type 2 diabetes mellitus (Chronic) History of mitral valve replacement with mechanical valve (Chronic) Chronic anticoagulation (Chronic) DUE TO MECHANICAL MITRAL VALVE- KEEP INR BETWEEN 2.5 AND 3.5 Pulmonary hypertension, moderate to severe (Chronic) DJD (degenerative joint disease), lumbar (Chronic) COPD (chronic obstructive pulmonary disease) (Chronic) Surgical History: - - Coronary stents; valvular replacements. - *Family History Maternal History Items: Heart Disease Paternal History Items: Heart Disease Smoking Status: Former smoker Tobacco Use: Cigarettes Alcohol: None Drugs: None Review of Systems - Review of Systems General: Denies: Fever, Chills HEENT: Denies: Head Aches Cardiovascular: Reports: Shortness of Breath, Shortness of Breath at Rest, Shortness of Breath with Exertion, PND. Denies: Chest Discomfort, Orthopnea, Peripheral Edema, Palpitations Gastrointestinal: Reports: Nausea, Emesis. Denies: Abdominal Discomfort Neurological: Denies: History of TIA, History of CVA Hematologic/ Lymphatic: Denies: Easy Brusing, Easy Bleeding Subjectve: Appears mildly short of breath. Objective: Vital Signs Temp Pulse Resp BP Pulse Ox 97.6 F L 89 18 106/56 L 94 01/13/19 09:30 01/13/19 09:35 01/13/19 09:30 01/13/19 09:30 01/13/19 09:30 Oxygen Flow Rate (L/min) 2 Oxygen Delivery Method Nasal Cannula Weight: 101.2 kg Body Mass Index (BMI) 37.1 Orthostatic Vital Signs Start: 01/12/19 22:31 Freq: q24h Status: Active Protocol: Activity Type Activity Date Activity User E-Sign Co-Sign Detail Recorded Client Recorded Date Recorded By Document 01/12/19 20:45 [facility] [id number] 01/12/19 22:32 [facility] 01/12/19 20:45 Orthostatic Vitals Standing -Blood Pressure (90/60-120/80 mm Hg) 128/63 H -Extremity Use Right Arm -Pulse Rate (60-100 beats/min) 63 Sitting -Blood Pressure (90/60-120/80 mm Hg) 104/57 L -Extremity Use Right Arm -Pulse Rate (60-100 beats/min) 57 L Lying -Blood Pressure (90/60-120/80 mm Hg) 114/50 L -Extremity Use Right Arm -Pulse Rate (60-100 beats/min) 53 L Intake and Output for Last 24 Hours 01/11/19 01/12/19 01/13/19 23:59 23:59 23:59 Intake Total 771 / 771 Output Total 230 / 230 Balance 541 / 541 General: Awake, Alert, Oriented x 3, No Acute Distress HEENT: Atraumatic, Normocephalic Oral: Moist Mucosa Neck: Supple, No JVD Lungs: Clear to auscultation, - - Decreased air entry bilaterally Cardiovascular: Irregular Rhythm, Normal S2, [place] Prosthetic S1 Abdomen: Bowel Sounds Present, Soft Extremities: - - Trace bilateral edema Neurological: No Focal Motor or Sensory Deficit Psych/Mental Status: Appropriate 01/12/19 15:25: PT 37.2 H, INR 3.7 H* 01/12/19 15:25: Sodium 137, Potassium 4.0, Chloride 104, Carbon Dioxide 26.0, Anion Gap 7, BUN 14, Creatinine 1.40 H, Est GFR (MDRD) Af Amer 48 L, Est GFR (MDRD) Non-Af 39 L, BUN/Creatinine Ratio 10.0, Glucose 211 H, Calcium 8.2 L, Troponin I 0.025 01/12/19 15:25: Digoxin 0.79 L 05/26/19 16:25: WBC 15.8 H, RBC 4.23, Hgb 11.1 L, Hct 36.6 L, MCV 86.5, MCH 26.2 L, MCHC 30.3 L, RDW 18.5 H, RDW Differential 58.7 H, Plt Count 258, MPV 11.9, Immature Gran % (Auto) 0.300, Neut % (Auto) 85.7 H, Lymph % (Auto) 7.9 L, [place] % (Auto) 4.6, Eos % (Auto) 1.3, Baso % (Auto) 0.2, Absolute Neuts (auto) 13.6 H, Total Counted Not Reportable 01/12/19 23:00: Urine Color Yellow, Urine Clarity Clear, Urine pH 5.0, Ur Specific [place] 1.020, Urine Protein 30 H, Urine Glucose (UA) Normal, Urine Ketones 5 H, Urine Occult Blood Negative, Urine Nitrite Negative, Urine Bilirubin Negative, Urine Urobilinogen Normal, Ur Leukocyte Esterase 25 H, Urine RBC 0 SEEN, Urine WBC 0 SEEN 01/13/19 00:42: Troponin I < 0.015 01/13/19 03:30: WBC 18.0 H, RBC 4.03 L, Hgb 10.8 L, Hct 34.7 L, MCV 86.1, MCH 26.8 L, MCHC 31.1 L, RDW 18.3 H, RDW Differential 57.9 H, Plt Count 253, MPV 11.4, Immature Gran % (Auto) 0.300, Neut % (Auto) 88.6 H, Lymph % (Auto) 6.0 L, [place] % (Auto) 4.8, Eos % (Auto) 0.2, Baso % (Auto) 0.1, Absolute Neuts (auto) 16.0 H, Total Counted Not Reportable 01/13/19 03:30: Sodium 137, Potassium 3.7, Chloride 105, Carbon Dioxide 22.0, Anion Gap 10, BUN 14, Creatinine 1.19 H, Est GFR (MDRD) Af Amer 57 L, Est GFR (MDRD) Non-Af 47 L, BUN/Creatinine Ratio 11.8, Glucose 180 H, Calcium 8.0 L 01/13/19 03:30: PT 34.1 H, INR 3.3 01/13/19 03:30: Troponin I 0.015 Rhythm: Atrial fibrillation with controlled ventricular response EKG: Atrial fibrillation with controlled ventricular response. Nonspecific ST-T changes ECHO: Echocardiogram earlier this month showed preserved systolic ejection fraction at 55%. Prosthetic mitral valve reported as functioning normally Stress Test: Cardiac Cath: PCI: CT Surgery: Holter monitor: EPS: PPM: CXR: Chest CT Scan: Assessment/Plan 1. Syncope/ ?cardiac arrest. I think the patient probably had vasovagal/vasodepressor syncope. However the [facility] reports cardiac arrest. The patient's EF on echocardiogram done earlier this month was normal. Her troponins have been negative this admission. She is atrial fibrillation on her EKG with a slow ventricular response. Agree with holding metoprolol for now. I would recommend discontinuing the digoxin and when the ventricular rate recovers, then probably start her on a lower dose of metoprolol. I recommend that the patient be evaluated by EP for her syncope/? Cardiac arrest. I discussed with the EP doctor at [facility]. They have agreed to accept her and will evaluate her for further recommendations. 2. History of coronary artery disease. Stable. Troponins have been negative. 3. History of advanced COPD. 4. History of mitral valvular disease status post valve replacement surgery with prosthetic mitral valve. Anticoagulated with warfarin. INR therapeutic. Further recommendations as per EP at [facility]. Transfer to the [facility].
[2019-01-13] MEDS: Insulin Lispro 100 UNIT/ML INSULN.PEN SC (11:17)
[2019-01-13 11:30] LABS: Bedside Glucose 190 mg/dL (70-110)
--- NOTE | 2019-01-13 11:45 | DS.PCM_ITS ---
Discharge Date and Diagnosis - Problem List Patient Problems: Active and Suspected Problems Loss of consciousness (Acute) Date of Admission: 01/12/19 Date of Discharge: 01/13/19 - Primary Discharge Diagnosis Active and Suspected Problems Loss of consciousness (Acute) - Secondary Discharge Diagnosis Chronic Problems Chronic respiratory failure with hypoxia, on home O2 therapy (Chronic) Type 2 diabetes mellitus (Chronic) History of mitral valve replacement with mechanical valve (Chronic) Chronic anticoagulation (Chronic) DUE TO MECHANICAL MITRAL VALVE- KEEP INR BETWEEN 2.5 AND 3.5 Pulmonary hypertension, moderate to severe (Chronic) DJD (degenerative joint disease), lumbar (Chronic) COPD (chronic obstructive pulmonary disease) (Chronic) Hospital Course and Treatment Imaging Results: CXR: IMPRESSION: Stable, nonacute portable x-ray examination of the chest. Consults: Cardiology Operations: None Procedures: None Summary of Care Provided: Per HPI: The patient is a 73 year old F with PMH as below who [facility]. She states that she was recently started on a water pill and had to get up to urinate this afternoon and when she was on the toilet she felt nauseated and started throwing up so they gave her a bucket to throw up into and when she was ready to get up to go back to bed as they were helping her up from the toilet she blacked out and was lowered to the ground. She states that she was told she had asystole and they started CPR on her though there is no mason or bruising on her chest. And she is perfectly alert and oriented and denies any residual symptoms. She was recently admitted in the hospital with shortness of breath, and had an echocardiogram which demonstrated a normal EF but because of her A. fib they could not evaluate her diastolic function and she was felt to have diastolic heart failure. In the ER her EKG was unremarkable with signs of a flutter though her heart rate was normal and her lab work was remarkable for a leukocytosis of 15.8 and an INR of 3.7 though since she has a mitral valve replacement her Coumadin range is 2.5-3.5. Hospital Course: 1. Vasovagal syncope with possible cardiac arrest necessitating CPR/CAD status post stents/mitral valve replacement/diastolic CHF/A. fib -Per report from the halfway she was not feeling well this morning and in the afternoon she dropped her pressures into the 80s which is when she became nauseated and threw up at which point they were wheeling her out of the bathroom when she felt she needed to throw up again and by the time the nurse turned around with the bucket she was not breathing, tineo in the face, and was turning blue. They called for help and the nurse who came in could not feel a pulse or hear breath sounds and they started CPR. She says that she did 4 rounds of CPR before Ms. Allen woke up and reminded the staff that her 4 weeks earlier. -We will consult cardiology for medication management with her pulmonary hypertension and her diastolic heart failure. Cardiology felt that she given her a rest for the report of her arrest she would need to have an electrophysiology evaluation. And since she had a reported cardiac arrest that this should be done as an inpatient. Therefore he contacted cardiology in [place] who accepted the patient in transfer. -She had an echo early December with an EF of 55 to 60%, unknown diastolic function, severe pulmonary hypertension with RVSP at 75 mmHg -Troponins were normal -Continue to monitor in PCU with telemetry, will hold metoprolol and Lasix at the moment -Digoxin level is low, continue with Lipitor -INR is 3.7 admission, 3.3 on discharge 2. Chronic hypoxic respiratory failure -She is on her baseline oxygen use of 2 L nasal cannula -We will continue with her home aerosols 3. IDDM 2 -Blood glucose is 211 -We will continue with her home insulin dose and monitor blood sugars before meals at bedtime 4. Leukocytosis -Unsure as to the etiology is likely reactive secondary to CPR and emesis -WBC has increased to 18, she remains afebrile -Given her nausea and her repeated vomiting could be viral gastritis Patient Problems: Active and Suspected Problems Loss of consciousness (Acute) - Physical Exam Vital Signs Temp Pulse Resp BP Pulse Ox 97.6 F L 89 18 106/56 L 94 01/13/19 09:30 01/13/19 09:35 01/13/19 09:30 01/13/19 09:30 01/13/19 09:30 Oxygen Flow Rate (L/min) 3 Oxygen Delivery Method Nasal Cannula Weight: 223 lb 1.725 oz Body Mass Index (BMI) 37.1 Orthostatic Vital Signs Start: 01/12/19 22:31 Freq: q24h Status: Active Protocol: Activity Type Activity Date Activity User E-Sign Co-Sign Detail Recorded Client Recorded Date Recorded By Document 01/12/19 20:45 [facility] [id number] 01/12/19 22:32 [facility] 01/12/19 20:45 Orthostatic Vitals Standing -Blood Pressure (90/60-120/80) 128/63 H -Extremity Use Right Arm -Pulse Rate (60-100) 63 Sitting -Blood Pressure (90/60-120/80) 104/57 L -Extremity Use Right Arm -Pulse Rate (60-100) 57 L Lying -Blood Pressure (90/60-120/80) 114/50 L -Extremity Use Right Arm -Pulse Rate (60-100) 53 L Intake and Output for Last 24 Hours 01/11/19 01/12/19 01/13/19 23:59 23:59 23:59 Intake Total 771 / 771 Output Total 230 / 230 Balance 541 / 541 Laboratory Tests Past 24 Hrs 01/12/19 01/12/19 01/12/19 15:25 15:25 15:25 WBC RBC Hgb Hct MCV MCH MCHC RDW RDW Differential Plt Count MPV Immature Gran % (Auto) Neut % (Auto) Lymph % (Auto) [place] % (Auto) Eos % (Auto) Baso % (Auto) Absolute Neuts (auto) Absolute Lymphs (auto) Total Counted Differential Comment PT 37.2 H INR 3.7 H* Sodium 137 Potassium 4.0 Chloride 104 Carbon Dioxide 26.0 Anion Gap 7 BUN 14 Creatinine 1.40 H Estim Creat Clear Calc 31.83 Est GFR (MDRD) Af Amer 48 L Est GFR (MDRD) Non-Af 39 L BUN/Creatinine Ratio 10.0 Glucose 211 H Calcium 8.2 L Troponin I 0.025 Urine Color Urine Clarity Urine pH Ur Specific Marine Urine Protein Urine Glucose (UA) Urine Ketones Urine Occult Blood Urine Nitrite Urine Bilirubin Urine Urobilinogen Ur Leukocyte Esterase Urine RBC Urine WBC Ur Squamous Epith Cells Urine Bacteria Urine Mucus Digoxin 0.79 L 01/12/19 01/12/19 01/13/19 16:25 23:00 00:42 WBC 15.8 H RBC 4.23 Hgb 11.1 L Hct 36.6 L MCV 86.5 MCH 26.2 L MCHC 30.3 L RDW 18.5 H RDW Differential 58.7 H Plt Count 258 MPV 11.9 Immature Gran % (Auto) 0.300 Neut % (Auto) 85.7 H Lymph % (Auto) 7.9 L [place] % (Auto) 4.6 Eos % (Auto) 1.3 Baso % (Auto) 0.2 Absolute Neuts (auto) 13.6 H Absolute Lymphs (auto) 1.25 Total Counted Not Reportable Differential Comment SCANNED PT INR Sodium Potassium Chloride Carbon Dioxide Anion Gap BUN Creatinine Estim Creat Clear Calc Est GFR (MDRD) Af Amer Est GFR (MDRD) Non-Af BUN/Creatinine Ratio Glucose Calcium Troponin I < 0.015 Urine Color Yellow Urine Clarity Clear Urine pH 5.0 Ur Specific Marine 1.020 Urine Protein 30 H Urine Glucose (UA) Normal Urine Ketones 5 H Urine Occult Blood Negative Urine Nitrite Negative Urine Bilirubin Negative Urine Urobilinogen Normal Ur Leukocyte Esterase 25 H Urine RBC 0 SEEN Urine WBC 0 SEEN Ur Squamous Epith Cells 0 SEEN Urine Bacteria 0 SEEN Urine Mucus 0 SEEN Digoxin 01/13/19 01/13/19 01/13/19 03:30 03:30 03:30 WBC 18.0 H RBC 4.03 L Hgb 10.8 L Hct 34.7 L MCV 86.1 MCH 26.8 L MCHC 31.1 L RDW 18.3 H RDW Differential 57.9 H Plt Count 253 MPV 11.4 Immature Gran % (Auto) 0.300 Neut % (Auto) 88.6 H Lymph % (Auto) 6.0 L [place] % (Auto) 4.8 Eos % (Auto) 0.2 Baso % (Auto) 0.1 Absolute Neuts (auto) 16.0 H Absolute Lymphs (auto) 1.08 Total Counted Not Reportable Differential Comment PT 34.1 H INR 3.3 Sodium 137 Potassium 3.7 Chloride 105 Carbon Dioxide 22.0 Anion Gap 10 BUN 14 Creatinine 1.19 H Estim Creat Clear Calc 39.02 Est GFR (MDRD) Af Amer 57 L Est GFR (MDRD) Non-Af 47 L BUN/Creatinine Ratio 11.8 Glucose 180 H Calcium 8.0 L Troponin I Urine Color Urine Clarity Urine pH Ur Specific Marine Urine Protein Urine Glucose (UA) Urine Ketones Urine Occult Blood Urine Nitrite Urine Bilirubin Urine Urobilinogen Ur Leukocyte Esterase Urine RBC Urine WBC Ur Squamous Epith Cells Urine Bacteria Urine Mucus Digoxin 01/13/19 03:30 WBC RBC Hgb Hct MCV MCH MCHC RDW RDW Differential Plt Count MPV Immature Gran % (Auto) Neut % (Auto) Lymph % (Auto) [place] % (Auto) Eos % (Auto) Baso % (Auto) Absolute Neuts (auto) Absolute Lymphs (auto) Total Counted Differential Comment PT INR Sodium Potassium Chloride Carbon Dioxide Anion Gap BUN Creatinine Estim Creat Clear Calc Est GFR (MDRD) Af Amer Est GFR (MDRD) Non-Af BUN/Creatinine Ratio Glucose Calcium Troponin I 0.015 Urine Color Urine Clarity Urine pH Ur Specific Marine Urine Protein Urine Glucose (UA) Urine Ketones Urine Occult Blood Urine Nitrite Urine Bilirubin Urine Urobilinogen Ur Leukocyte Esterase Urine RBC Urine WBC Ur Squamous Epith Cells Urine Bacteria Urine Mucus Digoxin POC Glucose 01/13/19 01/13/19 01/12/19 11:15 06:54 21:34 POC Glucose 190 H 142 H 233 H Home Medications: Medications to take at Discharge Atorvastatin Calcium [Lipitor] 80 mg PO QHS 12/18/18 Cholecalciferol (VIT D3) [Vitamin D3] 1,000 unit PO DAILY 12/18/18 Digoxin [Digox] 125 mcg PO DAILY 12/18/18 Fluticasone/Vilanterol [Breo Ellipta 100-25 Mcg INH] 1 each IH DAILY 12/18/18 Furosemide [Lasix] 40 mg PO DAILY 12/18/18 Metoprolol Tartrate [Lopressor (beta mable)] 50 mg PO DAILY 12/18/18 Acetaminophen [Tylenol Tablet] 650 mg PO Q6H PRN PRN tablet 12/22/18 Guaifenesin [Robitussin] 10 ml PO Q4H PRN PRN udc 12/22/18 Insulin Glargine [Lantus SoloStar Pen] 40 units SC QHS 01/12/19 Insulin Lispro [Humalog KwikPen] See Protocol SC ACHS 01/12/19 Ipratropium/Albuterol Sulfate [Duoneb] 3 ml INHALATION TID 01/12/19 Losartan Potassium [Cozaar] 25 mg PO DAILY 01/12/19 Potassium Chloride [K-Dur] 20 meq PO DAILY 01/12/19 Warfarin [Coumadin] 3 mg PO DAILY@1700 01/12/19 Primary Care Physician: Veto Stanley MD [Primary Care Provider] - Please follow up with your Primary Care Physician in: 3-5 days Disposition: Acute care Hospital Minutes spent on discharge:: 35 Patient Condition:: Stable Medical Necessity - Tobacco Use Smoking Status: Former smoker Tobacco Use: Cigarettes Meaningful Use Info Meaningful Use Diagnoses (Choose all that apply): None applicable Code Visit OBSV E&M: 39437 Observation care discharge
--- NOTE | 2019-01-13 13:22 | NURSING ---
This RN talked to pt's niece, Jo Ann and daughter Viki, concerning her mother's transfer to [facility]. Pt and family would like pt transfered to [facility] instead, because they're more familiar with this hospital. Dr. Booker is aware. Family called back in to give admitting doctors name and phone number to this RN. This RN gave this information to Dr. Freeman.
--- NOTE | 2019-01-13 14:35 | NURSING ---
This RN called and gave report to MONTSE Stone at [facility].
--- NOTE | 2019-01-13 14:43 | NURSING ---
This RN called the pt's daughter, Viki and niece, Jo Ann to inform them that transport will be picking the pt up at 1530 to take the pt to [facility].
== END 2019-01-13 11:40 | disposition short-term general hospital (02) ==
LOC: ED 16:10 → PCU 18:11
PROVIDERS: Internal Medicine; Admitting Provider Family Medicine; Emergency Provider Emergency Medicine; Family Provider Family Medicine; PCP Family Medicine; Visit Provider Family Medicine
DX: R55 Syncope and collapse (principal); J96.11 Chronic respiratory failure with hypoxia; E11.9 Type 2 diabetes mellitus without complications; J44.9 Chronic obstructive pulmonary disease, unspecified; I27.20 Pulmonary hypertension, unspecified; M47.896 Other spondylosis, lumbar region; I48.91 Unspecified atrial fibrillation; I50.9 Heart failure, unspecified; I50.30 Unspecified diastolic (congestive) heart failure; D72.829 Elevated white blood cell count, unspecified; Z87.891 Personal history of nicotine dependence; Z79.899 Other long term (current) drug therapy; Z99.81 Dependence on supplemental oxygen; Z95.2 Presence of prosthetic heart valve; Z79.01 Long term (current) use of anticoagulants; Z79.4 Long term (current) use of insulin; Z79.51 Long term (current) use of inhaled steroids
CPT/HCPCS: 36415; 71045; 80048; 80162; 81001; 82962; 84484; 85025; 85610; 87086; 93005; 94640; 96360; 96361; 97161; 97165; 97802; 99218; 99285; J7030; J7040; A4216; G0378; J2405

== ENCOUNTER → 2019-03-18 12:18 | Outpatient (CLI) | payer MEDICARE, OTHER, MEDICAID, SELFPAY ==
[2019-02-24 13:16] VITALS: BMI 35.7
[2019-03-06 14:50] VITALS: BMI 38.0
[2019-03-18 12:30] VITALS: PULSE 102; PULSE 109; PULSE 118; PULSE 119; PULSE 74; PULSE 86; PULSE 97; O2SAT 83; O2SAT 87; O2SAT 89; O2SAT 91; O2SAT 93; O2SAT 94; O2SAT 98
--- NOTE | 2019-03-18 12:30 | CPS ---
Pt arrived on 3L nasal cannula via wheelchair. SPO2 on 3L continuous flow was 98%. Pt was then taken off of her oxygen and her SPO2 on room air at rest was 94%. Walk was performed without any walking assist devices. At the two minute check pt was 83% on Room air and was placed on 3L. Pt recovered to 94%. Pt then was increased to 4L at minute 4 due to SPO2 of 87%. Pt recovered to 97%. The rest of the test was performed on 4L and pt tolerated well.
--- NOTE | 2019-03-19 08:05 | PCM.PSN.6M ---
PSN 6 Minute Walk Test - 6 Minute Walk Test 6 Minute Walk Test: 6 Minute Walk Test PSN:6-Minute Walk Test Start: 03/18/19 14:12 Freq: Status: Active Protocol: [id number] Document 03/18/19 12:30 [facility] (Rec: 03/18/19 14:18 [facility] [id number]) 6 Minute Walk Test Date Performed 03/18/19 Time Performed 12:30 Height 5 ft 4 in Weight: 214 lb Weight in Pounds 214.[address]: Raji Garza Assistive device used: None Pre-test Oxygen Delivery Method Room Air Pulse Ox (%) 94 Pulse Rate (60-100 beats/min) 86 Dyspnea Kelly Scale (0-10) 2 Exertion Kelly Scale (6-20) 6 1st minute Oxygen Delivery Method Room Air Pulse Ox (%) 91 Pulse Rate (60-100 beats/min) 102 H Number of Rests Taken 0 2nd minute Oxygen Delivery Method Room Air Pulse Ox (%) 83 Pulse Rate (60-100 beats/min) 119 H Number of Rests Taken 0 Reported Symptoms Increased Work of Breathing 3rd minute Oxygen Flow Rate (L/min) (L/min) 3 Oxygen Delivery Method Nasal Cannula Pulse Ox (%) 93 Pulse Rate (60-100 beats/min) 109 H Number of Rests Taken 0 4th minute Oxygen Flow Rate (L/min) (L/min) 3 Oxygen Delivery Method Nasal Cannula Pulse Ox (%) 87 Pulse Rate (60-100 beats/min) 118 H Number of Rests Taken 0 5th minute Oxygen Flow Rate (L/min) (L/min) 4 Oxygen Delivery Method Nasal Cannula Pulse Ox (%) 93 Pulse Rate (60-100 beats/min) 74 Number of Rests Taken 1 6th minute Oxygen Flow Rate (L/min) (L/min) 4 Oxygen Delivery Method Nasal Cannula Pulse Ox (%) 89 Pulse Rate (60-100 beats/min) 102 H Number of Rests Taken 0 Post-test Oxygen Flow Rate (L/min) (L/min) 4 Oxygen Delivery Method Nasal Cannula Pulse Ox (%) 98 Pulse Rate (60-100 beats/min) 97 Dyspnea Kelly Scale (0-10) 4 Exertion Kelly Scale (6-20) 14 Full Laps Walked 9 Partial Lap, Number of Tiles Walked 30 Total Distance Walked (ft) 561 03/18/19 12:30 (created 03/18/19 14:15) Cardiopulmonary Services by Vandana Kaur Pt arrived on 3L nasal cannula via wheelchair. SPO2 on 3L continuous flow was 98%. Pt was then taken off of her oxygen and her SPO2 on room air at rest was 94%. Walk was performed without any walking assist devices. At the two minute check pt was 83% on Room air and was placed on 3L. Pt recovered to 94%. Pt then was increased to 4L at minute 4 due to SPO2 of 87%. Pt recovered to 97%. The rest of the test was performed on 4L and pt tolerated well. Initialized on 03/18/19 14:15 - END OF NOTE - Interpretation Interpretation: The patient ambulated 561 feet over the course of 6 minutes without assistive devices or breaks. Pretesting oxygen saturation was noted to be 94% on room air. With ambulation, the patient experienced multiple significant oxygen desaturations, requiring the initiation and subsequent escalation in supplemental oxygen flow rate to 4 L/min to maintain appropriate saturations. This testing indicates the presence of impaired walk distance along with significant exertional oxygen desaturation, consistent with a pulmonary limitation to exercise tolerance. - Recommendations Recommendations: 4 L/min of supplemental oxygen should be utilized with exertion.
== END ==
PROVIDERS: Family Provider Family Medicine; PCP Family Medicine; Referring Provider Internal Medicine Critical Care Medicine; Visit Provider Internal Medicine Critical Care Medicine
DX: J96.11 Chronic respiratory failure with hypoxia (principal); Z99.81 Dependence on supplemental oxygen
CPT/HCPCS: 94618

== ENCOUNTER → 2019-03-26 07:41 | Outpatient (CLI) | payer MEDICARE, OTHER, MEDICAID, SELFPAY ==
[2019-02-24 13:16] VITALS: BMI 35.7
[2019-03-06 14:50] VITALS: BMI 38.0
--- NOTE | 2019-03-26 15:08 | PFTCOMP ---
COMPLETE PULMONARY FUNCTION TEST INTERPRETATION Brief HPI: Patient is a 74 year old female, currently under the care of Dr. Garza, who presents to [facility] for complete pulmonary function tests secondary to diagnosis of COPD. Respiratory therapist reports good effort and reproducible results. Interpretation: Forced expiration spirometry shows a moderately severe large airways obstructive ventilatory defect with an FEV1 of 54% predicted. There is no significant bronchodilator response by strict ATS criteria. Spirograms are of good quality and plateau slowly, indicating slowly emptying areas of the lungs. The respiratory flow volume loop shows decreased expiratory flow rates at high lung volumes consistent with small airways obstruction. Lung volumes by body plethysmography show a reduced total lung capacity at 3.25 L, 68% predicted. FRC and RV are elevated out of proportion. Lung volume measurements are consistent with air-trapping. Diffusion capacity by carbon monoxide is reduced at 25% predicted. The airway resistance is elevated. No previous pulmonary function tests were available for review. Impression: Irreversible moderately severe mixed ventilatory defect with a reduction in in diffusion capacity that is out of proportion.
== END ==
PROVIDERS: Family Provider Family Medicine; PCP Family Medicine; Referring Provider Internal Medicine Critical Care Medicine; Visit Provider Internal Medicine Critical Care Medicine
DX: J44.9 Chronic obstructive pulmonary disease, unspecified (principal)
CPT/HCPCS: 94060; 94726; 94729

== ENCOUNTER → 2019-04-28 12:49 | Outpatient (CLI) | payer MEDICARE, OTHER, MEDICAID, SELFPAY ==
[2019-04-02 12:39] VITALS: BMI 36.3
--- NOTE | 2019-04-28 12:58 | CT_ITS ---
STUDY: CT CHEST WITH CONTRAST REASON FOR EXAM: Female, 74 years old. 2 cm right lower lobe pulmonary nodule. Follow-up. RADIATION DOSAGE (If Supplied By Facility): CTDIvol = ( 16.00 ) mGy, DLP = ( 675.36 ) mGycm TECHNIQUE: Transaxial imaging was performed following intravenous administration of 100 IV Isovue 300. Coronal and sagittal reconstructions were performed. Individualized dose optimization techniques were used for this CT. COMPARISON: CTA chest with and without contrast 12/18/2018. FINDINGS: 2 cm subpleural mass in the right posterior lung base with minimal air bronchograms. It has few spiculated borders in the coronal reconstructed images. There is new adjacent interlobular septal thickening. This is worrisome for malignant neoplasm. This is, however, feasible for CT guided core biopsy. There is abnormal thickening in the fissures of the left lower lobe and left upper lobe. These were present previously. No other pulmonary nodules. There is no pleural fluid. Normal cardiac size. Median sternotomy from prior CABG procedure. No pericardial fluid. Equivocal minimal increase in size of enhancing lymph node with central necrosis in the anterior sternal space measuring 1.9 cm in diameter, previously 1.8 cm. Minimally enhancing lymph nodes in the left anterior paratracheal space and right anterior paratracheal space are unchanged. Enhancing lymph nodes in the left side of the transverse aorta, enhancing lymph nodes in the left hilum are unchanged. No hilar lymphadenopathy. These are metastatic lymphadenopathy until proven otherwise. Normal enhancing pulmonary arteries. Normal aorta arch and descending thoracic aorta. No suspicious lytic or blastic metastatic disease to the osseous structures. Prominent hiatal hernia is unchanged. OPINION: 1. 2 cm subpleural mass with minimal air bronchograms in the right posterior lung base with few spiculated borders in the coronal reconstructed images and new adjacent interlobular septal thickening. The size has not changed but it remains worrisome for malignant neoplasm until proven otherwise. This is, however, feasible for CT guided core biopsy. 2. Multiple enhancing enlarged lymph nodes in the anterior paratracheal space, anterior carinal space and left hilum. They are metastatic lymphadenopathy until proven otherwise. 3. Prominent hiatal hernia is unchanged. 4. Prominent fissural thickening in the left lower lobe and left upper lobe are unchanged. COMMENT: Baseline whole body PET/CT fusion scan for staging purposes will be helpful. Electronically Signed: Zion Johansen MD at 12:10 EDT , Service support , CT/Chest WITH Contrast
[2019-04-28 13:15] LABS: EGFR FINGERSTICK > 60.0000 mL/min (>60)
== END ==
PROVIDERS: Family Provider Family Medicine; PCP Family Medicine; Referring Provider Nurse Practitioner Acute Care; Visit Provider Nurse Practitioner Acute Care
DX: Z01.812 Encounter for preprocedural laboratory examination (principal); R59.0 Localized enlarged lymph nodes
CPT/HCPCS: 71260

== ENCOUNTER → 2019-07-07 07:57 | Outpatient (CLI) | payer MEDICARE, OTHER, MEDICAID, SELFPAY ==
[2019-07-02 10:56] VITALS: BMI 35.5
--- NOTE | 2019-07-07 09:00 | PET_ITS ---
EXAMINATION: FDG PET/CT INDICATIONS: A 74-year-old female with history of pulmonary nodularity. COMPARISON EXAMINATION: CT of the chest report dated 04/28/19 TECHNIQUE: Following the intravenous administration of F-18 deoxyglucose, multiplanar image acquisitions of the neck, chest, abdomen and pelvis to level of mid thigh, obtained at one hour post radiopharmaceutical administration contemporaneously interpreted with the current CT of the neck, chest, abdomen and pelvis to level of mid thigh, dated 07/07/[address] of the chest report dated 04/28/19 reveal: FINDINGS: 1. There is no quantitative scintigraphic evidence of abnormal increased glucose metabolism on meticulous inspection of whole body acquisitions to include all three axis reconstructions. 2. Normal physiologic distribution of the radiopharmaceutical is apparent in the hepatic and splenic parenchyma, both renal units, bladder and visualized intestinal tract. The visualized portion of the cerebral cortex demonstrate symmetric and preserved glucose metabolism. Diffuse radiopharmaceutical concentration is noted in all four quadrants of the abdomen and pelvis. Prominent radiopharmaceutical concentration is defined in the anterior neck, laryngeal structures contiguous to the cricopharyngeus musculature most consistent with a component of muscle tension artifact. Pertinent CT findings are as follows: CHEST: Mediastinal and the pleural-based density defined in the right lower posterior lung zone demonstrate no evidence of facilitated FDG concentration. There is evidence of prior median sternotomy. There is atherosclerotic calcification defined in the thoracic aorta without evidence of dilatation-aneurysm formation. Coronary arterial calcification is observed. A hiatal hernia is noted. There are no additional parenchymal densities-nodules defined in the right-left hemithorax. Bilateral axillary soft tissue densities are ametabolic. ABDOMEN AND PELVIS: There is atherosclerotic calcification defined in the abdominal aorta without evidence of dilatation-aneurysm formation. Abdominal-pelvic arterial calcification is observed. Cholelithiasis is defined. A fat containing periumbilical hernia is noted. Bilateral inguinal soft tissue densities with fatty hilus formation are non-glucose avid. Calcifications are defined in the bilateral lower hemipelvis in the region of the adnexa without evidence of facilitated FDG uptake. SKELETAL: Degenerative changes are noted in the cervical, thoracic and lumbar spine. PET/PET/CT Tumor Base -Thigh Init IMPRESSION: 1. NEGATIVE EXAMINATION. There is no definitive quantitative scintigraphic evidence of viable neoplasm. 2. Anatomic stability may be ensured in the right lower posterior lung field ametabolic parenchymal density with repeat CT of the thorax in three months. (Luz Elena, Seminars in Thoracic and Cardiovascular Surgery 14:292, 2002). Electronic Signature Agapito Melgoza D.O. Electronically Signed: Agapito Melgoza DO at 23:16 EST Tel , Service support ,
== END ==
PROVIDERS: Family Provider Family Medicine; PCP Family Medicine; Referring Provider Internal Medicine Critical Care Medicine; Visit Provider Internal Medicine Critical Care Medicine
DX: R91.8 Other nonspecific abnormal finding of lung field (principal)
CPT/HCPCS: 78815; A9552

== ENCOUNTER → 2020-05-05 13:12 | Outpatient (CLI) | payer MEDICARE, MEDICAID, SELFPAY ==
[2020-01-21 10:35] VITALS: BMI 35.5
--- NOTE | 2020-05-05 16:07 | ST.MBS ---
Modified Barium Swallow - Patient Information Study Date: 05/05/20 Study Time: 13:30 Direct Billable Minutes: 65 Total Minutes procedure & reportin Diagnosis: Dysphagia (R13.10) Referring Physician: Veto Stanley Reason for Referral: The Patient is a pleasant 75-year-old female referred for a modified barium swallow (MBS) study to objectively assess the Patients oropharyngeal swallow function under fluoroscopy secondary to reported concerns for aspiration component with her most recent bout of pneumonia (reports numerous prior incidence), which she reports involved consolidation primarily within the right lower lobe. She denies any current issues with intake. Medical History: Chronic obstructive pulmonary disease, pulmonary mass, chronic hypoxemic respiratory failure with hypoxia, supplemental oxygenation (baseline 4L/min via nasal cannula), obstructive sleep apnea, prior smoker (40 PPY; quit in 2014), recurrent pneumonia, atherosclerotic heart disease of [place] coronary artery without angina pectoris status post sent placement, status post coronary artery bypass surgery (~2003), status post mitral valve replacement with mechanical valve (~2003), status post coronary angioplasty implant and graft (07/20/2016), persistent atrial fibrillation, chronic diastolic heart failure, history of cardioversion, chronic anticoagulation, essential hypertension, mixed hyperlipidemia, loss of consciousness, adult failure to thrive, chronic debility, degenerative joint disease (lumbar), type 2 diabetes mellitus Respiratory Status: Oxygenating on 3L/M nasal cannula - Penetration-Aspiration Scale Penetration-Aspiration Scale: OBJECTIVE ASSESSMENT OF SWALLOW FUNCTION (QUANTITATIVE ? PER TRIAL): PENETRATION / ASPIRATION SCALE (FARAH): 1 = does not enter airway 2 = enters airway/above vocal folds/ejected 3 = enters airway/above vocal folds/not ejected 4 = enters airway/contacts vocal folds/ejected 5 = enters airway/contacts vocal folds/not ejected 6 = enters airway/below vocal folds/ejected 7 = enters airway/below vocal folds/not ejected despite effort 8 = enters airway/below vocal folds/no effort - Penetration-Aspiration Scale Score Thin Liquid via teaspoon Result: 1= does not enter airway Thin Liquid Result: 2= enter airway/above vocal folds/ejected Thin Liquid Trial 2 Result: 1= does not enter airway Thin Liquid Trial 3 Result: 2= enter airway/above vocal folds/ejected Thin Liquid via single sip from straw Result: 2= enter airway/above vocal folds/ejected Thin Liquid via sequential sips from straw Result: 2= enter airway/above vocal folds/ejected Pudding Result: 1= does not enter airway Cookie Result: 1= does not enter airway Thin Liquid Chin tuck Result: 1= does not enter airway Thin Liquid Chin tuck Trial 2 Result: 1= does not enter airway Thin Liquid Chin tuck Trial 3 Result: 1= does not enter airway - Oral Phase Labial Seal: No Labial Escape Tongue Control During Bolus Hold: Cohesive bolus between tongue to palatal seal Bolus Preparation/Mastication: Timely and efficient chewing and mashing Bolus Transport/Lingual Motion: Brisk tongue motion Oral Residue: Complete oral clearance - Pharyngeal Phase Initiation of Pharyngeal Swallow: Bolus head at posterior laryngeal surgace of epiglottis Soft Palate Elevation: No bolus between soft palate and pharyngeal wall Laryngeal Elevation: Partial superior movement thyroid cart/partial apprx aryt-epig petiole Anterior Hyoid Excursion: Partial anterior movement Epiglottic Movement: Complete inversion Laryngeal Vestibule Closure at Height of Swallow: Complete; no air/contrast in laryngeal vestibule Pharyngeal Stripping Wave: Present - complete Pharyngoesophageal Segment Opening: Complete distension and complete duration; no obstruction of flow Tongue Base Retraction: Trace column of contrast between tongue base & post. pharyngeal wall Pharyngeal Residue: Complete pharyngeal clearance - Diagnosis/Impression Diagnosis: Dysphagia (R13.12) Impression: The Patient presents with mild oropharyngeal dysphagia (DSRS: 2; DCS: 0) with intermittent shallow transient penetration with thin liquids secondary to the diagnosis of chronic obstructive pulmonary disease. - Recommendations Comment: DIET TEXTURE RECOMMENDATIONS:will recommend a regular textured (IDDSI: 7), thin liquid diet (IDDSI: 0) diet RECOMMENDED COMPENSATORY STRATEGIES: chin tuck via straw with all liquids, consider cutting tougher textures into bite sized pieces, encouraged her to select sides that require less mastication (for example: salads), reduced bolus volume / rate of ingestion, seated upright at 90 degrees during PO intake Comment: Her oral preparatory and oral transitional phase appear unremarkable; she demonstrates a mild pharyngeal phase dyssynchrony in addition to a mild reduction in hyolaryngeal excursion contributing to her intermittent shallow penetration with thin liquids, though she demonstrates sufficient / consistent laryngeal vestibule pressure generated to expel penetrated material. Use of the chin tuck posture improved bolus placement during swallow onset, reducing the incidence of penetration. When considering the diagnosis of chronic obstructive pulmonary disease, she is at a higher risk of disruption in the expiration ? swallow ? expiration pattern which may further complicate intake towards the latter portions of the meal; prominent cricopharyngeal bar located at the C-5 C-6 level, no impact on pharyngoesophageal motility; noted calcification along the inferior portions of the larynx, though this did not significantly impact image quality Education Completed: 1. Described result of evaluation., 2. Pt understands evaluation & agrees with goals and treatment plan. - Image Count: [id number] - Status Active ST Patient: Not Active - Contact Information [facility]:: Oscar Marin M.A., CCC-METHODS AND PROCEDURES ANALYST, CBIS MBSImP Certified, LSVT Certified [facility]-Language [facility] Department Email: [email or web address]
== END ==
PROVIDERS: PCP Family Medicine; Referring Provider Nurse Practitioner Family; Visit Provider Nurse Practitioner Family
DX: R13.12 Dysphagia, oropharyngeal phase (principal)
CPT/HCPCS: 74230; 92611

== ENCOUNTER → 2021-03-16 14:07 | Outpatient (CLI) | payer MEDICARE, MEDICAID, SELFPAY ==
[2021-03-09 10:52] VITALS: BMI 40.8
--- NOTE | 2021-03-16 14:12 | ECHOCS_ITS ---
Reason For Study: Dyspnea/SOB Procedure This was a 2D Doppler, Color Flow transthoracic echocardiogram. The study was technically difficult. Contrast injection was performed. Exam performed in department. Left Ventricle Based upon the 2D echocardiographic and contrast enhanced images obtained there appears to be grossly normal left ventricular size, wall motion, and systolic function. The estimated ejection fraction is 55 %. Post operative septal motion. Unable to assess diastolic dysfunction. Right Ventricle Based upon the 2D echocardiographic and contrast enhanced images obtained there appears to be grossly normal right ventricular size and systolic function. Atria Normal left atrium. The right atrium is mildly enlarged. No doppler evidence for ASD. Mitral Valve Stable appearing mechanical mitral valve apparatus. Tricuspid Valve Normal tricuspid valve. Moderate (2+) tricuspid valve insufficiency. Right ventricular systolic pressure estimated to be 63 mmHg. Aortic Valve Trisinus/trileaflet aortic valve. Mild focal aortic valve calcification. Pulmonic Valve The pulmonic valve is not well visualized. Great Vessels The aortic root is not well visualized. Pericardium/Pleural No pericardial effusion. Medication 22 gauge I.V. with prn adaptor inserted into left arm. Diluted definity 3ml given slow IV push to enhance endocardial definition. MMode/2D Measurements & Calculations LVIDd: 4.8 cm IVSd: 0.76 cm LA dimension: 4.8 cm LVIDs: 3.9 cm LVPWd: 1.0 cm RVDd: 3.5 cm FS: 19.0 % LAV(MOD-bp): 31.9 ml LA A4 area: 13.7 cm2 RA A4 area: 20.0 cm2 LAV(MOD-bp) Indexed: 15.4 ml/m2 LAV(MOD-sp2): 32.4 ml LAV(MOD-sp4): 28.8 ml Doppler Measurements & Calculations MV E max wilfrid: 151.9 cm/sec Med Peak E' Wilfrid: 5.6 cm/sec Ao V2 max: 108.5 cm/sec E/E' med: 27.1 Ao max P.7 mmHg LV V1 max: 80.5 cm/sec PA V2 max: 85.0 cm/sec TR max wilfrid: 385.9 cm/sec LV V1 max P.6 mmHg TR max P.6 mmHg ECHO/Echo Complete W/ Contrast Interpretation Summary The study was technically difficult. Contrast injection was performed. Based upon the 2D echocardiographic and contrast enhanced images obtained there appears to be grossly normal left ventricular size, wall motion, and systolic function. The estimated ejection fraction is 55 %. Post operative septal motion. The right atrium is mildly enlarged. Stable appearing mechanical mitral valve apparatus. Moderate (2+) tricuspid valve insufficiency. Mild focal aortic valve calcification. Right ventricular systolic pressure estimated to be 63 mmHg. Unable to assess diastolic dysfunction. Ordering Physician: Elsi Doty Referring Physician: Veto Stanley Performed By: Rosalio Bueno RCS
== END ==
PROVIDERS: PCP Family Medicine; Referring Provider Physician Assistant Medical; Visit Provider Physician Assistant Medical
DX: I25.10 Atherosclerotic heart disease of native coronary artery without angina pectoris (principal)
CPT/HCPCS: 93306; Q9957; A4216; C8929; J3490

== ENCOUNTER → 2022-04-27 | Outpatient (CLI) | payer MEDICARE, SELFPAY ==
--- NOTE | 2022-04-27 13:51 | CT_ITS ---
STUDY: LOW DOSE CT LUNG CANCER SCREENING REASON FOR EXAM: Female, 77 years old. Smoker and gt; 40 pack years quit 2014 RADIATION DOSAGE (If Supplied By Facility): CTDIvol = ( 4.02 ) mGy, DLP = ( 135.92 ) mGycm TECHNIQUE: No contrast was administered. Low dose technique was utilized (average mAS-38 and kVp 120). 1.25 mm axial source images with a slice interval of 1.25-mm were reconstructed in lung windows. 2.5 mm axial source images with a slice interval of 2.5-mm were reconstructed in lung windows. 5.0 mm axial source images with a slice interval of 5.0-mm were reconstructed in soft tissue windows. COMPARISON: Comparison is made with prior examination dated 04/28/2019. NODULES: Persistent 1.5 cm x 1.2 cm pleural-based irregular nodule in the posterior medial aspect of the right lower lobe. A small amount of air bronchograms is seen anterior. This may represent a focal area of scarring. Emphysema: Mild degree of emphysematous changes. Persistent scarring at the left lung base. Minimal degree of left pleural thickening. Endobronchial lesion: None Aorta: Atherosclerotic plaque formation. CORONARY ARTERIES: Coronary artery calcification is seen. Prior midline sternotomy and mitral valve replacement. Heart: Unremarkable Pulmonary artery: Unremarkable Mediastinal nodes: Small mediastinal lymph nodes. Other chest and abdominal findings: CT/Low Dose CT Lung Screening IMPRESSION: Lung-RADS category 2 - Continue annual screening with LDCT in 12 months. IMPORTANT NOTES FOR USE: ACR Lung-RADS Version 1.1 Assessment Categories Release Date: 2018 Category: Coded 0-4 bases on nodule(s) with highest degree of suspicion. Negative screen is defined as categories 1 and 2; a positive screen is defined as categories 3 and 4. Category 3 and 4A nodules that are unchanged on interval CT should be coded as category 2, and individuals returned to screening in 12 months. Category 4X: Category 3 or 4 nodules with additional imaging findings that increase the suspicion of lung cancer, such as spiculation, GGN that doubles in size in 1 year, enlarged lymph notes, etc. Category Modifiers: S (significant finding unrelated to lung cancer) Electronically Signed: Simon Rust MD at 15:30 EDT ,
== END | disposition home or self-care (01) ==
LOC: CT 13:51
PROVIDERS: PCP Family Medicine; Referring Provider Nurse Practitioner Acute Care; Visit Provider Nurse Practitioner Acute Care
DX: Z12.2 Encounter for screening for malignant neoplasm of respiratory organs (principal); F17.210 Nicotine dependence, cigarettes, uncomplicated
CPT/HCPCS: 71271

== ENCOUNTER → 2023-04-25 | Outpatient (CLI) | payer MEDICARE, MEDICAID, SELFPAY ==
--- NOTE | 2023-04-25 13:58 | CT_ITS ---
INDICATION: Lung Nodule EXAMINATION: CT CHEST WITHOUT CONTRAST - CT Chest W/O Contrast Injection TECHNIQUE: Helically acquired images were obtained of the chest. A radiation dose optimization technique was used for this scan. IV Contrast dosage and agent: None. RADIATION DOSAGE (If Supplied By Facility): CTDIvol = ( 17.84 ) mGy, DLP = ( 628.40 ) mGycm COMPARISON: Prior study dated: 04/27/2022 and 04/28/2019 FINDINGS: LUNGS, PLEURA AND LARGE AIRWAYS: The central airways are patent. Irregular reticular markings are seen in the right upper lobe diffusely as well as scattered in the remaining lungs bilaterally. This is similar to prior given differences in technique. Bandlike opacity/scarring in the left lower lobe is unchanged. Unchanged nodule in the right lower lobe subpleural region with central calcification. This measures 1.8 x 1.4 cm on series 4 image 97. This is unchanged when measured by me. Other calcified granulomata are present in the lungs. No new pulmonary nodule. No pleural effusion or thickening. No pneumothorax. THYROID: No thyroid lesions. HEART AND PERICARDIUM: Enlarged heart. Mitral annular hardware. No pericardial effusion. CORONARY ARTERIES: Coronary artery calcification is seen. These are severe. Status post CABG. VESSELS: Thoracic aorta is not dilated. Dilated main pulmonary artery measures 3.3 cm. MEDIASTINUM AND ZOE: Calcified mediastinal and hilar lymph nodes are seen bilaterally, similar to prior. These remain prominent. Esophagus is unremarkable. Small hiatal hernia. UPPER ABDOMEN: No acute pathology. BONES: No acute or suspicious osseous abnormality. Degenerative changes throughout the spine. CT/Chest without Contrast IMPRESSION: Chronic changes in the lungs with prominent reticulation. This reticulation is progressively worsened since 2019. Bandlike scarring in the left lower lobe is unchanged over multiple years. The subpleural right lower lobe nodule is also unchanged since at least 2019. This suggests benign etiology. Evidence of prior granulomatous disease. Electronically Signed: Kev Borges MD at 22:55 EDT ,
== END | disposition home or self-care (01) ==
LOC: CT 13:56
PROVIDERS: PCP Family Medicine; Referring Provider Internal Medicine Critical Care Medicine; Visit Provider Internal Medicine Critical Care Medicine
DX: R91.1 Solitary pulmonary nodule (principal)
CPT/HCPCS: 71250

== ENCOUNTER 2023-10-05 13:14 | Inpatient (IN) | payer MEDICARE, MEDICAID, SELFPAY ==
[2023-10-05] VITALS (9 sets, daily range): BP systolic 105–123; BP diastolic 70–100; PULSE 76–103; RESP 14–26; TEMP 36.3–36.6; O2SAT 91–97; BMI 45.8; BMI 39.2
--- NOTE | 2023-10-05 13:20 | ED.RN ---
PT REFUSES BEDSIDE COMMODE, DEMANDS A WC
--- NOTE | 2023-10-05 13:22 | ED.RN ---
PT COMPLAINING ABOUT NEEDING TO GO TO THE BATHROOM BEFORE BEING TRIAGED, REFUSED BEDSIDE COMMADE, THEN DEMANDS A WC. WHILE WAITING ON WC CONTINUES TO COMPLAIN ABOUT I NEED TO GO TO THE BATHROOM REAL BAD .
--- NOTE | 2023-10-05 13:26 | EX.ED.DYSGE1 ---
HPI History of Present Illness Chief Complaint: Cellulitis [facility] Medical History (Reviewed 05/28/23 @ 13:17 by Shira Hudson PHYSICAL DESIGN ENGINEER, PHYSICAL DESIGN ENGINEER-C) Atherosclerotic heart disease of [place] coronary artery without angina pectoris Chronic anticoagulation Chronic diastolic heart failure Chronic respiratory failure with hypoxia, on home O2 therapy COPD (chronic obstructive pulmonary disease) Debility DJD (degenerative joint disease), lumbar Essential hypertension History of cardioversion (~01/16/19) Loss of consciousness Mixed hyperlipidemia Persistent atrial fibrillation Presence of stent in coronary artery (~07/20/16) Pulmonary hypertension, moderate to severe Type 2 diabetes mellitus Home Medications atorvastatin 80 mg tablet 80 mg PO QHS cholesterol 12/18/18 [History Last Taken 01/11/19] cholecalciferol (vitamin D3) 25 mcg (1,000 unit) tablet 1,000 unit PO DAILY suppliment 12/18/18 [History Last Taken 01/12/19] furosemide 40 mg tablet 40 mg PO DAILY diuretic 12/18/18 [History Last Taken 01/12/19] guaifenesin 100 mg/5 mL oral liquid 10 ml PO Q4H PRN PRN COUGH 12/22/18 [Rx Last Taken Unknown] potassium chloride 20 mEq tablet,extended release(part/cryst) 20 meq PO DAILY supplement 01/12/19 [History Last Taken 01/12/19] loratadine 10 mg tablet 10 mg PO DAILY 06/05/19 [History Last Taken Unknown] artifi.tears(hypromellose)(PF) 0.3 % eye drops 2 drp ophthalmic (eye) 4-8XD 07/28/20 [History Last Taken Unknown] fluticasone furoate 100 mcg-vilanterol 25 mcg/dose inhalation powder 1 inh inhalation DAILY asthma/copd 01/18/22 [History Last Taken Unknown] insulin glargine 100 unit/mL (3 mL) subcutaneous pen 27 unit subcut QHS dm 01/18/22 [History Last Taken Unknown] menthol 4 % topical gel (Biofreeze (menthol)) 1 applic topical BID PRN pain 01/18/22 [History Last Taken Unknown] ondansetron HCl 4 mg tablet 4 mg PO Q6H PRN nausea and vomiting 01/18/22 [History Last Taken Unknown] semaglutide 0.25 mg or 0.5 mg (2 mg/1.5 mL) subcutaneous pen injector 0.5 mg subcut QWEEK 01/18/22 [History Last Taken 09/29/23] albuterol sulfate 2.5 mg/3 mL (0.083 %) solution for nebulization 2.5 mg inhalation Q4H 08/22/22 [History Last Taken Unknown] acetaminophen 325 mg tablet 650 mg PO Q4H PRN Mild pain 1-3/Temp > 100.7 F 05/28/23 [History Last Taken Unknown] bisacodyl 10 mg rectal suppository (Dulcolax (bisacodyl)) 10 mg TN DAILY 05/28/23 [History Last Taken Unknown] dextrose 40 % oral gel (Glucose Gel) 15 g PO Q15M PRN hypoglycemia 05/28/23 [History Last Taken Unknown] glucagon HCl 1 mg solution for injection (Glucagon (HCl) Emergency Kit) 1 mg subcut Q15M PRN hypoglycemia 05/28/23 [History Last Taken Unknown] insulin aspart U-100 100 unit/mL subcutaneous solution (Novolog U-100 Insulin aspart) 1 sliding scale dose subcut USEASDIRECTD 05/28/23 [History Last Taken Unknown] magnesium hydroxide 400 mg/5 mL oral suspension (Almanza Milk of Magnesia) 30 ml PO DAILY PRN constipation 05/28/23 [History Last Taken Unknown] mineral oil (Fleet Mineral Oil enema) 118 ml TN DAILY PRN constipation 05/28/23 [History Last Taken Unknown] warfarin 2 mg tablet 2 mg PO DAILY 05/28/23 [History Last Taken Unknown] cephalexin 500 mg capsule 500 mg PO Q6H 10/05/23 [History Last Taken 10/05/23] melatonin 5 mg tablet 5 mg PO QHS 10/05/23 [History Last Taken Unknown] Allergy/AdvReac Type Severity Reaction Status Date / Time levofloxacin [From Levaquin] Allergy Hives Verified 10/05/23 13:18 Iodinated Contrast Media AdvReac Swelling Verified 10/05/23 13:18 [CONTRASTS] Family History (Reviewed 05/28/23 @ 13:17 by Shira Hudson PHYSICAL DESIGN ENGINEER, PHYSICAL DESIGN ENGINEER-C) Father Heart disease Myocardial infarction Cancer prostate Diabetes A-fib Mother CVA (cerebral vascular accident) Myocardial infarction CAD (coronary artery disease) Surgical History History of coronary artery bypass surgery (~2003) History of mitral valve replacement with mechanical valve (~2003) Presence of coronary angioplasty implant and graft (~07/20/16) Social History (Reviewed 05/28/23 @ 13:17 by Shira Hudson PHYSICAL DESIGN ENGINEER, PHYSICAL DESIGN ENGINEER-C) Smoking Status: Former smoker Tobacco: How many years used: 40 how long ago did patient quit smokin, 1ppd second hand exposure: Yes alcohol intake: never substance use type: does not use caffeine: Yes Type: coffee Number of servings: 2 EXAM Physical Exam Const Vital Signs: 10/05/23 13:24 10/05/23 15:33 Temperature 97.3 F L Temperature Source Temporal Pulse Rate 101 H 103 H Respiratory Rate 26 H 16 Blood Pressure 105/70 116/73 Blood Pressure Mean 81 87 Pulse Ox 91 96 Oxygen Delivery Method Room Air Nasal Cannula Oxygen Flow Rate (L/min) 3.5 MDM MDM MDM Narrative Medical decision making narrative: HISTORY OF PRESENT ILLNESS: 78-year-old female presents with concern for cellulitis. She states she has been on oral antibiotics for the last 5 days. She is unable to name what antibiotic. She notes since she started this redness is gotten worse specific in her left leg and now has moved her right leg. She denies any vomiting. She notes severe pain. Patient denies active cancer, being bedridden for greater than 3 days, denies any varicose veins, denies any calf tenderness, denies tenderness along deep venous system. Denies major surgery within 12 weeks, recent paralysis, previous DVT. REVIEW OF SYSTEMS: Pertinent positives: Leg pain, redness, shortness of breath (chronic) Pertinent negatives: Vomiting, fever PHYSICAL EXAM: Nursing triage notes reviewed, Vital signs reviewed Constitutional: please see mdm HENT: MMM Eyes: Pupils equal round and reactive to light, Extraocular muscles intact Neck: No stridor, no JVD, full neck ROM Lungs: Clear to auscultation, No wheezing or rales. No increased work of breathing, no conversational dyspnea, no accessory muscle use, no nasal flaring. No respiratory distress noted Heart: Regular rate and rhythm, No murmurs, No rubs and No gallops, 2+ distal pulses (radial, femoral, posterior tibial) in all extremities Abdomen: Soft, there is no tenderness, rigidity, rebound or guarding, no obvious peritoneal signs, no palpable pulsatile abdominal masses, no auscultated abdominal bruit : No CVAT Extremities: 2+ pitting edema, dopplerable pulses in bilateral lower extremities, TTP in bilateral calves Neuro: N intact sensation L1-S1 dermatomal distributions. Intact 5/5 strength in hip flexion (T12-L3). Knee extension (L2-L4). Ankle dorsiflexion (L4-L5). Ankle plantar flexion (S1). Great toe extension (L5). 2+ patellar and Achilles DTRs. Skin: erythema noted from send to the patient's left ankle up the entire leg to the left knee. There is a small area of redness to the right mid tibia. There is no crepitus, bullae, fluctuance or induration. MEDICAL DECISION MAKING: Chief Complaint: Cellulitis External records reviewed: No recent office visits describing antibiotic prescription Factors affecting care: Type 2 diabetes, tobacco abuse, COPD with home O2, on warfarin secondary to atrial fibrillation, hyperlipidemia Consults: Hospitalist (Dr. Villalba) MDM Narrative: Patient was initially tachycardic, tachypneic but afebrile saturating well with home oxygen in the setting of COPD I considered the following differential diagnosis: Cellulitis, necrotizing fasciitis, DVT I obtained a broad lab and imaging workup to further elucidate etiology patient complaints. I gave empiric antibiotics in the form of vancomycin. Treat patient's pain with morphine. Give 1 L normal saline. ALL IMAGES (IF OBTAINED) HAVE BEEN PERSONALLY REVIEWED AND INTERPRETED BY MYSELF. CBC without leukocytosis, severe anemia, no thrombocytopenia. DVT study negative BMP without evidence of significant electrolyte abnormalities, no anion gap, no acute kidney injury. The synthesis of the patient's history, physical exam, labs images suggest bilateral cellulitis that is failed outpatient treatment. Given the patient's age, history of diabetes and concern for poor outcome if treated as an outpatient I gave IV antibiotics just admit the patient for ongoing antibiotic therapy and monitoring. Discussed with hospitalist. The patient and/or family, caregivers express understanding. The patient and/or family, caregivers agrees with the plan. Shared decision making: I will have a discussion with the patient and or visitors regarding risk/benefits of further testing or admission. They will be made aware of of the risk/benefits inherent in this decision they will be given the opportunity to voice understanding. Total critical care time today provided was at least 0 minutes. This excludes separately billable procedures. Critical care time (if documented) is secondary to the patient having high probability of clinically significant/life threatening deterioration in the patient's condition which required my urgent intervention. Impression: 1. Bilateral cellulitis 2. Leg swelling 3. History of diabetes Dispo: Admit to medicine This note was generated with [employer] dictation software. It may contain incorrect words, spelling, and punctuation that were not noted in review of the chart prior to signing. Lab Data Labs: Laboratory Results - last 24 hr 10/05/23 14:41 WBC 10.2 RBC 5.32 Hgb 15.7 H Hct 50.4 H MCV 94.7 MCH 29.5 MCHC 31.2 L RDW Std Deviation 60.0 H RDW Coeff of Demian 17.6 H Plt Count 219 MPV 12.1 H Immature Gran % (Auto) 0.400 Neut % (Auto) 74.8 H Lymph % (Auto) 13.0 L [place] % (Auto) 10.0 Eos % (Auto) 0.9 Baso % (Auto) 0.9 Absolute Neuts (auto) 7.7 Absolute Lymphs (auto) 1.33 Nucleated RBC % 0 Sodium 140 Potassium 4.4 Chloride 106 Carbon Dioxide 27.0 Anion Gap 7 BUN 18 Creatinine 1.37 H Estim Creat Clear Calc 38.53 Est GFR (MDRD) Af Amer 48 L Est GFR (MDRD) Non-Af 40 L BUN/Creatinine Ratio 13.1 Glucose 148 H Calcium 9.4 Discharge Plan Triage Chief Complaint: Cellulitis ED Provider: Tab Tillman Dx/Rx/DC Orders Prescriptions: No Action loratadine 10 mg tablet 10 mg PO DAILY artifi.tears(hypromellose)(PF) 0.3 % drops 2 drp OPHTHALMIC 4-8XD Biofreeze (menthol) 4 % gel 1 applic topical BID PRN (Reason: pain) Ozempic 0.25 mg or 0.5 mg(2 mg/1.5 mL) pen injector 0.5 mg subcut QWEEK ondansetron HCl 4 mg tablet 4 mg PO Q6H PRN (Reason: nausea and vomiting) albuterol sulfate 2.5 mg /3 mL (0.083 %) solution for nebulization 2.5 mg inhalation Q4H warfarin 2 mg tablet 2 mg PO DAILY bisacodyl [Dulcolax (bisacodyl)] 10 mg suppository 10 mg TN DAILY acetaminophen 325 mg tablet 650 mg PO Q4H PRN (Reason: Mild pain 1-3/Temp > 100.7 F) mineral oil [Fleet Mineral Oil] Enema 118 ml TN DAILY PRN (Reason: constipation) Rx Instructions: discard any unused portion dextrose [Glucose Gel] 40 % gel 15 g PO Q15M PRN (Reason: hypoglycemia) Rx Instructions: until symptoms of low blood sugar are controlled glucagon HCl [Glucagon (HCl) Emergency Kit] 1 mg recon soln 1 mg subcut Q15M PRN (Reason: hypoglycemia) Rx Instructions: until target blood sugar attained magnesium hydroxide [Almanza Milk of Magnesia] 400 mg/5 mL suspension 30 ml PO DAILY PRN (Reason: constipation) Rx Instructions: if no BM in 3 consecutive days insulin aspart U-100 [Novolog U-100 Insulin aspart] 100 unit/mL solution 1 sliding scale dose subcut USEASDIRECTD Rx Instructions: if 155-199= 3 units; 200-250 = 5 units; 251-300= 10 units; 301-350= 12 units; 351-400= 15 units. Sub Q before meals atorvastatin 80 MG tablet 80 mg PO QHS cholecalciferol (vitamin D3) 1,000 UNIT tablet 1,000 unit PO DAILY furosemide 40 MG tablet 40 mg PO DAILY guaifenesin 10 ML liquid 10 ml PO Q4H PRN PRN (Reason: COUGH) 0RF fluticasone furoate-vilanterol 100-25 mcg/dose blister with device 1 inh inhalation DAILY potassium chloride 20 MEQ tablet 20 meq PO DAILY insulin glargine 100 unit/mL (3 mL) insulin pen 27 unit subcut QHS cephalexin 500 mg capsule 500 mg PO Q6H Patient Comments: 2 DOSES GIVEN TODAY Rx Instructions: X10D, STARTED 09/30 melatonin 5 mg tablet 5 mg PO QHS Primary Care Provider: Veto Stanley Referrals: Veto Stanley MD [Primary Care Provider] -
--- NOTE | 2023-10-05 13:36 | ED.RN ---
PT REFUSING TO GET OUT OF WC AND BACK IN BED
--- NOTE | 2023-10-05 14:05 | VDLE_ITS ---
Reason For Study: SWELLING RIGHT LEFT GSV is normal. GSV is normal. CFV is compressible, spontaneous, competent CFV is compressible, spontaneous, competent, and demonstrates pulsatile venous flow. and demonstrates pulsatile venous flow. FV is compressible, spontaneous, competent FV is compressible, spontaneous, competent and demonstrates pulsatile venous flow. and demonstrates pulsatile venous flow. POP V is compressible, spontaneous, competent POP V is compressible, spontaneous, competent and demonstrates pulsatile venous flow. and demonstrates pulsatile venous flow. T/P Trunk is compressible. T/P Trunk is compressible. PTV is compressible. PTV is compressible. RT PerV is compressible. LT PerV is compressible. Procedure Exam performed portable in ED. The exam was abbreviated due to the COVID 19 protocol. The study was technically difficult. PT could NOT tolerate all compressions, relied on color and pulsed doppler. A preliminary report was called and/or faxed to ED. VL/Venous Duplex US - Yg Extrem Interpretation Summary Deep veins of the bilateral lower extremities are patent and compressible segme ntally. There is no evidence of bilateral lower extremity deep vein thrombosis. The bilateral great saphenous veins appear patent and compressible segmentally. Ordering Physician: Tab Tillman Referring Physician: Veto Stanley Performed By: Viki Rhodes, TERESA, RVT
[2023-10-05] MEDS: Ondansetron 4 MG/2 ML Vial IV (14:41)
[2023-10-05] MEDS: Morphine 4 MG/ML Syringe IV ×2 (14:42→16:18)
[2023-10-05] MEDS: 0.9% Normal Saline (500mL Bag) 500 ML 999 ML IV (14:43)
[2023-10-05 14:54] LABS: Absolute Lymphocyte Count 1.33 X10^3/uL (0.83-4.51); Absolute Neutrophil Count 7.7 X10^3/uL (2.0-7.7); Basophil# 0.09 X10^3/uL; Basophil% 0.9 % (0-1); Eosinophil# 0.09 X10^3/uL; Eosinophils% 0.9 % (0-5); Hematocrit 50.4 % (37-47); Hemoglobin 15.7 g/dL (12.0-15.0); Lymphocyte # 1.33 X10^3/ul (0.83-4.51); Mean Corp Hgb Conc 31.2 g/dL (32-36); Mean Corpuscular Hgb 29.5 pg (27.0-32.0); Mean Corpuscular Volume 94.7 fL (81-99); Mean Platelet Vol. 12.1 fl (6.2-12.0); Monocyte# 1.02 X10^3/uL; NRBC Flagged by Analyzer 0 % (0-5); Neutrophil # 7.66 X10^3/uL (2.7-7.7); Neutrophil % 74.8 % (47-70); Platelet Count 219 K/mm3 (150-450); RBC Distribution Width CV 17.6 % (11.6-14.6); Red Blood Count 5.32 M/mm3 (4.2-5.4); White Blood Count 10.2 K/mm3 (4.4-11.0)
[2023-10-05] MEDS: Vancomycin HCl 1,500 MG in 0.9% Normal Saline (500mL Bag) 500 ML 250 MG IV (14:55)
[2023-10-05 15:10] LABS: Anion Gap 7 (5-15); BUN 18 mg/dL (7-18); BUN/Creat Ratio 13.1 RATIO (10-20); Calcium,Total 9.4 mg/dL (8.5-10.1); Chloride 106 mmol/L (98-107); Creatinine, Serum 1.37 mg/dL (0.55-1.02); EST Glomerular Filtration Rate 40 mL/min (>60); Est Glom Filt Rate - Afr Amer 48 mL/min (>60); Estimated Creatinine Clearance 38.53 ml/min; Glucose 148 mg/dL (74-106); Potassium 4.4 mmol/L (3.5-5.1); Sodium Level 140 mmol/L (136-145)
[2023-10-05] MEDS: Ketorolac 15 MG/ML Vial IV (16:19)
[2023-10-05 16:33] LABS: Erythrocyte Sedimentation Rate 28 mm/hr (0-30)
--- NOTE | 2023-10-05 16:34 | HP.PCM.HOS_ITS ---
HPI - General General Date of Admission: 10/05/23 Date of Service: 10/05/23 Chief Complaint: Left lower extremity cellulitis with outpatient failure HPI Narrative REMINGTON HERNANDEZ, is a 78 F who presented to the emergency department at [facility] from local nursing facility with left lower extremity cellulitis that has been worsening despite outpatient oral antibiotics. She stated she began to have some redness in her left lower extremity on Sunday and was started on antibiotics on Sunday. She is a known diabetic. She was given Keflex and has not missed any doses of her antibiotics. Despite ongoing antibiotic therapy she has worsening redness with proximal spread of the erythema and worsening pain in her left lower extremity. She also reports she is developed a small area on her right calf that is red now 2. She has a few healing wounds on her lower extremities which is likely the nidus for infection. She complains of chills, generalized weakness in addition to her left lower extremity swelling, pain, and erythema. She denies any known fevers. She is chronically dependent on oxygen at 3-1/2 L. Vital signs show a temperature of 98 degrees, blood pressure is 111/87, heart rate 97, respiratory rate 24 and oxygen saturations are 93% on 3.5 L. Her CBC is overall unremarkable. She does have a left shift with a 74.8% neutrophilia. Her chemistry panel shows normal electrolytes with a stable serum creatinine 1.37. Her serum glucose is 148. ESR and CRP are pending. There is no purulence or fluctuance in the leg so I do not think we need any advanced imaging at this time. I have outlined the left lower extremity and small area in her right lower extremity with purple marker to delineate area of infection Patient will be admitted to the medical floor as a full admission for ongoing treatment of her left lower extremity cellulitis and debility. [facility] Medical History Atherosclerotic heart disease of [place] coronary artery without angina pectoris Chronic anticoagulation Chronic diastolic heart failure Chronic respiratory failure with hypoxia, on home O2 therapy COPD (chronic obstructive pulmonary disease) Debility Diabetes DJD (degenerative joint disease), lumbar Essential hypertension History of cardioversion (~01/16/19) Hypertension Loss of consciousness Mixed hyperlipidemia On home oxygen therapy Persistent atrial fibrillation Presence of stent in coronary artery (~07/20/16) Pulmonary hypertension, moderate to severe Type 2 diabetes mellitus Home Medications atorvastatin 80 mg tablet 80 mg PO QHS cholesterol 12/18/18 [History Last Taken 01/11/19] cholecalciferol (vitamin D3) 25 mcg (1,000 unit) tablet 1,000 unit PO DAILY suppliment 12/18/18 [History Last Taken 01/12/19] furosemide 40 mg tablet 40 mg PO DAILY diuretic 12/18/18 [History Last Taken 01/12/19] guaifenesin 100 mg/5 mL oral liquid 10 ml PO Q4H PRN PRN COUGH 12/22/18 [Rx Last Taken Unknown] potassium chloride 20 mEq tablet,extended release(part/cryst) 20 meq PO DAILY supplement 01/12/19 [History Last Taken 01/12/19] loratadine 10 mg tablet 10 mg PO DAILY 06/05/19 [History Last Taken Unknown] artifi.tears(hypromellose)(PF) 0.3 % eye drops 2 drp ophthalmic (eye) 4-8XD 07/28/20 [History Last Taken Unknown] fluticasone furoate 100 mcg-vilanterol 25 mcg/dose inhalation powder 1 inh inhalation DAILY asthma/copd 01/18/22 [History Last Taken Unknown] insulin glargine 100 unit/mL (3 mL) subcutaneous pen 27 unit subcut QHS dm 01/18/22 [History Last Taken Unknown] menthol 4 % topical gel (Biofreeze (menthol)) 1 applic topical BID PRN pain 01/18/22 [History Last Taken Unknown] ondansetron HCl 4 mg tablet 4 mg PO Q6H PRN nausea and vomiting 01/18/22 [ History Last Taken Unknown] semaglutide 0.25 mg or 0.5 mg (2 mg/1.5 mL) subcutaneous pen injector 0.5 mg subcut QWEEK 01/18/22 [History Last Taken 09/29/23] albuterol sulfate 2.5 mg/3 mL (0.083 %) solution for nebulization 2.5 mg inhalation Q4H 08/22/22 [History Last Taken Unknown] acetaminophen 325 mg tablet 650 mg PO Q4H PRN Mild pain 1-3/Temp > 100.7 F 05/28/23 [History Last Taken Unknown] bisacodyl 10 mg rectal suppository (Dulcolax (bisacodyl)) 10 mg GA DAILY 05/28/23 [History Last Taken Unknown] dextrose 40 % oral gel (Glucose Gel) 15 g PO Q15M PRN hypoglycemia 05/28/23 [History Last Taken Unknown] glucagon HCl 1 mg solution for injection (Glucagon (HCl) Emergency Kit) 1 mg subcut Q15M PRN hypoglycemia 05/28/23 [History Last Taken Unknown] insulin aspart U-100 100 unit/mL subcutaneous solution (Novolog U-100 Insulin aspart) 1 sliding scale dose subcut USEASDIRECTD 05/28/23 [History Last Taken Unknown] magnesium hydroxide 400 mg/5 mL oral suspension (Almanza Milk of Magnesia) 30 ml PO DAILY PRN constipation 05/28/23 [History Last Taken Unknown] mineral oil (Fleet Mineral Oil enema) 118 ml GA DAILY PRN constipation 05/28/23 [History Last Taken Unknown] warfarin 2 mg tablet 2 mg PO DAILY 05/28/23 [History Last Taken Unknown] cephalexin 500 mg capsule 500 mg PO Q6H 10/05/23 [History Last Taken 10/05/23] melatonin 5 mg tablet 5 mg PO QHS 10/05/23 [History Last Taken Unknown] Allergy/AdvReac Type Severity Reaction Status Date / Time levofloxacin [From Levaquin] Allergy Hives Verified 10/05/23 13:18 Iodinated Contrast Media AdvReac Swelling Verified 10/05/23 13:18 [CONTRASTS] Family History Father Heart disease Myocardial infarction Cancer prostate Diabetes A-fib Mother CVA (cerebral vascular accident) Myocardial infarction CAD (coronary artery disease) Surgical History History of appendectomy History of coronary artery bypass surgery (~2003) History of mitral valve replacement with mechanical valve (~2003) Presence of coronary angioplasty implant and graft (~07/20/16) Social History household members: none housing: [facility] Smoking Status: Former smoker Tobacco: How many years used: 40 how long ago did patient quit smokin, 1ppd second hand exposure: Yes alcohol intake: never substance use type: does not use caffeine: Yes Type: coffee Number of servings: 2 ROS Constitutional Constitutional: Reports chills, malaise and weakness; Denies anorexia, change in weight, fatigue, fever(s), night sweats or other Eyes Eyes: Denies blurry vision, change in eye color, change in vision, discharge from eye(s), double vision, erythema, eye pain, loss of vision or other ENT HEENT: Denies abnormal hearing, dysphagia, ear pain, epistaxis, headache(s), hearing loss, nasal congestion, nasal discharge, post nasal drip, sinus pressure, sore throat or other Cardiovascular Cardiovascular: Denies chest pain, claudication, dyspnea on exertion, edema, lightheadedness, orthopnea, palpitations, paroxysmal nocturnal dyspnea, rapid heart rate, syncope or other Respiratory/Chest Respiratory/Chest: Reports cough, shortness of breath at rest and shortness of breath with exertion; Denies dyspnea, excessive phlegm production, hemoptysis, productive cough, wheezing or other Gastrointestinal Gastrointestinal: Reports abdominal pain; Denies coffee ground emesis, constipation, diarrhea, dyspepsia, hematemesis, hematochezia, loose stools, frederick skyler, nausea, vomiting or other Genitourinary Genitourinary: Denies burning urination, difficulty urinating, dysuria, hematuria, nocturia, urinary frequency, urinary hesitancy, urinary incontinence, urinary urgency or other Musculoskeletal Musculoskeletal: Reports other Details: Left leg pain Integumentary Integumentary: Reports lesions, rash and wounds; Denies dry skin, jaundice, new lesions, pruritus or other Neurologic Neurologic: Denies abnormal gait, abnormal speech, confusion, disequilibrium, d izziness, focal weakness, headache(s), numbness, paresthesias, seizure-like activity, seizures, syncope, tingling, tremor(s) or other Psychiatric Psychiatric: Denies anxiety, depression, homicidal ideation, suicidal ideation or other Endocrine Endocrinology: Denies change in body appearance, cold intolerance, excessive sweating, heat intolerance, polydipsia, polyuria or other Hematologic/Lymphatic Hematologic/Lymphatic: Denies anemia, easy bleeding, easy bruising, lymphadenopathy or other Allergic/Immunologic Allergic/Immunologic: Denies rhinitis, hives, eczemia, asthma or other Vital Signs Vital Signs Vital Signs: 10/05/23 13:24 10/05/23 15:33 10/05/23 16:04 Temperature 97.3 F L 98 F Temperature Source Temporal Pulse Rate 101 H 103 H 97 Respiratory Rate 26 H 16 24 H Blood Pressure 105/70 116/73 111/87 H Blood Pressure Mean 81 87 95 Pulse Ox 91 96 93 Oxygen Delivery Method Room Air Nasal Cannula Oxygen Flow Rate (L/min) 3.5 10/05/23 15:57 Temperature Temperature Source Pulse Rate 101 H Respiratory Rate 24 H Blood Pressure 111/87 H Blood Pressure Mean 95 Pulse Ox 97 Oxygen Delivery Method Oxygen Flow Rate (L/min) Weight Weight: 106.4 kg Body Mass Index (BMI) 45.8 Physical Exam Const alert, oriented x3 and well nourished; Negative for no apparent distress, aver age body habitus or healthy appearing Constitutional Narrative: Morbidly obese, older, white female, lying in bed, covered in multiple blankets due to chills, appears ill but not toxic, nursing at bedside General Appearance: cooperative HEENT normocephalic, head/scalp atraumatic, hearing grossly normal bilaterally and moist oral mucous membranes HEENT Narrative: Mallampati 3-4, no thrush Eyes PERRL, EOMs intact bilaterally and conjunctivae normal Eyes Narrative: No scleral icterus Neck no lymphadenopathy and supple Neck Narrative: Trachea midline, no thyroid enlargement, neck is short and thick Resp normal respiratory effort, no retractions, no use of accessory muscles and clear to auscultation bilaterally Resp Narrative: Diffusely diminished but clear Auscultation: Negative for rales, rhonchi or wheezes Cardio regular rhythm, S1 normal heart sound, S2 normal heart sound, no murmurs, no rub, no gallops and no clicks Cardio Narrative: Mild tachycardia GI normal to inspection, nondistended, normoactive bowel sounds and soft to palpation; Negative for non-tender GI Narrative: Mild tenderness left side of mid abdomen Extremity Extremity Narrative: No cyanosis or clubbing, trace bilateral lower extremity edema Skin Skin Narrative: Significant erythema from the dorsum of the left foot all the way up to just below the left knee and in a triangular patch in the mid calf medially on the right, area is tender and warm to touch, healing wounds noted bilateral lower extremity, bilateral tinea pedis Neuro oriented x3, CN's II-XII intact bilaterally, moves all extremities and no focal motor deficits Neuro Narrative: Generalized weakness noted but no focal deficits Speech: speech normal Psych affect normal Psych Narrative: Very pleasant, eye contact is good, patient interacts appropriately Results Lab / Micro Data 10/05/23 14:41 10/05/23 14:41 Labs: Laboratory Results - last 24 hr 10/05/23 14:41: WBC 10.2, RBC 5.32, Hgb 15.7 H, Hct 50.4 H, MCV 94.7, MCH 29.5, MCHC 31.2 L, RDW Std Deviation 60.0 H, RDW Coeff of Demian 17.6 H, Plt Count 219, MPV 12.1 H, Immature Gran % (Auto) 0.400, Neut % (Auto) 74.8 H, Lymph % (Auto) 13.0 L, [place] % (Auto) 10.0, Eos % (Auto) 0.9, Baso % (Auto) 0.9, Absolute Neuts (auto) 7.7, Absolute Lymphs (auto) 1.33, Nucleated RBC % 0, ESR 28, Sodium 140, Potassium 4.4, Chloride 106, Carbon Dioxide 27.0, Anion Gap 7, BUN 18, Creatinine 1.37 H, Estim Creat Clear Calc 38.53, Est GFR (MDRD) Af Amer 48 L, Est GFR (MDRD) Non-Af 40 L, BUN/Creatinine Ratio 13.1, Glucose 148 H, Calcium 9.4 Assessment & Plan Assessment/Plan (1) Left leg cellulitis: (2) Failure of outpatient treatment: (3) Generalized weakness: (4) Debility: PLAN: Plan Left lower extremity cellulitis with failure of outpatient treatment -Patient has multiple areas of nidus for infection on her distal lower extremities -Failed outpatient Keflex 4 times daily which was started on 10/01/2023 -Blood cultures are pending -Since patient is diabetic at baseline and lives at his facility we will treat with vancomycin and Zosyn to cover MRSA and Pseudomonas to start Generalized weakness/debility -Likely related to the above -PT/OT consultation -Case management/social work consultation for assistance with third planning DM-2 -Blood sugar was 148 on admission -Continue home basal insulin 27 units at at bedtime -Hold semaglutide while admitted -SSI with Accu-Cheks as ordered Hyperlipidemia -Continue home atorvastatin Chronic hypoxic respiratory failure secondary to COPD -Continue home inhalers -Patient on 3-1/2 L at baseline -Continue home as needed guaifenesin for chronic cough -Continue outpatient follow-up with Dr. Garza Allergies -Continue home loratadine History of hypokalemia -Patient is on chronic potassium supplementation in conjunction with her diuresis -Will continue 20 mill equivalents p.o. potassium daily -Repeat BMP in a.m. CKD stage IIIb -Baseline serum creatinine appears to run between 1.15 and 1.4 -Serum creatinine mission was 1.37 -No need to hold any home medications -Monitor saturations -Avoid nephrotoxins as possible Chronic diastolic heart failure/pulmonary hypertension -Who group 2 secondary to lung disease -Continue home Lasix Persistent atrial fibrillation -Patient is currently in normal sinus rhythm -INR on admission was 3.2 -Will hold Coumadin -Repeat INR in a.m. Nonobstructive CAD -Patient is not on baseline aspirin -Continue addressing secondary risk factors History of tobacco abuse -Remote DVT prophylaxis -Patient is on full anticoagulation with Coumadin -INR is currently therapeutic at 3.2 CODE STATUS -Full code is verified on admission Charges/Coding Visit Charges Inpatient E&M: 17160 Init Hosp L2
--- OUTSIDE RECORDS SUMMARY | 2023-10-05 17:50 | XMS RPT_ITS | CCD ---
Author Name Unknown Address [facility] [place] [address] Organization [facility] Care Team Providers Care Medical Manager Name Role Phone Unavailable Primary Care Provider Unavailabl e Results Test Name Value Interpretation Reference Range Facil ity Encounters Encounter Date Encounter Type Care Provider Facility Start: 01-31-2022 End: 01-31-2022 Subsequent hospital visit by physician [facility] Provider Flip STOLL Procedures Date Procedure Procedure Detail Performing Clinician Start: 01-23-2019 Microscopic examinat ion of blood, culture Payers Date Payer Category Payer Private Health Insurance [facility] AARP SUPPLEMENT [id number] 2018-Present [phone] [address] [place] [address] Indemnity [id number] 2011 Medicare MEDICARE MEDICAR E A AND B [id number] 2011-Present [phone] [address] [address] [place] [address] Medicare [id number] Social History Date Type Detail Facility Tobacco smoking stat [facility] Tobacco smoking consumption unknown [facility] Start: 1945 Sex Assigned At [facility] Purpose Family History No Family History Records FoundNo Family History Records FoundNo Family History Records Found Advance Directives No Advanced Directives Records FoundDocuments on File Type Date 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 Julee Teixeira DATE CREATED AUTHOR AUTHOR'S ORGANIZ ATION 05/21/2022 [facility] Source Comments (unrecognize d section and content) In the event this informatio n is protected by the Federal Confidentiality of Alcohol and Drug Abuse Patient Records regulations: The Federal rules restrict any use of the information to criminally investigate or prosecute any alcohol or drug abuse patient.[facility] FOR RECORDS PERTAINING TO PATIENTS WHO ARE OR HAVE BEEN ENROLLED IN A CHEMICAL DEPENDENCY/SUBSTANCEABUSE PROGRAM, SOME INFORMATION MAY BE OMITTED. This clinical summary was aggregated from multiple sources. Caution should be exercised in using it in the provision of clinical care. This summary normalizes information from multiple sources, and as a consequence, information in this document may materially change the coding, format and clinical context of patient data. In addition, data may be omitted in some cases. CLINICAL DECISIONS SHOULD BE BASED ON THE PRIMARY CLINICAL RECORDS. [facility]. provides no warranty or guarantee of the accuracy or completeness of information in this document.
[2023-10-05 18:18] LABS: International Normalized Ratio 3.2; Prothrombin Time (Protime)PT. 33.4 SECONDS (11.7-14.9)
[2023-10-05] MEDS: Piperacil/Tazobactam 3.375 GM in 0.9% Normal Saline (50mL MB+) 50 ML IV ×2 (18:32→21:41)
[2023-10-05] MEDS: Albuterol 2.5 MG/3 ML VIAL.NEB. INHALATION (19:47)
--- NOTE | 2023-10-05 19:48 | PHA.PHARE_ITS ---
Consult Antibiotic Management Pharmacy has been consulted to manage selected antibiotic: Vancomycin Type of Intervention Type of Consult: New start Suspected Infection Suspected Infection: Skin/Soft tissue Prior Doses of Antibiotics Prior Doses of Antibiotics Received/Current Regimen: Vancomycin 1500 mg IV given 10/05/23 @ 1455, patient is also on piperacillin/tazo bactam 3.375 grams Q8H Labs Labs: Sodium 140 mmol/L (136-145) 10/05/23 14:41 Potassium 4.4 mmol/L (3.5-5.1) 10/05/23 14:41 Chloride 106 mmol/L (98-107) 10/05/23 14:41 Carbon Dioxide 27.0 mmol/L (21.0-32.0) 10/05/23 14:41 Anion Gap 7 (5-15) 10/05/23 14:41 BUN 18 mg/dL (7-18) 10/05/23 14:41 Creatinine 1.37 mg/dL (0.55-1.02) H 10/05/23 14:41 Est GFR (MDRD) Af Amer 48 mL/min (>60) L 10/05/23 14:41 Est GFR (MDRD) Non-Af 40 mL/min (>60) L 10/05/23 14:41 BUN/Creatinine Ratio 13.1 RATIO (10-20) 10/05/23 14:41 Glucose 148 mg/dL (74-106) H 10/05/23 14:41 Dosing Weight Weight used for dosin kg Estimated Creatinine Clearance Estimated Creatinine Clearance: ~39 Goal Trough Goal Trough: 10-15 mcg/mL Pharmacy Plan for Drug Dosing Pharmacy Plan for Drug Dosing: Vancomycin 1500 mg IV x 1 given in ER, subsequent dosing 1000 mg Q24H Pharmacy Service will continue to monitor and adjust dosing as required. Follow-Up Labs Follow-Up Labs: Trough: Vancomycin Date/Time Labs Ordered Labs to be done on [date and time ordered]: 10/07/23 @ 1430
[2023-10-05] MEDS: Acetaminophen 500 MG Tablet 1000 MG PO (21:42)
[2023-10-05] MEDS: MELATONIN 10 MG TABLET 5 MG PO (21:43)
[2023-10-05] MEDS: Atorvastatin Calcium 80 MG Tablet PO (21:43)
[2023-10-05] MEDS: Insulin Glargine-YFGN 100 UNIT/ML Pen 27 UNIT SC (21:44)
[2023-10-06] VITALS (9 sets, daily range): BP systolic 95–105; BP diastolic 62–71; PULSE 86–107; RESP 14–21; TEMP 36.2–36.6; O2SAT 89–96
[2023-10-06 00:37] LABS: Bedside Glucose 129 mg/dL (74-106)
[2023-10-06] MEDS: Piperacil/Tazobactam 3.375 GM in 0.9% Normal Saline (50mL MB+) 50 ML IV ×3 (05:21→23:05)
[2023-10-06] MEDS: Ondansetron 4 MG/2 ML Vial IV ×2 (05:24→23:23)
[2023-10-06 05:45] LABS: Bedside Glucose 128 mg/dL (74-106)
[2023-10-06 06:37] LABS: Absolute Lymphocyte Count 1.25 X10^3/uL (0.83-4.51); Absolute Neutrophil Count 9.2 X10^3/uL (2.0-7.7); Basophil# 0.08 X10^3/uL; Basophil% 0.7 % (0-1); Eosinophil# 0.07 X10^3/uL; Eosinophils% 0.6 % (0-5); Hematocrit 47.4 % (37-47); Hemoglobin 14.6 g/dL (12.0-15.0); Lymphocyte # 1.25 X10^3/ul (0.83-4.51); Lymphocyte % 10.6 % (19-41); Mean Corp Hgb Conc 30.8 g/dL (32-36); Mean Corpuscular Hgb 29.3 pg (27.0-32.0); Mean Platelet Vol. 12.3 fl (6.2-12.0); Monocyte# 1.17 X10^3/uL; Monocyte% 9.9 % (0-10); NRBC Flagged by Analyzer 0 % (0-5); Neutrophil # 9.21 X10^3/uL (2.7-7.7); Neutrophil % 77.8 % (47-70); Platelet Count 193 K/mm3 (150-450); RBC Distribution Width CV 17.6 % (11.6-14.6); RBC Distribution Width SD 59.6 fl (35.1-43.9); Red Blood Count 4.99 M/mm3 (4.2-5.4); White Blood Count 11.8 K/mm3 (4.4-11.0)
[2023-10-06] MEDS: Albuterol 2.5 MG/3 ML VIAL.NEB. INHALATION ×2 (06:53→15:09)
[2023-10-06 07:12] LABS: ALB/GLOB Ratio 0.8 RATIO (0.9-2.4); AST(SGOT) 31 U/L (15-37); Alanine Aminotransfer ALT/SGPT 24 U/L (13-56); Albumin, Serum 2.9 g/dL (3.2-5.0); Alkaline Phosphatase 213 U/L (45-117); Anion Gap 9 (5-15); BUN 20 mg/dL (7-18); BUN/Creat Ratio 14.5 RATIO (10-20); Calcium,Total 9.2 mg/dL (8.5-10.1); Chloride 110 mmol/L (98-107); Creatinine, Serum 1.38 mg/dL (0.55-1.02); EST Glomerular Filtration Rate 39 mL/min (>60); Est Glom Filt Rate - Afr Amer 48 mL/min (>60); Estimated Creatinine Clearance 40.66 ml/min; Globulin 3.6 g/dL (2.2-4.2); Glucose 128 mg/dL (74-106); Magnesium 2.2 mg/dL (1.6-2.6); Phosphorus 3.5 mg/dL (2.5-4.9); Protein, Total 6.5 g/dL (6.4-8.2); Sodium Level 140 mmol/L (136-145)
[2023-10-06] MEDS: Menthol/Lanolin/Calamine/Znox 113 GM Tube 1 APPLIC TOPICAL ×2 (09:10→22:53)
[2023-10-06] MEDS: Loratadine 10 MG Tablet PO (09:11)
[2023-10-06] MEDS: Bisacodyl 10 MG Suppository RC (09:12)
[2023-10-06] MEDS: Furosemide 40 MG Tablet PO (09:13)
[2023-10-06] MEDS: Potassium Chloride Oral Tablet 20 MEQ PO (09:13)
[2023-10-06] MEDS: Nystatin Powder 15gm Bottle 1 APPLIC TOPICAL ×2 (09:14→22:56)
[2023-10-06] MEDS: Cholecalciferol (VIT D3) 25 MCG TABLET (1,000 UNITS) PO (09:15)
--- NOTE | 2023-10-06 09:52 | PCM.PN.HOSP ---
Subjective Subjective Doing well, no issues overnight. Has little bit of a decreased appetite Objective Data Objective Data Vital Signs: Vital Signs Temp Pulse Resp BP Pulse Ox O2 Del Method O2 Flow Rate 97.8 F 97 16 103/68 94 Nasal Cannula 3 10/06/23 08:52 10/06/23 08:52 10/06/23 08:52 10/06/23 08:52 10/06/23 08:52 10/06/23 08:57 10/06/23 08:57 Oxygen Flow Rate (L/min) 3 Oxygen Delivery Method Nasal Cannula Weight: 228 lb 6.382 oz Body Mass Index (BMI) 39.2 Intake & Output: Intake and Output for Last 24 Hours 10/05/23 10/06/23 10/07/23 03:59 03:59 03:59 Intake Total 1280 / 1280 Balance 1280 / 1280 Lab / Micro Data 10/06/23 05:13 10/06/23 05:13 Labs: Laboratory Results - last 24 hr 10/05/23 14:41: WBC 10.2, RBC 5.32, Hgb 15.7 H, Hct 50.4 H, MCV 94.7, MCH 29.5, MCHC 31.2 L, RDW Std Deviation 60.0 H, RDW Coeff of Demian 17.6 H, Plt Count 219, MPV 12.1 H, Immature Gran % (Auto) 0.400, Neut % (Auto) 74.8 H, Lymph % (Auto) 13.0 L, [place] % (Auto) 10.0, Eos % (Auto) 0.9, Baso % (Auto) 0.9, Absolute Neuts (auto) 7.7, Absolute Lymphs (auto) 1.33, Nucleated RBC % 0, ESR 28, Sodium 140, Potassium 4.4, Chloride 106, Carbon Dioxide 27.0, Anion Gap 7, BUN 18, Creatinine 1.37 H, Estim Creat Clear Calc 38.53, Est GFR (MDRD) Af Amer 48 L, Est GFR (MDRD) Non-Af 40 L, BUN/Creatinine Ratio 13.1, Glucose 148 H, Calcium 9.4, C-React Prot Ext Range 12.80 H 10/05/23 17:30: PT 33.4 H, INR 3.2 10/05/23 21:38: POC Glucose 129 H 10/06/23 05:13: WBC 11.8 H, RBC 4.99, Hgb 14.6, Hct 47.4 H, MCV 95.0, MCH 29.3, MCHC 30.8 L, RDW Std Deviation 59.6 H, RDW Coeff of Demian 17.6 H, Plt Count 193, MPV 12.3 H, Immature Gran % (Auto) 0.400, Neut % (Auto) 77.8 H, Lymph % (Auto) 10.6 L, [place] % (Auto) 9.9, Eos % (Auto) 0.6, Baso % (Auto) 0.7, Absolute Neuts (auto) 9.2 H, Absolute Lymphs (auto) 1.25, Nucleated RBC % 0, Sodium 140, Potassium 4.0, Chloride 110 H, Carbon Dioxide 21.0, Anion Gap 9, BUN 20 H, Creatinine 1.38 H, Estim Creat Clear Calc 40.66, Est GFR (MDRD) Af Amer 48 L, Est GFR (MDRD) Non-Af 39 L, BUN/Creatinine Ratio 14.5, Glucose 128 H, Calcium 9.2, Phosphorus 3.5, Magnesium 2.2, Total Bilirubin 2.20 H, AST 31, ALT 24, Alkaline Phosphatase 213 H, Total Protein 6.5, Albumin 2.9 L, Globulin 3.6, Albumin/Globulin Ratio 0.8 L 10/06/23 05:19: POC Glucose 128 H Physical Exam Narrative General: Alert, Oriented x3, Cooperative, No apparent distress HEENT: Atraumatic, PERRLA, EOMI, Normocephalic Oral: Moist Mucosa Neck: Supple, No JVD Lungs: Diminished, Normal air movement, No rhonchi, No wheeze, No rales Cardiovascular: Regular rate, Regular Rhythm, Normal S1, Normal S2, No murmurs Abdomen: Soft, Non Tender, Non-Distended, No Hepato-splenomegaly Extremities: No edema, Capillary Refill Less than 3 Seconds Skin: Erythema on her left lower extremity has not passed marking Musculoskeletal: No Tenderness to Palpation of Joints or Extremities Neurological: No focal neurological deficits, Motor Exam 5/5 strength throughout, Sensory exam intact to light touch and pain Psych/Mental Status: Normal Affect, Appropriate Assessment & Plan Assessment/Plan (1) Left leg cellulitis: (2) Failure of outpatient treatment: (3) Generalized weakness: (4) Debility: PLAN: Plan 1. Left lower extremity cellulitis with failure of outpatient antibiotics/debility ? Continue with IV antibiotics, will broaden spectrum since [facility] ? Blood cultures are pending ?White blood cell count today is 11.8 ? PT/OT 2. Essential HTN/HLD/persistent A-fib with nonobstructive CAD/chronic diastolic CHF with pulmonary hypertension ? Blood pressures are stable ? Can continue with her home medications ? We will monitor make adjustments as necessary ? INR on admission was 3.2, will recheck in the morning and make adjustments 3. DM2/CKD 3B ? Hold her home medications ? Continue with insulin ? Accu-Cheks ACHS ? We will monitor make adjustments as necessary ? Renal function is at baseline 4. Chronic hypoxic respiratory failure secondary to COPD ? Stable ? Oxygen requirements are at baseline ? Will continue to monitor DVT: Therapeutic INR Charges/Coding Visit Charges Inpatient E&M: 71562 Subs Hosp L2
[2023-10-06 11:44] LABS: Bedside Glucose 144 mg/dL (74-106)
--- NOTE | 2023-10-06 14:37 | CASEMGMT ---
Social Work SW spoke w/RN, pt is forgetful. SW called daughter Viki who is listed as POA. SW confirmed the discharge plan will be for pt to return to [facility] when ready, [facility] is there [facility] the jail side. SNF list is not needed. JASON sent updates to [facility] via [facility] L[facility]zma states pt can return any time. Green sheet w/transport forms placed on chart in the event pt can be discharged on the weekend back to [facility]. LEANDRO Mitchell
--- NOTE | 2023-10-06 14:40 | CASEMGMT ---
Social Work SW asked via [facility] for [facility] to send over LW/POA papers should they have them. LEANDRO Mitchell
--- NOTE | 2023-10-06 15:11 | CPS ---
Pt unable to tolerate aerosol, says it is making her nauseous. This RT will contact Dr Gómez, pt takes tx prn @home.
[2023-10-06] MEDS: Vancomycin IV 1,000 MG/200 ML BAG 200 MG IV (15:17)
[2023-10-06] MEDS: Insulin Lispro 100 UNIT/ML INSULN.PEN SC (16:48)
[2023-10-06 17:16] LABS: Bedside Glucose 165 mg/dL (74-106)
[2023-10-06] MEDS: Budesonide Respules 0.5 MG/2 ML AMPUL.NEB. INHALATION (19:23)
[2023-10-06] MEDS: Acetaminophen 500 MG Tablet 1000 MG PO (22:54)
[2023-10-06] MEDS: MELATONIN 10 MG TABLET 5 MG PO (22:55)
[2023-10-06] MEDS: Atorvastatin Calcium 80 MG Tablet PO (22:55)
[2023-10-06] MEDS: Insulin Glargine-YFGN 100 UNIT/ML Pen 27 UNIT SC (23:11)
[2023-10-06 23:48] LABS: Bedside Glucose 141 mg/dL (74-106)
[2023-10-07 04:00] VITALS: BP 93/62; PULSE 108; RESP 16; TEMP 36.2; O2SAT 93
[2023-10-07 05:28] LABS: Absolute Lymphocyte Count 1.68 X10^3/uL (0.83-4.51); Absolute Neutrophil Count 8.1 X10^3/uL (2.0-7.7); Basophil# 0.09 X10^3/uL; Basophil% 0.8 % (0-1); Eosinophil# 0.07 X10^3/uL; Eosinophils% 0.6 % (0-5); Hematocrit 46.5 % (37-47); Hemoglobin 14.5 g/dL (12.0-15.0); Lymphocyte # 1.68 X10^3/ul (0.83-4.51); Lymphocyte % 15.1 % (19-41); Mean Corp Hgb Conc 31.2 g/dL (32-36); Mean Corpuscular Hgb 29.7 pg (27.0-32.0); Mean Corpuscular Volume 95.1 fL (81-99); Mean Platelet Vol. 12.1 fl (6.2-12.0); Monocyte# 1.17 X10^3/uL; Monocyte% 10.5 % (0-10); NRBC Flagged by Analyzer 0 % (0-5); Neutrophil # 8.09 X10^3/uL (2.7-7.7); Neutrophil % 72.7 % (47-70); Platelet Count 192 K/mm3 (150-450); RBC Distribution Width CV 17.3 % (11.6-14.6); RBC Distribution Width SD 59.5 fl (35.1-43.9); Red Blood Count 4.89 M/mm3 (4.2-5.4); White Blood Count 11.1 K/mm3 (4.4-11.0)
[2023-10-07 05:44] LABS: Anion Gap 8 (5-15); BUN 26 mg/dL (7-18); BUN/Creat Ratio 15.3 RATIO (10-20); Calcium,Total 8.7 mg/dL (8.5-10.1); Chloride 107 mmol/L (98-107); EST Glomerular Filtration Rate 31 mL/min (>60); Est Glom Filt Rate - Afr Amer 38 mL/min (>60); Glucose 107 mg/dL (74-106); Potassium 4.1 mmol/L (3.5-5.1); Sodium Level 138 mmol/L (136-145)
[2023-10-07] MEDS: Piperacil/Tazobactam 3.375 GM in 0.9% Normal Saline (50mL MB+) 50 ML IV ×3 (05:56→20:07)
[2023-10-07] MEDS: Acetaminophen 500 MG Tablet 1000 MG PO ×3 (05:56→20:07)
[2023-10-07 06:02] LABS: International Normalized Ratio 3.9; Prothrombin Time (Protime)PT. 38.7 SECONDS (11.7-14.9)
[2023-10-07 07:58] LABS: Bedside Glucose 147 mg/dL (74-106)
[2023-10-07 08:09] VITALS: BP 120/71; PULSE 73; RESP 16; TEMP 36.6; O2SAT 94
--- NOTE | 2023-10-07 08:57 | PN.HOSP_ITS ---
Subjective Subjective Doing well, no issues overnight. Redness in the legs of remains the same Objective Data Objective Data Vital Signs: Vital Signs Temp Pulse Resp BP Pulse Ox O2 Del Method O2 Flow Rate 97.9 F 73 16 120/71 94 Nasal Cannula 4 10/07/23 08:09 10/07/23 08:09 10/07/23 08:09 10/07/23 08:09 10/07/23 08:09 10/07/23 08:15 10/07/23 08:15 Oxygen Flow Rate (L/min) 4 Oxygen Delivery Method Nasal Cannula Weight: 228 lb 6.382 oz Body Mass Index (BMI) 39.2 Intake & Output: Intake and Output for Last 24 Hours 10/06/23 10/07/23 10/08/23 03:59 03:59 03:59 Intake Total 1280 / 1280 500 / 500 290 / 290 Balance 1280 / 1280 500 / 500 290 / 290 Lab / Micro Data 10/07/23 05:06 10/07/23 05:06 Labs: Laboratory Results - last 24 hr 10/06/23 11:04: POC Glucose 144 H 10/06/23 16:45: POC Glucose 165 H 10/06/23 23:09: POC Glucose 141 H 10/07/23 05:06: WBC 11.1 H, RBC 4.89, Hgb 14.5, Hct 46.5, MCV 95.1, MCH 29.7, MCHC 31.2 L, RDW Std Deviation 59.5 H, RDW Coeff of Demian 17.3 H, Plt Count 192, MPV 12.1 H, Immature Gran % (Auto) 0.300, Neut % (Auto) 72.7 H, Lymph % (Auto) 15.1 L, [place] % (Auto) 10.5 H, Eos % (Auto) 0.6, Baso % (Auto) 0.8, Absolute Neuts (auto) 8.1 H, Absolute Lymphs (auto) 1.68, Nucleated RBC % 0, PT 38.7 H, INR 3.9, Sodium 138, Potassium 4.1, Chloride 107, Carbon Dioxide 23.0, Anion Gap 8, BUN 26 H, Creatinine 1.70 H, Estim Creat Clear Calc 33.00, Est GFR (MDRD) Af Amer 38 L, Est GFR (MDRD) Non-Af 31 L, BUN/Creatinine Ratio 15.3, Glucose 107 H, Calcium 8.7 10/07/23 07:39: POC Glucose 147 H Physical Exam Narrative General: Alert, Oriented x3, Cooperative, No apparent distress HEENT: Atraumatic, PERRLA, EOMI, Normocephalic Oral: Moist Mucosa Neck: Supple, No JVD Lungs: Diminished, Normal air movement, No rhonchi, No wheeze, No rales Cardiovascular: Regular rate, Regular Rhythm, Normal S1, Normal S2, No murmurs Abdomen: Soft, Non Tender, Non-Distended, No Hepato-splenomegaly Extremities: No edema, Capillary Refill Less than 3 Seconds Skin: Erythema on her left lower extremity has not passed marking Musculoskeletal: No Tenderness to Palpation of Joints or Extremities Neurological: No focal neurological deficits, Motor Exam 5/5 strength throughout, Sensory exam intact to light touch and pain Psych/Mental Status: Normal Affect, Appropriate Assessment & Plan Assessment/Plan (1) Left leg cellulitis: (2) Failure of outpatient treatment: (3) Generalized weakness: (4) Debility: PLAN: Plan 1. Left lower extremity cellulitis with failure of outpatient antibiotics/debility ? Continue with IV antibiotics, will broaden spectrum [facility] ? Blood cultures are pending ?White blood cell count today is 11.1 ? PT/OT 2. Essential HTN/HLD/persistent A-fib with nonobstructive CAD/chronic diastolic CHF with pulmonary hypertension ? Blood pressures are stable ? Can continue with her home medications, will hold Lasix today secondary to a slight bump in creatinine to 1.7 ? We will monitor make adjustments as necessary ? INR on admission was 3.2, will recheck in the morning and make adjustments 3. DM2/CKD 3B ? Hold her home medications ? Continue with insulin ? Accu-Cheks ACHS ? We will monitor make adjustments as necessary ? Renal function is at baseline 4. Chronic hypoxic respiratory failure secondary to COPD ? Stable ? Oxygen requirements are at baseline ? Will continue to monitor DVT: Therapeutic INR Charges/Coding Visit Charges Inpatient E&M: 93601 Subs Hosp L2
[2023-10-07] MEDS: Potassium Chloride Oral Tablet 20 MEQ PO (09:54)
[2023-10-07] MEDS: Bisacodyl 10 MG Suppository RC (09:54)
[2023-10-07] MEDS: Cholecalciferol (VIT D3) 25 MCG TABLET (1,000 UNITS) PO (09:54)
[2023-10-07] MEDS: Nystatin Powder 15gm Bottle 1 APPLIC TOPICAL ×2 (09:54→20:06)
[2023-10-07] MEDS: Loratadine 10 MG Tablet PO (09:55)
[2023-10-07] MEDS: Menthol/Lanolin/Calamine/Znox 113 GM Tube 1 APPLIC TOPICAL ×2 (09:55→20:06)
[2023-10-07 11:54] LABS: Bedside Glucose 185 mg/dL (74-106)
[2023-10-07] MEDS: Insulin Lispro 100 UNIT/ML INSULN.PEN SC (13:06)
[2023-10-07 14:55] VITALS: BP 94/66; PULSE 89; RESP 16; TEMP 36.7; O2SAT 95
[2023-10-07 16:13] LABS: Vancomycin, Trough Level 19.6 ug/mL (5.0-15.0)
--- NOTE | 2023-10-07 16:25 | PCM.RX.CS ---
Consult Antibiotic Management Pharmacy has been consulted to manage selected antibiotic: Vancomycin Type of Intervention Type of Consult: Follow-up Labs Labs: Sodium 138 mmol/L (136-145) 10/07/23 05:06 Potassium 4.1 mmol/L (3.5-5.1) 10/07/23 05:06 Chloride 107 mmol/L (98-107) 10/07/23 05:06 Carbon Dioxide 23.0 mmol/L (21.0-32.0) 10/07/23 05:06 Anion Gap 8 (5-15) 10/07/23 05:06 BUN 26 mg/dL (7-18) H 10/07/23 05:06 Creatinine 1.70 mg/dL (0.55-1.02) H 10/07/23 05:06 Est GFR (MDRD) Af Amer 38 mL/min (>60) L 10/07/23 05:06 Est GFR (MDRD) Non-Af 31 mL/min (>60) L 10/07/23 05:06 BUN/Creatinine Ratio 15.3 RATIO (10-20) 10/07/23 05:06 Glucose 107 mg/dL (74-106) H 10/07/23 05:06 Vancomycin Trough 19.6 ug/mL (5.0-15.0) H 10/07/23 14:47 Goal Trough Goal Trough: 15-20 mcg/mL Pharmacy Plan for Drug Dosing Pharmacy Plan for Drug Dosing: VANCOMYCIN LEVEL RECEIVED Current Vancomycin Dose: 1000mg IV Q24hr Number of Doses Received: 2 (initial + 1 scheduled) Vancomycin Level: 19.6 Hours Since Last Dose: 23.5hr Renal Function: 1.7 Renal Function Trend: increase from admission labs (SCr was at that time) Lab/Micro: Cx data pending Vancomycin Plan/Comments: Patient had a trough drawn which resulted in a value of 19.6 (Goal 15-20). Patient is currently within therapeutic range, will continue current dose of vancomycin 1000mg IV Q24hr. Will have to continue to monitor renal function carefully. Should SCr continue to increase, would consider obtaining a random level and holding subsequent doses of vancomycin to ensure patient stays therapeutic. Pending Level: 10/09/23 @1430 Pharmacy Service will continue to monitor and adjust dosing as required.
[2023-10-07] MEDS: Vancomycin IV 1,000 MG/200 ML BAG 200 MG IV (16:51)
[2023-10-07] MEDS: Vancomycin Trough/Random Due 1 LAB MC (17:12)
[2023-10-07 17:20] LABS: Bedside Glucose 83 mg/dL (74-106)
[2023-10-07 19:52] VITALS: O2SAT 92
[2023-10-07] MEDS: MELATONIN 10 MG TABLET 5 MG PO (20:06)
[2023-10-07] MEDS: Atorvastatin Calcium 80 MG Tablet PO (20:06)
[2023-10-07] MEDS: Insulin Glargine-YFGN 100 UNIT/ML Pen 27 UNIT SC (20:21)
[2023-10-07 20:30] VITALS: BP 117/62; PULSE 102; RESP 18; TEMP 36.1; O2SAT 94
[2023-10-07 22:54] LABS: Bedside Glucose 104 mg/dL (74-106)
[2023-10-08] VITALS (8 sets, daily range): BP systolic 104–132; BP diastolic 67–90; PULSE 90–103; RESP 16–18; TEMP 36.2–36.6; O2SAT 88–100
[2023-10-08] MEDS: Acetaminophen 500 MG Tablet 1000 MG PO ×3 (04:45→20:28)
[2023-10-08] MEDS: Magnesium Hydroxide 30 ML UDC PO (04:45)
[2023-10-08] MEDS: Ondansetron 4 MG/2 ML Vial IV ×2 (04:45→20:29)
[2023-10-08] MEDS: Piperacil/Tazobactam 3.375 GM in 0.9% Normal Saline (50mL MB+) 50 ML IV ×3 (04:45→20:27)
[2023-10-08 06:27] LABS: Absolute Lymphocyte Count 1.15 X10^3/uL (0.83-4.51); Absolute Neutrophil Count 9.6 X10^3/uL (2.0-7.7); Basophil# 0.07 X10^3/uL; Basophil% 0.6 % (0-1); Eosinophil# 0.09 X10^3/uL; Eosinophils% 0.7 % (0-5); Hematocrit 44.4 % (37-47); Hemoglobin 13.7 g/dL (12.0-15.0); Lymphocyte # 1.15 X10^3/ul (0.83-4.51); Lymphocyte % 9.5 % (19-41); Mean Corp Hgb Conc 30.9 g/dL (32-36); Mean Corpuscular Hgb 29.3 pg (27.0-32.0); Mean Corpuscular Volume 94.9 fL (81-99); Monocyte# 1.13 X10^3/uL; Monocyte% 9.4 % (0-10); NRBC Flagged by Analyzer 0.2 % (0-5); Neutrophil # 9.59 X10^3/uL (2.7-7.7); Neutrophil % 79.5 % (47-70); Platelet Count 184 K/mm3 (150-450); RBC Distribution Width CV 17.4 % (11.6-14.6); Red Blood Count 4.68 M/mm3 (4.2-5.4); White Blood Count 12.1 K/mm3 (4.4-11.0)
[2023-10-08 06:41] LABS: Bedside Glucose 94 mg/dL (74-106)
[2023-10-08 06:42] LABS: Anion Gap 7 (5-15); BUN 27 mg/dL (7-18); BUN/Creat Ratio 16.7 RATIO (10-20); Calcium,Total 8.6 mg/dL (8.5-10.1); Chloride 106 mmol/L (98-107); Creatinine, Serum 1.62 mg/dL (0.55-1.02); EST Glomerular Filtration Rate 33 mL/min (>60); Est Glom Filt Rate - Afr Amer 40 mL/min (>60); Estimated Creatinine Clearance 34.63 ml/min; Glucose 65 mg/dL (74-106); Potassium 3.8 mmol/L (3.5-5.1); Sodium Level 137 mmol/L (136-145)
[2023-10-08 06:47] LABS: International Normalized Ratio 4.7
[2023-10-08] MEDS: Budesonide Respules 0.5 MG/2 ML AMPUL.NEB. INHALATION ×2 (07:11→18:59)
[2023-10-08] MEDS: Potassium Chloride Oral Tablet 20 MEQ PO (09:06)
[2023-10-08] MEDS: Nystatin Powder 15gm Bottle 1 APPLIC TOPICAL ×2 (09:06→20:28)
[2023-10-08] MEDS: Cholecalciferol (VIT D3) 25 MCG TABLET (1,000 UNITS) PO (09:06)
[2023-10-08] MEDS: Loratadine 10 MG Tablet PO (09:06)
[2023-10-08] MEDS: Menthol/Lanolin/Calamine/Znox 113 GM Tube 1 APPLIC TOPICAL ×2 (09:08→20:29)
--- NOTE | 2023-10-08 09:36 | US_ITS ---
STUDY: ABDOMINAL ULTRASOUND - RIGHT UPPER QUADRANT REASON FOR VISIT: Female, 78 years old elevated bilirubin TECHNIQUE: Ultrasound evaluation of the right upper quadrant was performed with real-time and static tineo-scale imaging. TECHNICAL QUALITY: Adequate. COMPARISON: None. FINDINGS: Liver: The liver measures 17.8 cm. There is diffusely increased echogenicity of the liver. The bile ducts are within normal limits. There is hepatic color flow. The direction of portal flow is hepatopetal. There is no demonstrated mass lesion. Gallbladder: Normal distended gallbladder. The gallbladder wall measures 4.4 mm. There is a positive sonographic Howe''s sign. There is no pericholecystic fluid. There are multiple gallstones. Common Bile Duct (C.B.D.): The common bile duct measures 3.1 mm. Pancreas: Normal size of the head, body and tail of the pancreas. There is normal echogenicity of the pancreas. There is no demonstrated pancreatic mass or cyst. Right Kidney: Normal size of the right kidney. The right kidney measures 9.7 x 4.1 x 3.7 cm. Normal renal cortex. The right cortex measures 9 cm. There is no demonstrated renal mass or cyst. There is no right hydronephrosis. US/Liver IMPRESSION: Nonspecific fatty infiltrated liver Findings consistent with gallstones and acute cholecystitis. This may be further confirmed with HIDA scan if clinically warranted. Electronically Signed: Shreyas Lake MD at 17:56 EST ,
--- NOTE | 2023-10-08 09:37 | PN.HOSP_ITS ---
Subjective Subjective Doing well, no issues overnight. Her redness has not advanced but her white count did climb a little bit unclear why Objective Data Objective Data Vital Signs: Vital Signs Temp Pulse Resp BP Pulse Ox O2 Del Method O2 Flow Rate 97.3 F L 97 16 107/84 H 95 Nasal Cannula 4 10/08/23 07:35 10/08/23 07:35 10/08/23 07:35 10/08/23 07:35 10/08/23 07:35 10/08/23 07:35 10/08/23 07:35 Oxygen Flow Rate (L/min) 4 Oxygen Delivery Method Nasal Cannula Weight: 228 lb 6.382 oz Body Mass Index (BMI) 39.2 Intake & Output: Intake and Output for Last 24 Hours 10/07/23 10/08/23 10/09/23 03:59 03:59 03:59 Intake Total 500 / 500 640 / 640 50 / 50 Balance 500 / 500 640 / 640 50 / 50 Lab / Micro Data 10/08/23 05:31 10/08/23 05:31 Labs: Laboratory Results - last 24 hr 10/07/23 11:33: POC Glucose 185 H 10/07/23 14:47: Vancomycin Trough 19.6 H 10/07/23 16:48: POC Glucose 83 10/07/23 20:23: POC Glucose 104 10/08/23 05:31: WBC 12.1 H, RBC 4.68, Hgb 13.7, Hct 44.4, MCV 94.9, MCH 29.3, MCHC 30.9 L, RDW Std Deviation 59.0 H, RDW Coeff of Demian 17.4 H, Plt Count 184, MPV 12.0, Immature Gran % (Auto) 0.300, Neut % (Auto) 79.5 H, Lymph % (Auto) 9.5 L, [place] % (Auto) 9.4, Eos % (Auto) 0.7, Baso % (Auto) 0.6, Absolute Neuts (auto) 9.6 H, Absolute Lymphs (auto) 1.15, Nucleated RBC % 0.2, PT 45.0 H, INR 4.7 H*, Sodium 137, Potassium 3.8, Chloride 106, Carbon Dioxide 24.0, Anion Gap 7, BUN 27 H, Creatinine 1.62 H, Estim Creat Clear Calc 34.63, Est GFR (MDRD) Af Amer 40 L, Est GFR (MDRD) Non-Af 33 L, BUN/Creatinine Ratio 16.7, Glucose 65 L, Calcium 8.6 10/08/23 06:20: POC Glucose 94 Micro: Microbiology 10/05/23 17:30 Blood Culture (Wb) - Anticubital Right Blood Culture - Preliminary No growth in 48 hours. 10/05/23 17:43 Blood Culture (Wb) - Arm Right Blood Culture - Preliminary No growth in 48 hours. Physical Exam Narrative General: Alert, Oriented x3, Cooperative, No apparent distress HEENT: Atraumatic, PERRLA, EOMI, Normocephalic Oral: Moist Mucosa Neck: Supple, No JVD Lungs: Diminished, Normal air movement, No rhonchi, No wheeze, No rales Cardiovascular: Regular rate, Regular Rhythm, Normal S1, Normal S2, No murmurs Abdomen: Soft, Non Tender, Non-Distended, No Hepato-splenomegaly Extremities: No edema, Capillary Refill Less than 3 Seconds Skin: Erythema on her left lower extremity has not passed marking Musculoskeletal: No Tenderness to Palpation of Joints or Extremities Neurological: No focal neurological deficits, Motor Exam 5/5 strength throughout, Sensory exam intact to light touch and pain Psych/Mental Status: Normal Affect, Appropriate Assessment & Plan Assessment/Plan (1) Left leg cellulitis: (2) Failure of outpatient treatment: (3) Generalized weakness: (4) Debility: PLAN: Plan 1. Left lower extremity cellulitis with failure of outpatient antibiotics/debility ? Continue with IV antibiotics, will broaden spectrum since [facility] ? Blood cultures are negative ?White blood cell count today is 12.1 ? PT/OT ? Given the rise in her white count and the fact that her redness has not significantly retreated from the markings on her legs, will obtain another CRP may need to consult infectious disease if there is continued worsening of her white count tomorrow 2. Essential HTN/HLD/persistent A-fib with nonobstructive CAD/chronic diastolic CHF with pulmonary hypertension ? Blood pressures are stable ? Can continue with her home medications, will hold Lasix today secondary to a slight bump in creatinine to 1.7 ? We will monitor make adjustments as necessary ? INR on admission was 3.2, will recheck in the morning and make adjustments ? Her INR continues to climb, could be interaction from antibiotics despite being off of Coumadin for 4 days. Total bilirubin was elevated so we will also obtain a liver ultrasound 3. DM2/CKD 3B ? Hold her home medications ? Continue with insulin ? Accu-Cheks ACHS ? We will monitor make adjustments as necessary ? Renal function is at baseline 4. Chronic hypoxic respiratory failure secondary to COPD ? Stable ? Oxygen requirements are at baseline ? Will continue to monitor DVT: Supratherapeutic INR Charges/Coding Visit Charges Inpatient E&M: 16033 Subs Hosp L2
[2023-10-08 11:28] LABS: Bedside Glucose 151 mg/dL (74-106)
[2023-10-08] MEDS: 0.9% Saline Lock 10 ML Syringe IV ×2 (13:02→20:29)
[2023-10-08] MEDS: Vancomycin IV 1,000 MG/200 ML BAG 200 MG IV (14:46)
[2023-10-08 16:10] LABS: Bedside Glucose 142 mg/dL (74-106)
[2023-10-08] MEDS: oxyCODONE 5 MG Tablet PO (20:27)
[2023-10-08] MEDS: MELATONIN 10 MG TABLET 5 MG PO (20:28)
[2023-10-08] MEDS: Atorvastatin Calcium 80 MG Tablet PO (20:29)
[2023-10-08 22:05] LABS: Bedside Glucose 151 mg/dL (74-106)
[2023-10-09] VITALS (7 sets, daily range): BP systolic 99–123; BP diastolic 62–88; PULSE 95–107; RESP 16–20; TEMP 36.5–36.6; O2SAT 91–98
[2023-10-09] MEDS: Piperacil/Tazobactam 3.375 GM in 0.9% Normal Saline (50mL MB+) 50 ML IV ×3 (06:14→21:27)
[2023-10-09] MEDS: Acetaminophen 500 MG Tablet 1000 MG PO ×3 (06:14→21:23)
[2023-10-09 06:47] LABS: Bedside Glucose 93 mg/dL (74-106)
[2023-10-09] MEDS: Budesonide Respules 0.5 MG/2 ML AMPUL.NEB. INHALATION ×2 (07:17→19:07)
[2023-10-09 08:19] LABS: Absolute Lymphocyte Count 1.22 X10^3/uL (0.83-4.51); Absolute Neutrophil Count 6.4 X10^3/uL (2.0-7.7); Basophil# 0.06 X10^3/uL; Basophil% 0.7 % (0-1); Eosinophil# 0.12 X10^3/uL; Eosinophils% 1.4 % (0-5); Hematocrit 45.9 % (37-47); Hemoglobin 14.6 g/dL (12.0-15.0); Lymphocyte # 1.22 X10^3/ul (0.83-4.51); Lymphocyte % 13.8 % (19-41); Mean Corp Hgb Conc 31.8 g/dL (32-36); Mean Corpuscular Hgb 30.1 pg (27.0-32.0); Mean Corpuscular Volume 94.6 fL (81-99); Mean Platelet Vol. 11.6 fl (6.2-12.0); Monocyte# 0.99 X10^3/uL; Monocyte% 11.2 % (0-10); NRBC Flagged by Analyzer 0.2 % (0-5); Neutrophil % 72.7 % (47-70); Platelet Count 183 K/mm3 (150-450); RBC Distribution Width CV 17.6 % (11.6-14.6); RBC Distribution Width SD 59.1 fl (35.1-43.9); Red Blood Count 4.85 M/mm3 (4.2-5.4); White Blood Count 8.8 K/mm3 (4.4-11.0)
[2023-10-09] MEDS: Menthol/Lanolin/Calamine/Znox 113 GM Tube 1 APPLIC TOPICAL ×2 (08:59→21:26)
[2023-10-09] MEDS: Potassium Chloride Oral Tablet 20 MEQ PO (08:59)
[2023-10-09] MEDS: Loratadine 10 MG Tablet PO (08:59)
[2023-10-09] MEDS: Cholecalciferol (VIT D3) 25 MCG TABLET (1,000 UNITS) PO (08:59)
[2023-10-09] MEDS: Nystatin Powder 15gm Bottle 1 APPLIC TOPICAL ×2 (08:59→21:23)
[2023-10-09 09:01] LABS: ALB/GLOB Ratio 0.7 RATIO (0.9-2.4); AST(SGOT) 32 U/L (15-37); Alanine Aminotransfer ALT/SGPT 19 U/L (13-56); Albumin, Serum 2.5 g/dL (3.2-5.0); Alkaline Phosphatase 169 U/L (45-117); Anion Gap 6 (5-15); BUN 27 mg/dL (7-18); BUN/Creat Ratio 15.8 RATIO (10-20); Calcium,Total 8.7 mg/dL (8.5-10.1); Chloride 107 mmol/L (98-107); Creatinine, Serum 1.71 mg/dL (0.55-1.02); EST Glomerular Filtration Rate 31 mL/min (>60); Est Glom Filt Rate - Afr Amer 37 mL/min (>60); Estimated Creatinine Clearance 32.81 ml/min; Globulin 3.5 g/dL (2.2-4.2); Glucose 124 mg/dL (74-106); Potassium 4.4 mmol/L (3.5-5.1); Sodium Level 136 mmol/L (136-145)
[2023-10-09 09:09] LABS: Prothrombin Time (Protime)PT. 61.2 SECONDS (11.7-14.9)
[2023-10-09 09:17] LABS: International Normalized Ratio 6.9
--- NOTE | 2023-10-09 09:19 | NM_ITS ---
CLINICAL: 78-year-old female with history of hyperbilirubinemia. RADIONUCLIDE HEPATOBILIARY SCINTIGRAPHY COMPARISON: Abdominal ultrasound report 10/08/2023 FINDINGS: Following the intravenous administration of 5.8 mCi of 99m Tc Mebrofenin, hepatobiliary images reveal: 1. Relatively prompt and homogeneous radiopharmaceutical concentration is noted by a normal sized liver. No parenchymal defects are identified. 2. Gallbladder activity is identified at 30 minutes post radiopharmaceutical administration. 3. Small intestinal tract is observed at 15 minutes following tracer injection. 4. Washout of the radiopharmaceutical by the hepatic parenchyma appears qualitatively normal. Cholecystokinin (0.02 ug/kg) was administered intravenously over a 30-minute period. The post CCK gallbladder ejection fraction calculated at 20 minutes following Cholecystokinin administration was noted to be < 5 % (normal greater than 35%). NM/Hepatobilliary Img w/Pharm Int IMPRESSION: 1. ABNORMAL 99m Tc Mebrofenin hepatobiliary imaging examination with Cholecystokinin. A. A gallbladder ejection fraction calculated to be less than 35% following the administration of Cholecystokinin is consistent with the presence of functional hepatobiliary disease (gallbladder and/or sphincter of Oddi dyskinesia) and/or organic hepatobiliary disease (chronic acalculous cholecystitis and/or cystic duct syndrome) in patients with intermediate to high pretest probabilities of hepatobiliary illness. (Harry Young et al, Journal of Nuclear Medicine 32:1695, 1991). Electronically Signed: Agapito Melgoza DO at 22:51 EST ,
[2023-10-09] MEDS: Phytonadione (Vit K1) 5 MG TABLET PO (09:42)
--- NOTE | 2023-10-09 12:05 | PN.HOSP_ITS ---
Subjective Subjective Doing well feels much better today. Liver ultrasound did show some fatty infiltration with stented gallbladder with a thickened wall and a positive sonographic Howe sign Objective Data Objective Data Vital Signs: Vital Signs Temp Pulse Resp BP Pulse Ox O2 Del Method O2 Flow Rate 97.8 F 95 20 H 99/62 98 Nasal Cannula 3 10/09/23 09:04 10/09/23 09:04 10/09/23 09:04 10/09/23 09:04 10/09/23 09:10 10/09/23 09:04 10/09/23 09:12 Oxygen Flow Rate (L/min) 3 Oxygen Delivery Method Nasal Cannula Weight: 228 lb 6.382 oz Body Mass Index (BMI) 39.2 Intake & Output: Intake and Output for Last 24 Hours 10/08/23 10/09/23 10/10/23 03:59 03:59 03:59 Intake Total 640 / 640 650 / 650 50 / 50 Balance 640 / 640 650 / 650 50 / 50 Lab / Micro Data 10/09/23 08:06 10/09/23 08:06 Labs: Laboratory Results - last 24 hr 10/08/23 15:53: POC Glucose 142 H 10/08/23 20:35: POC Glucose 151 H 10/09/23 06:20: POC Glucose 93 10/09/23 08:06: WBC 8.8, RBC 4.85, Hgb 14.6, Hct 45.9, MCV 94.6, MCH 30.1, MCHC 31.8 L, RDW Std Deviation 59.1 H, RDW Coeff of Demian 17.6 H, Plt Count 183, MPV 11.6, Immature Gran % (Auto) 0.200, Neut % (Auto) 72.7 H, Lymph % (Auto) 13.8 L, [place] % (Auto) 11.2 H, Eos % (Auto) 1.4, Baso % (Auto) 0.7, Absolute Neuts (auto) 6.4, Absolute Lymphs (auto) 1.22, Nucleated RBC % 0.2, PT 61.2 H, INR 6.9 H*, Sodium 136, Potassium 4.4, Chloride 107, Carbon Dioxide 23.0, Anion Gap 6, BUN 27 H, Creatinine 1.71 H, Estim Creat Clear Calc 32.81, Est GFR (MDRD) Af Amer 37 L, Est GFR (MDRD) Non-Af 31 L, BUN/Creatinine Ratio 15.8, Glucose 124 H, Calcium 8.7, Total Bilirubin 1.50 H, AST 32, ALT 19, Alkaline Phosphatase 169 H, Total Protein 6.0 L, Albumin 2.5 L, Globulin 3.5, Albumin/Globulin Ratio 0.7 L Micro: Microbiology 10/05/23 17:30 Blood Culture (Wb) - Anticubital Right Blood Culture - Preliminary No growth in 48 hours. 10/05/23 17:43 Blood Culture (Wb) - Arm Right Blood Culture - Preliminary No growth in 48 hours. Radiography Diagnostic Testing: Radiology Impression Liver Ultrasound 10/08/23 09:36 IMPRESSION: Nonspecific fatty infiltrated liver Findings consistent with gallstones and acute cholecystitis. This may be further confirmed with HIDA scan if clinically warranted. Electronically Signed: Shreyas Lake MD at 17:56 EST Reading Location ID and State: [address] [place] [address] Tel , Service support , Physical Exam Narrative General: Alert, Oriented x3, Cooperative, No apparent distress HEENT: Atraumatic, PERRLA, EOMI, Normocephalic Oral: Moist Mucosa Neck: Supple, No JVD Lungs: Diminished, Normal air movement, No rhonchi, No wheeze, No rales Cardiovascular: Regular rate, Regular Rhythm, Normal S1, Normal S2, No murmurs Abdomen: Soft, mild RUQ tender, Non-Distended, No Hepato-splenomegaly Extremities: No edema, Capillary Refill Less than 3 Seconds Skin: Erythema on her left lower extremity has not passed marking, not warm and seems to be clearing Musculoskeletal: No Tenderness to Palpation of Joints or Extremities Neurological: No focal neurological deficits, Motor Exam 5/5 strength throughout, Sensory exam intact to light touch and pain Psych/Mental Status: Normal Affect, Appropriate Assessment & Plan Assessment/Plan (1) Left leg cellulitis: (2) Failure of outpatient treatment: (3) Generalized weakness: (4) Debility: PLAN: Plan 1. Left lower extremity cellulitis with failure of outpatient antibiotics/debility ? Continue with IV antibiotics, will broaden spectrum since [facility] ? Blood cultures are negative ?White blood cell count today is 8.8 ? PT/OT ? While white count is improving and her legs appear to be improving her inf lammatory response appears to be increasing 2. Elevated LFTs ? Liver ultrasound demonstrates fatty infiltration ? There is gallbladder wall thickening as well as a dilated gallbladder ? Will proceed with a HIDA scan 3. Essential HTN/HLD/persistent A-fib with nonobstructive CAD/chronic diastolic CHF with pulmonary hypertension ? Blood pressures are stable ? Can continue with her home medications, will hold Lasix today secondary to a slight bump in creatinine to 1.7 ? We will monitor make adjustments as necessary ? INR on admission was 3.2, will recheck in the morning and make adjustments ? She is supratherapeutic at 6.9 we will give her a dose of p.o. vitamin K 4. DM2/CKD 3B ? Hold her home medications ? Continue with insulin ? Accu-Cheks ACHS ? We will monitor make adjustments as necessary ? Renal function is at baseline 5. Chronic hypoxic respiratory failure secondary to COPD ? Stable ? Oxygen requirements are at baseline ? Will continue to monitor DVT: Supratherapeutic INR Charges/Coding Visit Charges Inpatient E&M: 29993 Subs Hosp L2
--- NOTE | 2023-10-09 13:32 | CASEMGMT ---
[facility] for [facility] faxed over, daughter Viki is listed as POA. SW placed the forms on the chart. LEANDRO Mitchell
[2023-10-09] MEDS: Insulin Lispro 100 UNIT/ML INSULN.PEN SC (14:29)
[2023-10-09] MEDS: 0.9% Saline Lock 10 ML Syringe IV ×2 (14:32→16:53)
[2023-10-09 14:33] LABS: Bedside Glucose 159 mg/dL (74-106)
[2023-10-09 16:13] LABS: Vancomycin, Trough Level 24.9 ug/mL (5.0-15.0)
--- NOTE | 2023-10-09 16:25 | PCM.RX.CS ---
Consult Antibiotic Management Pharmacy has been consulted to manage selected antibiotic: Vancomycin Type of Intervention Type of Consult: Follow-up Suspected Infection Suspected Infection: Skin/Soft tissue Prior Doses of Antibiotics Prior Doses of Antibiotics Received/Current Regimen: Vancomycin 1000 mg Q24H given x 3 doses so far Labs Labs: Sodium 136 mmol/L (136-145) 10/09/23 08:06 Potassium 4.4 mmol/L (3.5-5.1) 10/09/23 08:06 Chloride 107 mmol/L (98-107) 10/09/23 08:06 Carbon Dioxide 23.0 mmol/L (21.0-32.0) 10/09/23 08:06 Anion Gap 6 (5-15) 10/09/23 08:06 BUN 27 mg/dL (7-18) H 10/09/23 08:06 Creatinine 1.71 mg/dL (0.55-1.02) H 10/09/23 08:06 Est GFR (MDRD) Af Amer 37 mL/min (>60) L 10/09/23 08:06 Est GFR (MDRD) Non-Af 31 mL/min (>60) L 10/09/23 08:06 BUN/Creatinine Ratio 15.8 RATIO (10-20) 10/09/23 08:06 Glucose 124 mg/dL (74-106) H 10/09/23 08:06 Vancomycin Trough 24.9 ug/mL (5.0-15.0) H 10/09/23 14:27 Microbiology Microbiology: Microbiology 10/05/23 17:30 Blood Culture (Wb) - Anticubital Right Blood Culture - Preliminary No growth in 48 hours. 10/05/23 17:43 Blood Culture (Wb) - Arm Right Blood Culture - Preliminary No growth in 48 hours. Dosing Weight Weight used for dosin.6 kg Estimated Creatinine Clearance Estimated Creatinine Clearance: ~33 Goal Trough Goal Trough: 10-15 mcg/mL Pharmacy Plan for Drug Dosing Pharmacy Plan for Drug Dosing: Vancomycin trough = 24.9, hold vancomycin, random tomorrow afternoon. Pharmacy Service will continue to monitor and adjust dosing as required. Follow-Up Labs Follow-Up Labs: Trough: Vancomycin Date/Time Labs Ordered Labs to be done on [date and time ordered]: 10/10/23 @ 1430
[2023-10-09] MEDS: Ondansetron 4 MG/2 ML Vial IV (16:53)
[2023-10-09] MEDS: oxyCODONE 5 MG Tablet PO ×2 (17:16→21:22)
[2023-10-09 17:47] LABS: Bedside Glucose 143 mg/dL (74-106)
[2023-10-09] MEDS: proCHLORPERazine 10 MG/2 ML Vial IV (20:20)
[2023-10-09] MEDS: Atorvastatin Calcium 80 MG Tablet PO (21:22)
[2023-10-09] MEDS: MELATONIN 10 MG TABLET 5 MG PO (21:22)
[2023-10-09 22:03] LABS: Bedside Glucose 169 mg/dL (74-106)
[2023-10-10 02:10] VITALS: BP 105/56; PULSE 98; RESP 18; TEMP 36.5; O2SAT 94
[2023-10-10] MEDS: 0.9% Normal Saline (250mL Bag) 250 ML 15 ML IV (03:47)
[2023-10-10] MEDS: Piperacil/Tazobactam 3.375 GM in 0.9% Normal Saline (50mL MB+) 50 ML IV ×3 (06:15→21:30)
[2023-10-10] MEDS: Acetaminophen 500 MG Tablet 1000 MG PO ×3 (06:16→21:29)
[2023-10-10 06:47] LABS: Bedside Glucose 134 mg/dL (74-106)
[2023-10-10 07:10] VITALS: PULSE 100; RESP 18
[2023-10-10] MEDS: Budesonide Respules 0.5 MG/2 ML AMPUL.NEB. INHALATION ×2 (07:23→21:57)
[2023-10-10 08:12] VITALS: O2SAT 92
[2023-10-10 08:17] VITALS: BP 102/65; PULSE 98; RESP 16; TEMP 36.9; O2SAT 93
[2023-10-10 08:28] LABS: Prothrombin Time (Protime)PT. 31.7 SECONDS (11.7-14.9)
[2023-10-10 08:42] LABS: ALB/GLOB Ratio 0.7 RATIO (0.9-2.4); AST(SGOT) 36 U/L (15-37); Alanine Aminotransfer ALT/SGPT 16 U/L (13-56); Albumin, Serum 2.6 g/dL (3.2-5.0); Alkaline Phosphatase 178 U/L (45-117); Anion Gap 7 (5-15); BUN 27 mg/dL (7-18); BUN/Creat Ratio 15.7 RATIO (10-20); Calcium,Total 9.1 mg/dL (8.5-10.1); Chloride 106 mmol/L (98-107); Creatinine, Serum 1.72 mg/dL (0.55-1.02); EST Glomerular Filtration Rate 31 mL/min (>60); Est Glom Filt Rate - Afr Amer 37 mL/min (>60); Estimated Creatinine Clearance 32.62 ml/min; Globulin 3.5 g/dL (2.2-4.2); Glucose 120 mg/dL (74-106); Potassium 4.7 mmol/L (3.5-5.1); Protein, Total 6.1 g/dL (6.4-8.2); Sodium Level 135 mmol/L (136-145)
--- NOTE | 2023-10-10 09:12 | PN.HOSP_ITS ---
Subjective Subjective Doing well, feels a bit better the last night she had a large volume of emesis and abdominal pain Objective Data Objective Data Vital Signs: Vital Signs Temp Pulse Resp BP Pulse Ox O2 Del Method O2 Flow Rate 98.4 F 98 16 102/65 93 Nasal Cannula 3 10/10/23 08:17 10/10/23 08:17 10/10/23 08:17 10/10/23 08:17 10/10/23 08:17 10/10/23 08:22 10/10/23 08:22 Oxygen Flow Rate (L/min) 3 Oxygen Delivery Method Nasal Cannula Weight: 228 lb 6.382 oz Body Mass Index (BMI) 39.2 Intake & Output: Intake and Output for Last 24 Hours 10/09/23 10/10/23 10/11/23 03:59 03:59 03:59 Intake Total 650 / 650 350 / 350 42.25 / 42.25 Balance 650 / 650 350 / 350 42.25 / 42.25 Lab / Micro Data 10/09/23 08:06 10/10/23 06:50 Labs: Laboratory Results - last 24 hr 10/09/23 08:06: PT 61.2 H, INR 6.9 H* 10/09/23 14:13: POC Glucose 159 H 10/09/23 14:27: Vancomycin Trough 24.9 H 10/09/23 16:50: POC Glucose 143 H 10/09/23 21:21: POC Glucose 169 H 10/10/23 06:19: POC Glucose 134 H 10/10/23 06:50: PT 31.7 H, INR 3.0, Sodium 135 L, Potassium 4.7, Chloride 106, Carbon Dioxide 22.0, Anion Gap 7, BUN 27 H, Creatinine 1.72 H, Estim Creat Clear Calc 32.62, Est GFR (MDRD) Af Amer 37 L, Est GFR (MDRD) Non-Af 31 L, BUN/Creatinine Ratio 15.7, Glucose 120 H, Calcium 9.1, Total Bilirubin 1.80 H, AST 36, ALT 16, Alkaline Phosphatase 178 H, Total Protein 6.1 L, Albumin 2.6 L, Globulin 3.5, Albumin/Globulin Ratio 0.7 L Micro: Microbiology 10/05/23 17:30 Blood Culture (Wb) - Anticubital Right Blood Culture - Preliminary No growth in 48 hours. 10/05/23 17:43 Blood Culture (Wb) - Arm Right Blood Culture - Preliminary No growth in 48 hours. Radiography Diagnostic Testing: Radiology Impression Hepatobiliary Scan Nuclear Medicine 10/09/23 09:19 IMPRESSION: 1. ABNORMAL 99m Tc Mebrofenin hepatobiliary imaging examination with Cholecystokinin. A. A gallbladder ejection fraction calculated to be less than 35% following the administration of Cholecystokinin is consistent with the presence of functional hepatobiliary disease (gallbladder and/or sphincter of Oddi dyskinesia) and/or organic hepatobiliary disease (chronic acalculous cholecystitis and/or cystic duct syndrome) in patients with intermediate to high pretest probabilities of hepatobiliary illness. (Harry Young et al, Journal of Nuclear Medicine 32:1695, 1990). Electronically Signed: Agapito Melgoza DO at 22:51 EST , Physical Exam Narrative General: Alert, Oriented x3, Cooperative, No apparent distress HEENT: Atraumatic, PERRLA, EOMI, Normocephalic Oral: Moist Mucosa Neck: Supple, No JVD Lungs: Diminished, Normal air movement, No rhonchi, No wheeze, No rales Cardiovascular: Regular rate, Regular Rhythm, Normal S1, Normal S2, No murmurs Abdomen: Soft, mild RUQ tender, Non-Distended, No Hepato-splenomegaly Extremities: No edema, Capillary Refill Less than 3 Seconds Skin: Erythema on her left lower extremity has not passed marking, not warm and seems to be clearing Musculoskeletal: No Tenderness to Palpation of Joints or Extremities Neurological: No focal neurological deficits, Motor Exam 5/5 strength throughout, Sensory exam intact to light touch and pain Psych/Mental Status: Normal Affect, Appropriate Assessment & Plan Assessment/Plan (1) Left leg cellulitis: (2) Failure of outpatient treatment: (3) Generalized weakness: (4) Debility: PLAN: Plan 1. Left lower extremity cellulitis with failure of outpatient antibiotic s/debility ? Continue with IV antibiotics, will broaden spectrum since [facility] ? Blood cultures are negative ?White blood cell count today is 8.8 ? PT/OT, no DVT evident on duplex ? While white count is improving and her legs appear to be improving her inflammatory response appears to be increasing 2. Elevated LFTs ? Liver ultrasound demonstrates fatty infiltration ? There is gallbladder wall thickening as well as a dilated gallbladder ? HIDA scan with an EF of less than 35%, will consult general surgery given her right upper quadrant abdominal pain and emesis for evaluation of the possibility of a calculus cholecystitis and or the need for intervention 3. Essential HTN/HLD/persistent A-fib with nonobstructive CAD/chronic diastolic CHF with pulmonary hypertension ? Blood pressures are stable ? Can continue with her home medications, will hold Lasix today secondary to a slight bump in creatinine to 1.7 ? We will monitor make adjustments as necessary ? INR on admission was 3.2, will recheck in the morning and make adjustments ? INR of 3 today after dose of vitamin K 4. DM2/CKD 3B ? Hold her home medications ? Continue with insulin ? Accu-Cheks ACHS ? We will monitor make adjustments as necessary ? Renal function is at baseline 5. Chronic hypoxic respiratory failure secondary to COPD ? Stable ? Oxygen requirements are at baseline ? Will continue to monitor DVT: Therapeutic INR Charges/Coding Visit Charges Inpatient E&M: 67113 Subs Hosp L2
--- NOTE | 2023-10-10 09:23 | CON.PCM.SX_ITS ---
Assessment & Plan Assessment/Plan (1) Acute cholecystitis due to biliary calculus: PLAN: I have been consulted in conjunction with Dr. Wagoner. She will independently evaluate this patient. Patient had a RUQ u/s completed demonstrating acute cholecystitis with cholelithiasis and positive sonographic Howe's sign. A laparoscopic cholecystectomy with intraoperative cholangiograms was discussed with the patient and her daughter, however due to the patient's co-morbidities, patient may need a cholecystostomy tube placed instead. Proc edure details, risks and benefits have been explained to the patient and the daughter. Patient's INR is still elevated and would need to be corrected prior to either procedure. [place] INR would be 1.5 to 1.8 in order to proceed. Patient and her daughter, Viki, have had the opportunity to ask and have questions answered. Patient verbally understands and agrees with the plan. I will add a lipase to patients lab work from today to assess the status of the pancreas since patient was mostly tender on the left upper quadrant. Once INR level is decreased, will plan to proceed with either a cholecystostomy tube or a laparoscopic cholecystectomy with IOC. Thank you for allowing us to participate in this patient's care. HPI Consult Data Date of Consult: 10/10/23 HPI Narrative HPI Narrative: REMINGTON HERNANDEZ, is a 78 F who presents with worsening bilateral cellulitis from [facility]. Patient states she was started on Keflex as an ou tpatient as the cellulitis started in the left lower extremity. Patient notes then the redness spread to the right lower extremity. Patient was sent to the ED. She was placed on Vanco and Zosyn. Patient is a poor historian, however her daughter, Viki, was present in the room and provided majority of the history. Patient previously lived in [place] until approximately 5 years ago when her family moved her to [place]. Patient was then placed in a intermediate. She sees Dr. Stanley at the intermediate, who oversees her care. Patient also follows with [facility] for AFib. Patient's daughter noted the patient had a mitral valve replacement with a bovine valve in 2002. Patient is currently on Coumadin. She notes previous myocardial infarction years ago. She denies blood clots and history of strokes. Patient also follows with Dr. Garza, pulmonary for history of COPD. She has been on 3 liters of oxygen via nasal canula for at least 5 years now. She is a type 2 diabetic. Her abdominal surgical history includes a partial hysterectomy and removal of one ovary approximately 40 years ago. Patient states she has had an appendectomy and tonsillectomy. Patient notes she developed nausea, vomiting last night. She notes these episodes occur intermittently even at the intermediate. She notes current abdominal pain worse in the left upper quadrant, however some discomfort in the right upper quadrant. She is unsure if her symptoms are related to eating/food. She notes she has not paid attention to that. Patient denies having a history of gallbladder issues. She denies having knowledge about having gallstones. Patient's daughter stated that patient's sister recently had her gallbladder removed and needed an additional procedure to have stones extracted and a stent placed. Patient states she is somewhat mobile. She notes she is able to walk with a walker. her daughter notes here lately that she has been using her walker to get to and from the bathroom due to pain in her legs. She notes physical therapy has been working with her, however not for very long as her oxygen level drops into the high 80's with ambulating. On 10/08, patient's WBC increased along with her LFT's after being on IV antibiotics. A RUQ u/s was ordered demonstrating cholelithiasis and acute cholecystitis. A HIDA was also ordered and was abnormal noting the EF to be <5%. Patient's most recent INR is 3.0 today following a dose of Vitamin K yesterday. Patient last dose of Coumadin has been 6 days ago. ON LICENSE OF [facility] Medical History Atherosclerotic heart disease of eek coronary artery without angina pectoris Chronic anticoagulation Chronic diastolic heart failure Chronic respiratory failure with hypoxia, on home O2 therapy COPD (chronic obstructive pulmonary disease) Debility Diabetes DJD (degenerative joint disease), lumbar Essential hypertension History of cardioversion (~01/16/19) Hypertension Loss of consciousness Mixed hyperlipidemia On home oxygen therapy Persistent atrial fibrillation Presence of stent in coronary artery (~07/20/16) Pulmonary hypertension, moderate to severe Type 2 diabetes mellitus Home Medications atorvastatin 80 mg tablet 80 mg PO QHS cholesterol 12/18/18 [History Last Taken 01/11/19] cholecalciferol (vitamin D3) 25 mcg (1,000 unit) tablet 1,000 unit PO DAILY suppliment 12/18/18 [History Last Taken 01/12/19] furosemide 40 mg tablet 40 mg PO DAILY diuretic 12/18/18 [History Last Taken 01/12/19] guaifenesin 100 mg/5 mL oral liquid 10 ml PO Q4H PRN PRN COUGH 12/22/18 [Rx Last Taken Unknown] potassium chloride 20 mEq tablet,extended release(part/cryst) 20 meq PO DAILY supplement 01/12/19 [History Last Taken 01/12/19] loratadine 10 mg tablet 10 mg PO DAILY 06/05/19 [History Last Taken Unknown] artifi.tears(hypromellose)(PF) 0.3 % eye drops 2 drp ophthalmic (eye) 4-8XD 07/28/20 [History Last Taken Unknown] fluticasone furoate 100 mcg-vilanterol 25 mcg/dose inhalation powder 1 inh inhalation DAILY asthma/copd 01/18/22 [History Last Taken Unknown] insulin glargine 100 unit/mL (3 mL) subcutaneous pen 27 unit subcut QHS dm 01/18/22 [History Last Taken Unknown] menthol 4 % topical gel (Biofreeze (menthol)) 1 applic topical BID PRN pain 01/18/22 [History Last Taken Unknown] ondansetron HCl 4 mg tablet 4 mg PO Q6H PRN nausea and vomiting 01/18/22 [History Last Taken Unknown] semaglutide 0.25 mg or 0.5 mg (2 mg/1.5 mL) subcutaneous pen injector 0.5 mg subcut QWEEK 01/18/22 [History Last Taken 09/29/23] albuterol sulfate 2.5 mg/3 mL (0.083 %) solution for nebulization 2.5 mg inhalation Q4H 08/22/22 [History Last Taken Unknown] acetaminophen 325 mg tablet 650 mg PO Q4H PRN Mild pain 1-3/Temp > 100.7 F 05/28/23 [History Last Taken Unknown] bisacodyl 10 mg rectal suppository (Dulcolax (bisacodyl)) 10 mg IN DAILY 05/28/23 [History Last Taken Unknown] dextrose 40 % oral gel (Glucose Gel) 15 g PO Q15M PRN hypoglycemia 05/28/23 [History Last Taken Unknown] glucagon HCl 1 mg solution for injection (Glucagon (HCl) Emergency Kit) 1 mg subcut Q15M PRN hypoglycemia 05/28/23 [History Last Taken Unknown] insulin aspart U-100 100 unit/mL subcutaneous solution (Novolog U-100 Insulin aspart) 1 sliding scale dose subcut USEASDIRECTD 05/28/23 [History Last Taken Unknown] magnesium hydroxide 400 mg/5 mL oral suspension (Almanza Milk of Magnesia) 30 ml PO DAILY PRN constipation 05/28/23 [History Last Taken Unknown] mineral oil (Fleet Mineral Oil enema) 118 ml IN DAILY PRN constipation 05/28/23 [History Last Taken Unknown] warfarin 2 mg tablet 2 mg PO DAILY 05/28/23 [History Last Taken Unknown] cephalexin 500 mg capsule 500 mg PO Q6H 10/05/23 [History Last Taken 10/05/23] melatonin 5 mg tablet 5 mg PO QHS 10/05/23 [History Last Taken Unknown] Allergy/AdvReac Type Severity Reaction Status Date / Time levofloxacin [From Levaquin] Allergy Hives Verified 10/05/23 13:18 Iodinated Contrast Media AdvReac Swelling Verified 10/05/23 13:18 [CONTRASTS] Family History Father Heart disease Myocardial infarction Cancer prostate Diabetes A-fib Mother CVA (cerebral vascular accident) Myocardial infarction CAD (coronary artery disease) Surgical History History of appendectomy History of coronary artery bypass surgery (~2003) History of mitral valve replacement with mechanical valve (~2003) Presence of coronary angioplasty implant and graft (~07/20/16) Social History household members: none housing: intermediate Smoking Status: Former smoker Tobacco: How many years used: 40 how long ago did patient quit smokin, 1ppd second hand exposure: Yes alcohol intake: never substance use type: does not use caffeine: Yes Type: coffee Number of servings: 2 ROS Constitutional Constitutional: Reports malaise and weakness; Denies anorexia, body ache(s), change in weight, chills, daytime sleepiness, difficulty sleeping, excessive sweating, fatigue, fever(s), frequent falls, headache(s), increased appetite, lethargy, night sweats, poor appetite, snoring, stops breathing during sleep, weight gain or weight loss Eyes Eyes: Denies acute decrease in peripheral vision, blindness, blind spots, bloody eye, blurry vision, burning, change in eye color, change in vision, decreased night vision, diplopia, discharge from eye(s), discongugate gaze, double vision, dry eyes, erythema, excessive blinking, exophthalmos, eye pain, floaters, foreign body, halo effect, irritation, itchy eyes, loss of central vision, loss of peripheral vision, loss of vision, miosis, mydriasis, numbness, nystagmus, other visual disturbances, periorbital itching, photophobia, ptosis, puffy eyes, requires corrective lenses, seeing flashes, spots in vision, sunken eyes, tearing or tunnel vision ENT HEENT: Denies abnormal hearing, bleeding gums, change in voice, dental pain, disequillibrium, dizziness, dry mouth, dysphagia, ear discharge, ear pain, epistaxis, facial pain, foreign body in nose, halitosis, headache(s), hearing loss, hoarseness, lip swelling, loss taste/smell, mouth lesions, mouth pain, mucositis, nasal congestion, nasal discharge, nasal obstruction, nasal trauma, neck mass, neck pain, nose pain, odynophagia, otalgia, post nasal drip, rhinorrhea, sinus pain, sinus pressure, sore throat, throat swelling, tinnitus, tongue swelling or vertigo Cardiovascular Cardiovascular: Denies abdominal bloating, abdominal edema, abdominal pain, arrhythmia on telemetry, bluish discoloration of hand/feet, chest pain, chest pain at rest, chest pain with activity, claudication, clubbing, cold extremities, cyanosis, diaphoresis, dizziness, dyspnea, dyspnea at rest, dyspnea on exertion, easily tiring during activity, edema, erythema on extremities, fatigue, flutter in chest, hypertension, irregular heart rhythm, leg edema, leg ulcers, lightheadedness, nausea, numbness in extremities, orthopnea, orthostatic symptoms, pale glaser skin, palpitations, paroxysmal nocturnal dyspnea, pedal edema, periorbital swelling, pounding heartbeat, racing heartbeat, radiating jaw, neck or arm pain, rapid heart rate, slow heart rate, syncope, tachypnea, vomiting, weakness in extremities or weight gain Respiratory/Chest Respiratory/Chest: Reports shortness of breath at rest and shortness of breath with exertion; Denies change in mental status, change in phlegm color, chest congestion, chest tightness, cough, difficulty clearing secretions, dry cough, dusky skin, dyspnea, dyspnea on exertion, excessive phlegm production, hemoptysis, hoarseness, inability to speak, mouth breathing, nail bed cyanosis, non-rest sleep EDS, pain on inspiration, pain with cough, pale skin, víctor-oral cyanosis, portable oxygen @ home, productive cough, red skin, restlessness, snoring, stridor, tachypnea, wheezing, witnessed apneas, breast mass, breast pain, breast skin changes, breast swelling, change in breast shape or nipple discharge Gastrointestinal Gastrointestinal: Reports abdominal pain, belching, bloating, nausea and vomiting; Denies anorexia, change in bowel habits, change in stool character, chewing difficulty, coffee ground emesis, constipation, cramping, diarrhea, dry heaves, dyspepsia, dysphagia, early satiety, excessive flatus, fecal incontinence, heartburn, hematemesis, hematochezia, hemorrhoids, loose stools, melena, odynophagia, rectal bleeding, taste impaired, tenesmus or weight changes Genitourinary Genitourinary: Reports dribbling; Denies anuria, burning urination, difficulty urinating, dysuria, movement, flank pain, hematuria, itching, low back pain, nocturia, oliguria, polyuria, urinary frequency, urinary hesitancy, uri nary incontinence or urinary urgency Musculoskeletal Musculoskeletal: Reports other Details: Left leg pain ; Denies abnormal gait, arthralgias, atrophy, back pain, deformity, difficulty walking, extremity pain, joint pain, joint stiffness, joint swelling, limited range of motion, loss of height, muscle cramps, muscle spasms, muscle weakness, myalgias, neck pain, numbness, radiating pain into limb, stiffness, tingling or tremors Integumentary Integumentary: Reports lesions, rash and wounds; Denies acne, alopecia, bleeding lesions, change in hair, change in pigmentation, changing lesions, dry skin, erythema, furuncle, hirsutism, jaundice, nail changes, new lesions, non-healing lesions, photosensitivity, pruritus, skin pain, skin ulcer, skin swelling, sores, striae or unusual bruising Neurologic Neurologic: Denies abnormal gait, abnormal hearing, abnormal movements, abnormal speech, behavior changes, burning sensations, confusion, convulsions, disequilibrium, dizziness, focal weakness, frequent falls, headache(s), lack of coordination, loss of vision, memory loss, numbness, other visual disturbances, paresthesias, radicular pain, restless legs, seizure-like activity, seizures, sensory deficit, syncope, tingling, tremor(s), vertigo or weakness Psychiatric Psychiatric: Denies abnormal sleep pattern, anhedonia, anxiety, auditory hallucinations, behavioral changes, change in appetite, change in libido, cognitive impairment, confusion, depression, difficulty concentrating, hallucinations, homicidal ideation, hopelessness, irritability, memory loss, mood swings, panic attacks, paranoia, suicidal ideation, suicidal thoughts, tactile hallucinations or visual hallucinations Endocrine Endocrinology: Denies change in body appearance, cold intolerance, deepening of the voice, excessive sweating, fatigue, flushing, heat intolerance, increase in ring/shoe/hat size, palpitations, polydipsia, polyphagia or polyuria Hematologic/Lymphatic Hematologic/Lymphatic: Reports easy bleeding and easy bruising; Denies anemia or lymphadenopathy Allergic/Immunologic Allergic/Immunologic: Denies GI upset w/certain foods, itchy eyes, lip swelling, seasonal rhinorrhea, rhinitis, throat swelling, tongue swelling, hives, urticaria, eczemia, wheezing or asthma Physical Exam Const alert, oriented x3 and no apparent distress Constitutional Narrative: Resting comfortably in bed. On 3 Liters oxygen via nasal canula. HEENT normocephalic and head/scalp atraumatic Eyes PERRL Neck full ROM Lymph Lymphatic: no lymphadenopathy noted Chest inspection of chest normal Resp normal respiratory effort and normal air movement Effort and Inspection: able to speak in complete sentences Auscultation: diminished lung sounds bilateral lower Cardio regular rate and regular rhythm GI GI Narrative: Abdomen- soft, obese, tenderness in the left lower quadrant, left upper quadrant and right upper quadrant. More severe pain in the left upper quadrant. Positive bowel sounds are auscultated. no CVA tenderness Back/Spine no CVA tenderness Extremity Extremity Narrative: Left lower extremity erythema noted however not passed the markings noted. Skin General Skin Exam: erythema Neuro no focal motor deficits and no sensory deficits noted Psych mental status grossly normal and thought process normal Attitude: calm and engaged Lab / Micro Data 10/09/23 08:06 10/10/23 06:50 Labs: Laboratory Results - last 24 hr 10/09/23 14:13: POC Glucose 159 H 10/09/23 14:27: Vancomycin Trough 24.9 H 10/09/23 16:50: POC Glucose 143 H 10/09/23 21:21: POC Glucose 169 H 10/10/23 06:19: POC Glucose 134 H 10/10/23 06:50: PT 31.7 H, INR 3.0, Sodium 135 L, Potassium 4.7, Chloride 106, Carbon Dioxide 22.0, Anion Gap 7, BUN 27 H, Creatinine 1.72 H, Estim Creat Clear Calc 32.62, Est GFR (MDRD) Af Amer 37 L, Est GFR (MDRD) Non-Af 31 L, BUN/Creatinine Ratio 15.7, Glucose 120 H, Calcium 9.1, Total Bilirubin 1.80 H, AST 36, ALT 16, Alkaline Phosphatase 178 H, Total Protein 6.1 L, Albumin 2.6 L, Globulin 3.5, Albumin/Globulin Ratio 0.7 L Imaging Radiology Impression Hepatobiliary Scan Nuclear Medicine 10/09/23 09:19 IMPRESSION: 1. ABNORMAL 99m Tc Mebrofenin hepatobiliary imaging examination with Cholecystokinin. A. A gallbladder ejection fraction calculated to be less than 35% following the administration of Cholecystokinin is consistent with the presence of functional hepatobiliary disease (gallbladder and/or sphincter of Oddi dyskinesia) and/or organic hepatobiliary disease (chronic acalculous cholecystitis and/or cystic duct syndrome) in patients with intermediate to high pretest probabilities of hepatobiliary illness. (Harry Young et al, Journal of Nuclear Medicine 32:1695, 1991). Electronically Signed: Agapito Melgoza DO at 22:51 EST , Charges/Coding Visit Charges Office Visits / Consults: [id number] IP Consult L3
[2023-10-10 09:58] LABS: Lipase 28 U/L (13-75)
--- NOTE | 2023-10-10 10:53 | CT_ITS ---
STUDY: CT ABDOMEN AND PELVIS WITHOUT CONTRAST REASON FOR EXAM: Female, 78 years old. Gallbladder eval RADIATION DOSAGE (If Supplied By Facility): CTDIvol = ( 21.50 ) mGy, DLP = ( 1015.25 ) mGycm TECHNIQUE: Transaxial images were obtained from the dome of the diaphragm to the symphysis pubis without oral contrast, and without intravenous contrast. Sagittal and coronal images were reconstructed. Individualized dose optimization techniques were used for this CT. COMPARISON: Comparison is made with prior sonogram of the abdomen dated October 08, 2023 and prior HIDA scan dated October 09, 2023. FINDINGS: Small right pleural effusion with underlying basilar atelectasis. Minimal left pleural effusion. Coronary artery calcification. There is evidence of a perihepatic and perisplenic fluid in keeping with ascites. Small amount of fluid is also seen in the pelvis. Normal liver. There are multiple small layering gallstones. The gallbladder is not distended. Normal spleen. There is diffuse atrophy of the pancreas. Calcification in the uncinate process of the pancreas. Normal bilateral adrenal glands. Normal right kidney. Normal left kidney. There is a small hiatal hernia. Normal small intestine. Normal colon. The appendix is visualized and appears normal. There is diffuse atherosclerotic calcification of the abdominal aorta and its major visceral branches, without a demonstrated aneurysm. Normal inferior vena cava. Normal retroperitoneum. Normal urinary bladder. There is a small umbilical hernia containing fat. There are mild degenerative changes of the visualized lumbar spine. CT/Abdomen/Pelvis without Cont IMPRESSION: Right pleural effusion with basilar atelectasis. Minimal left pleural effusion. Small amount of ascites. Multiple small gallstones along the dependent portion of the gallbladder. The gallbladder is not distended. Electronically Signed: Simon Rust MD at 12:49 EST ,
[2023-10-10] MEDS: Potassium Chloride Oral Tablet 20 MEQ PO (12:11)
[2023-10-10] MEDS: Loratadine 10 MG Tablet PO (12:11)
[2023-10-10] MEDS: Nystatin Powder 15gm Bottle 1 APPLIC TOPICAL ×2 (12:12→21:30)
[2023-10-10] MEDS: Cholecalciferol (VIT D3) 25 MCG TABLET (1,000 UNITS) PO (12:12)
[2023-10-10] MEDS: Pantoprazole Sodium 40 MG in 0.9% Normal Saline (100mL MB+) 100 ML 330 MG IV (12:12)
[2023-10-10] MEDS: Insulin Lispro 100 UNIT/ML INSULN.PEN SC ×2 (12:12→17:04)
[2023-10-10] MEDS: Menthol/Lanolin/Calamine/Znox 113 GM Tube 1 APPLIC TOPICAL ×2 (12:17→21:39)
[2023-10-10 12:21] LABS: Bedside Glucose 221 mg/dL (74-106)
[2023-10-10] MEDS: Phytonadione (Vit K1) 5 MG TABLET PO (14:00)
[2023-10-10 14:30] LABS: Partial Thromboplast Time 44.6 Seconds (24.1-36.2)
[2023-10-10 15:08] LABS: Vancomycin, Random Level 19.9 ug/mL (0.0-15.0)
--- NOTE | 2023-10-10 15:20 | PCM.RX.CS ---
Consult Antibiotic Management Pharmacy has been consulted to manage selected antibiotic: Vancomycin Type of Intervention Type of Consult: Follow-up Suspected Infection Suspected Infection: Skin/Soft tissue Prior Doses of Antibiotics Prior Doses of Antibiotics Received/Current Regimen: no current scheduled dose Labs Labs: Sodium 135 mmol/L (136-145) L 10/10/23 06:50 Potassium 4.7 mmol/L (3.5-5.1) 10/10/23 06:50 Chloride 106 mmol/L (98-107) 10/10/23 06:50 Carbon Dioxide 22.0 mmol/L (21.0-32.0) 10/10/23 06:50 Anion Gap 7 (5-15) 10/10/23 06:50 BUN 27 mg/dL (7-18) H 10/10/23 06:50 Creatinine 1.72 mg/dL (0.55-1.02) H 10/10/23 06:50 Est GFR (MDRD) Af Amer 37 mL/min (>60) L 10/10/23 06:50 Est GFR (MDRD) Non-Af 31 mL/min (>60) L 10/10/23 06:50 BUN/Creatinine Ratio 15.7 RATIO (10-20) 10/10/23 06:50 Glucose 120 mg/dL (74-106) H 10/10/23 06:50 Vancomycin Trough 24.9 ug/mL (5.0-15.0) H 10/09/23 14:27 Random Vancomycin 19.9 ug/mL (0.0-15.0) H 10/10/23 14:00 Microbiology Microbiology: Microbiology 10/05/23 17:30 Blood Culture (Wb) - Anticubital Right Blood Culture - Preliminary No growth in 48 hours. 10/05/23 17:43 Blood Culture (Wb) - Arm Right Blood Culture - Preliminary No growth in 48 hours. Dosing Weight Weight used for dosin.6 kg Estimated Creatinine Clearance Estimated Creatinine Clearance: 33 ml/min Goal Trough Goal Trough: 10-15 mcg/mL Pharmacy Plan for Drug Dosing Pharmacy Plan for Drug Dosing: The vanc random level drawn at 14:00 today was 19.9. It is still above goal range (moderate goal 10-15) so will continue to hold dosing. Will order a repeat random level in 24 hours and if <15 will be able to resume dosing. Pharmacy Service will continue to monitor and adjust dosing as required. Follow-Up Labs Follow-Up Labs: Trough: Vancomycin (random) Date/Time Labs Ordered Labs to be done on [date and time ordered]: 10/11/23 14:30
[2023-10-10] MEDS: HEPARIN/D5w 25,000 UNITS 25,000 UNITS/250 ML IV.SOLN. 10 UNITS CONT INF (16:58)
[2023-10-10 17:28] LABS: Bedside Glucose 178 mg/dL (74-106)
[2023-10-10 17:50] LABS: Hematocrit 46.9 % (37-47); Hemoglobin 14.6 g/dL (12.0-15.0); Mean Corp Hgb Conc 31.1 g/dL (32-36); Mean Corpuscular Hgb 29.9 pg (27.0-32.0); Mean Corpuscular Volume 95.9 fL (81-99); POSITIVE COUNT YES; POSITIVE MORPHOLOGY YES; Platelet Count 81 K/mm3 (150-450); RBC Distribution Width CV 17.8 % (11.6-14.6); RBC Distribution Width SD 60.2 fl (35.1-43.9); Red Blood Count 4.89 M/mm3 (4.2-5.4)
[2023-10-10 17:52] LABS: Scan Indicated on CBC? Y/N YES- FLAGS NOTED
[2023-10-10 18:23] LABS: Differential Comment SCANNED
[2023-10-10 21:00] VITALS: BP 106/75; PULSE 104; RESP 16; TEMP 36.6; O2SAT 95
[2023-10-10] MEDS: MELATONIN 10 MG TABLET 5 MG PO (21:30)
[2023-10-10] MEDS: Atorvastatin Calcium 80 MG Tablet PO (21:40)
[2023-10-10 22:00] VITALS: PULSE 102; RESP 15; RESP 18
[2023-10-10 22:39] LABS: Bedside Glucose 136 mg/dL (74-106)
[2023-10-10 23:26] LABS: Partial Thromboplast Time > 200.0 Seconds (24.1-36.2)
--- NOTE | 2023-10-10 23:32 | NURSING ---
2330: PTT RESULT >200. HEPARIN DRIP STOPPED AT THIS TIME PER PROTOCOL.
[2023-10-11] VITALS (26 sets, daily range): BP systolic 73–117; BP diastolic 49–75; PULSE 90–104; RESP 14–20; TEMP 36.3–36.7; O2SAT 88–97
--- NOTE | 2023-10-11 01:10 | NURSING ---
0100: HEPARIN DRIP RESUMED AT THIS TIME (-3ML/HR) PER HEPARIN PROTOCOL =700 UNITS/HR. REPEAT PTT ORDERED FOR 0700
[2023-10-11] MEDS: Piperacil/Tazobactam 3.375 GM in 0.9% Normal Saline (50mL MB+) 50 ML IV ×3 (06:40→21:17)
[2023-10-11] MEDS: Acetaminophen 500 MG Tablet 1000 MG PO ×3 (06:40→21:17)
[2023-10-11 07:00] LABS: Bedside Glucose 130 mg/dL (74-106)
[2023-10-11 07:16] LABS: Absolute Lymphocyte Count 1.62 X10^3/uL (0.83-4.51); Absolute Neutrophil Count 6.6 X10^3/uL (2.0-7.7); Basophil# 0.07 X10^3/uL; Basophil% 0.7 % (0-1); Eosinophil# 0.13 X10^3/uL; Eosinophils% 1.4 % (0-5); Hematocrit 49.9 % (37-47); Hemoglobin 15.2 g/dL (12.0-15.0); Lymphocyte # 1.62 X10^3/ul (0.83-4.51); Mean Corp Hgb Conc 30.5 g/dL (32-36); Mean Corpuscular Hgb 29.3 pg (27.0-32.0); Mean Corpuscular Volume 96.3 fL (81-99); Mean Platelet Vol. 11.6 fl (6.2-12.0); Monocyte# 1.06 X10^3/uL; Monocyte% 11.1 % (0-10); NRBC Flagged by Analyzer 0.7 % (0-5); Neutrophil # 6.57 X10^3/uL (2.7-7.7); Neutrophil % 69.2 % (47-70); Platelet Count 181 K/mm3 (150-450); RBC Distribution Width CV 18.3 % (11.6-14.6); RBC Distribution Width SD 62.2 fl (35.1-43.9); Red Blood Count 5.18 M/mm3 (4.2-5.4); White Blood Count 9.5 K/mm3 (4.4-11.0)
[2023-10-11] MEDS: Budesonide Respules 0.5 MG/2 ML AMPUL.NEB. INHALATION ×2 (07:20→19:23)
[2023-10-11 07:25] LABS: International Normalized Ratio 1.9; Prothrombin Time (Protime)PT. 21.6 SECONDS (11.7-14.9)
[2023-10-11 07:32] LABS: Partial Thromboplast Time 164.5 Seconds (24.1-36.2)
[2023-10-11 07:43] LABS: ALB/GLOB Ratio 0.7 RATIO (0.9-2.4); AST(SGOT) 48 U/L (15-37); Alanine Aminotransfer ALT/SGPT 25 U/L (13-56); Albumin, Serum 2.7 g/dL (3.2-5.0); Alkaline Phosphatase 199 U/L (45-117); Anion Gap 6 (5-15); BUN 30 mg/dL (7-18); BUN/Creat Ratio 15.2 RATIO (10-20); Calcium,Total 9.1 mg/dL (8.5-10.1); Chloride 105 mmol/L (98-107); Creatinine, Serum 1.98 mg/dL (0.55-1.02); EST Glomerular Filtration Rate 26 mL/min (>60); Est Glom Filt Rate - Afr Amer 32 mL/min (>60); Estimated Creatinine Clearance 28.34 ml/min; Glucose 144 mg/dL (74-106); Potassium 4.3 mmol/L (3.5-5.1); Protein, Total 6.7 g/dL (6.4-8.2); Sodium Level 135 mmol/L (136-145)
--- NOTE | 2023-10-11 08:14 | PN.SURG_ITS ---
Subjective Subjective Patient is still having right upper quadrant pain on exam, patient on heparin drip with plans for cholecystostomy tube this morning Objective Data Objective Data Vital Signs: Vital Signs Temp Pulse Resp BP Pulse Ox O2 Del Method O2 Flow Rate 97.4 F L 101 H 16 117/68 95 Nasal Cannula 3 10/11/23 02:00 10/11/23 02:00 10/11/23 02:00 10/11/23 02:00 10/11/23 02:00 10/11/23 04:00 10/11/23 04:00 Oxygen Flow Rate (L/min) 3 Oxygen Delivery Method Nasal Cannula Weight: 228 lb 6.382 oz Body Mass Index (BMI) 39.2 Intake & Output: Intake and Output for Last 24 Hours 10/09/23 10/10/23 10/11/23 23:59 23:59 23:59 Intake Total 350 / 350 367.75 / 367.75 96.08 / 96.08 Balance 350 / 350 367.75 / 367.75 96.08 / 96.08 Lab / Micro Data 10/11/23 07:00 10/11/23 07:00 Labs: Laboratory Results - last 24 hr 10/10/23 06:50: WBC 9.0, RBC 4.89, Hgb 14.6, Hct 46.9, MCV 95.9, MCH 29.9, MCHC 31.1 L, RDW Std Deviation 60.2 H, RDW Coeff of Demina 17.8 H, Plt Count 81 L, MPV TNP, Differential Comment SCANNED, PT 31.7 H, INR 3.0, Sodium 135 L, Potassium 4.7, Chloride 106, Carbon Dioxide 22.0, Anion Gap 7, BUN 27 H, Creatinine 1.72 H , Estim Creat Clear Calc 32.62, Est GFR (MDRD) Af Amer 37 L, Est GFR (MDRD) Non- Af 31 L, BUN/Creatinine Ratio 15.7, Glucose 120 H, Calcium 9.1, Total Bilirubin 1.80 H, AST 36, ALT 16, Alkaline Phosphatase 178 H, Total Protein 6.1 L, Albumin 2.6 L, Globulin 3.5, Albumin/Globulin Ratio 0.7 L, Lipase 28 10/10/23 11:51: POC Glucose 221 H 10/10/23 14:00: APTT 44.6 H, Random Vancomycin 19.9 H 10/10/23 16:48: POC Glucose 178 H 10/10/23 22:20: POC Glucose 136 H 10/10/23 22:50: APTT > 200.0 H* 10/11/23 06:35: POC Glucose 130 H 10/11/23 07:00: WBC 9.5, RBC 5.18, Hgb 15.2 H, Hct 49.9 H, MCV 96.3, MCH 29.3, MCHC 30.5 L, RDW Std Deviation 62.2 H, RDW Coeff of Demian 18.3 H, Plt Count 181, MPV 11.6, Immature Gran % (Auto) 0.600, Neut % (Auto) 69.2, Lymph % (Auto) 17.0 L, [place] % (Auto) 11.1 H, Eos % (Auto) 1.4, Baso % (Auto) 0.7, Absolute Neuts (auto) 6.6, Absolute Lymphs (auto) 1.62, Nucleated RBC % 0.7, PT 21.6 H, INR 1.9, APTT 164.5 H*, Sodium 135 L, Potassium 4.3, Chloride 105, Carbon Dioxide 24.0, Anion Gap 6, BUN 30 H, Creatinine 1.98 H, Estim Creat Clear Calc 28.34, Est GFR (MDRD) Af Amer 32 L, Est GFR (MDRD) Non-Af 26 L, BUN/Creatinine Ratio 15.2, Glucose 144 H, Calcium 9.1, Total Bilirubin 2.10 H, AST 48 H, ALT 25, Alkaline Phosphatase 199 H, Total Protein 6.7, Albumin 2.7 L, Globulin 4.0, Albumin/Globulin Ratio 0.7 L Micro: Microbiology 10/05/23 17:43 Blood Culture (Wb) - Arm Right Blood Culture - Final No growth in 5 days. 10/05/23 17:30 Blood Culture (Wb) - Anticubital Right Blood Culture - Final No growth in 5 days. Radiography Diagnostic Testing: Radiology Impression Abdomen/Pelvis CT 10/10/23 10:53 IMPRESSION: Right pleural effusion with basilar atelectasis. Minimal left pleural effusion. Small amount of ascites. Multiple small gallstones along the dependent portion of the gallbladder. The gallbladder is not distended. Electronically Signed: Simon Rust MD at 12:49 EST , Physical Exam Const oriented x3 and no apparent distress Resp normal respiratory effort Cardio regular rate GI soft to palpation Inspection: Negative for abdominal distention Palpation: tender RUQ (No guarding, equivocal rebound) and Howe's sign Assessment & Plan Assessment/Plan (1) Acute cholecystitis due to biliary calculus: PLAN: Patient is currently on a heparin drip and INR is 1.9. Planning for a cholecystostomy tube to be placed in IR. Discussed with patient that this can be a temporary tube if she is able to get surgery at a tertiary care facility in the future but either way it would relieve her discomfort and allow her to eat. Patient is agreeable with plan. Continue IV Zosyn due to cholecystitis as well as her cellulitis. Vibha Wagoner M.D. Pager: [phone] [facility] [address] [place] [address], [facility], [address] [place] [address] Office: [phone] Charges/Coding Visit Charges Inpatient E&M: 76308 Subs Hosp L2
--- NOTE | 2023-10-11 08:48 | CT_ITS ---
PROCEDURE: CT GUIDED percutaneous cholecystostomy. DATE: October 11, 2023. INDICATION: Female, 78 years old. Acute cholecystitis. PHYSICIAN: Simon Rust M.D. RADIATION DOSAGE (If Supplied By Facility): CTDIvol = ( 18.99 ) mGy, DLP = ( 2223 ) mGycm. Individualized dose optimization techniques were utilized. PROCEDURE: The risks, benefits, and alternatives to the procedure were explained to the patient. The specific risk of hemorrhage requiring further treatment or intervention was detailed and accepted. Follow-up instructions were discussed with the patient as well. Written informed consent was obtained. Conscious sedation was performed. The patient received 3 mg of Versed and 25 mcg of fentanyl intravenously. The patient was in the pulmonary edema. Conscious sedation was started at 1:32 PM and 2:22 PM. The patient was brought into the CT suite and placed in the supine position. . An appropriate entry site was identified. The overlying skin was prepped and draped in the usual sterile fashion. 1% lidocaine was administered subcutaneously for local anesthesia. Under CT guidance, several attempts were performed for percutaneous cholecystostomy. Dilute to the presence of perihepatic fluid, we were unable to enter the gallbladder due to the movement of the liver during the procedure. CT/CT Guidance Abscess Drg w/Cath IMPRESSION: Unsuccessful for continuous cholecystostomy tube placement. Electronically Signed: Simon Rust MD at 14:44 EST ,
--- NOTE | 2023-10-11 09:42 | PCM.PN.HOSP ---
Subjective Subjective Doing well, no issues overnight. Little bit tired today Objective Data Objective Data Vital Signs: Vital Signs Temp Pulse Resp BP Pulse Ox O2 Del Method O2 Flow Rate 97.4 F L 99 14 117/68 93 Nasal Cannula 3 10/11/23 02:00 10/11/23 07:16 10/11/23 07:16 10/11/23 02:00 10/11/23 07:16 10/11/23 07:16 10/11/23 07:16 Oxygen Flow Rate (L/min) 3 Oxygen Delivery Method Nasal Cannula Weight: 228 lb 6.382 oz Body Mass Index (BMI) 39.2 Intake & Output: Intake and Output for Last 24 Hours 10/10/23 10/11/23 10/12/23 03:59 03:59 03:59 Intake Total 350 / 350 367.75 / 367.75 46.08 / 46.08 Balance 350 / 350 367.75 / 367.75 46.08 / 46.08 Lab / Micro Data 10/11/23 07:00 10/11/23 07:00 Labs: Laboratory Results - last 24 hr 10/10/23 06:50: WBC 9.0, RBC 4.89, Hgb 14.6, Hct 46.9, MCV 95.9, MCH 29.9, MCHC 31.1 L, RDW Std Deviation 60.2 H, RDW Coeff of Demian 17.8 H, Plt Count 81 L, MPV TNP, Differential Comment SCANNED, Lipase 28 10/10/23 11:51: POC Glucose 221 H 10/10/23 14:00: APTT 44.6 H, Random Vancomycin 19.9 H 10/10/23 16:48: POC Glucose 178 H 10/10/23 22:20: POC Glucose 136 H 10/10/23 22:50: APTT > 200.0 H* 10/11/23 06:35: POC Glucose 130 H 10/11/23 07:00: WBC 9.5, RBC 5.18, Hgb 15.2 H, Hct 49.9 H, MCV 96.3, MCH 29.3, MCHC 30.5 L, RDW Std Deviation 62.2 H, RDW Coeff of Demian 18.3 H, Plt Count 181, MPV 11.6, Immature Gran % (Auto) 0.600, Neut % (Auto) 69.2, Lymph % (Auto) 17.0 L, [place] % (Auto) 11.1 H, Eos % (Auto) 1.4, Baso % (Auto) 0.7, Absolute Neuts (auto) 6.6, Absolute Lymphs (auto) 1.62, Nucleated RBC % 0.7, PT 21.6 H, INR 1.9, APTT 164.5 H*, Sodium 135 L, Potassium 4.3, Chloride 105, Carbon Dioxide 24.0, Anion Gap 6, BUN 30 H, Creatinine 1.98 H, Estim Creat Clear Calc 28.34, Est GFR (MDRD) Af Amer 32 L, Est GFR (MDRD) Non-Af 26 L, BUN/Creatinine Ratio 15.2, Glucose 144 H, Calcium 9.1, Total Bilirubin 2.10 H, AST 48 H, ALT 25, Alkaline Phosphatase 199 H, Total Protein 6.7, Albumin 2.7 L, Globulin 4.0, Albumin/Globulin Ratio 0.7 L Micro: Microbiology 10/05/23 17:43 Blood Culture (Wb) - Arm Right Blood Culture - Final No growth in 5 days. 10/05/23 17:30 Blood Culture (Wb) - Anticubital Right Blood Culture - Final No growth in 5 days. Radiography Diagnostic Testing: Radiology Impression Abdomen/Pelvis CT 10/10/23 10:53 IMPRESSION: Right pleural effusion with basilar atelectasis. Minimal left pleural effusion. Small amount of ascites. Multiple small gallstones along the dependent portion of the gallbladder. The gallbladder is not distended. Electronically Signed: Simon Rust MD at 12:49 EST , Physical Exam Narrative General: Alert, Oriented x3, Cooperative, No apparent distress HEENT: Atraumatic, PERRLA, EOMI, Normocephalic Oral: Moist Mucosa Neck: Supple, No JVD Lungs: Diminished, Normal air movement, No rhonchi, No wheeze, No rales Cardiovascular: Regular rate, Regular Rhythm, Normal S1, Normal S2, No murmurs Abdomen: Soft, mild RUQ tender, Non-Distended, No Hepato-splenomegaly Extremities: No edema, Capillary Refill Less than 3 Seconds Skin: Erythema on her left lower extremity has not passed marking, not warm and seems to be clearing Musculoskeletal: No Tenderness to Palpation of Joints or Extremities Neurological: No focal neurological deficits, Motor Exam 5/5 strength throughout, Sensory exam intact to light touch and pain Psych/Mental Status: Normal Affect, Appropriate Assessment & Plan Assessment/Plan (1) Left leg cellulitis: (2) Failure of outpatient treatment: (3) Generalized weakness: (4) Debility: PLAN: Plan 1. Left lower extremity cellulitis with failure of outpatient antibiotics/debility ? Continue with IV antibiotics, will broaden spectrum [facility] ? Blood cultures are negative ?White blood cell count today is 8.8 ? PT/OT, no DVT evident on duplex ? While white count is improving and her legs appear to be improving her inflammatory response appears to be increasing 2. Elevated LFTs with a calculus cholecystitis ? Liver ultrasound demonstrates fatty infiltration ? There is gallbladder wall thickening as well as a dilated gallbladder ? HIDA scan with an EF of less than 35%, ? INR was reversed pending procedure for for cholecystostomy tube. Once procedure is completed she will need to be transition back to Coumadin 3. Essential HTN/HLD/persistent A-fib with nonobstructive CAD/chronic diastolic CHF with pulmonary hypertension ? Blood pressures are stable ? Can sariah for her mechanical mitral valvenue with her home medications, will hold Lasix today secondary to a slight bump in creatinine to 1.7 ? We will monitor make adjustments as necessary ?INR is 1.9 after 2 doses of vitamin K 4. DM2/CKD 3B ? Hold her home medications ? Continue with insulin ? Accu-Cheks ACHS ? We will monitor make adjustments as necessary ? Renal function is at baseline, with a slight bump today to 1.98 5. Chronic hypoxic respiratory failure secondary to COPD ? Stable ? Oxygen requirements are at baseline ? Will continue to monitor DVT: Heparin drip Charges/Coding Visit Charges Inpatient E&M: 93133 Subs Hosp L2
[2023-10-11] MEDS: Pantoprazole Sodium 40 MG in 0.9% Normal Saline (100mL MB+) 100 ML 330 MG IV (10:27)
[2023-10-11 11:09] LABS: Partial Thromboplast Time 48.7 Seconds (24.1-36.2)
[2023-10-11 11:58] LABS: Bedside Glucose 119 mg/dL (74-106)
[2023-10-11] MEDS: 0.9% Normal Saline (250mL Bag) 250 ML 15 ML IV (13:29)
[2023-10-11] MEDS: Midazolam 2 MG/2 ML Syringe IV ×3 (13:32→14:11)
[2023-10-11] MEDS: fentaNYL 100 MCG/2 ML Ampul IV (13:32)
[2023-10-11] MEDS: Lidocaine 2% (20 ml mdv) 20 ML Vial INFILT (13:45)
--- NOTE | 2023-10-11 15:15 | CASEMGMT ---
Insurance review for hospitals In-network with?[facility] insurance if transfer is recommended is as follows:?[facility], [place], [facility], [facility], [facility], [facility], [facility]), and . Aliyah Hatch, Discharge Planning Asst.
[2023-10-11] MEDS: Menthol/Lanolin/Calamine/Znox 113 GM Tube 1 APPLIC TOPICAL ×2 (15:57→21:23)
[2023-10-11] MEDS: Loratadine 10 MG Tablet PO (15:58)
[2023-10-11] MEDS: Potassium Chloride Oral Tablet 20 MEQ PO (15:58)
[2023-10-11] MEDS: Nystatin Powder 15gm Bottle 1 APPLIC TOPICAL ×2 (15:58→21:24)
[2023-10-11] MEDS: Cholecalciferol (VIT D3) 25 MCG TABLET (1,000 UNITS) PO (15:58)
--- NOTE | 2023-10-11 16:00 | CASEMGMT ---
Social Work SW met with pt to discuss advance directives. Pt is uncertain if she has completed a health care POA but would want her son Blair to make her decisions. Pt does not think she has completed a living will. JASON spoke with pt son Blair who states pt has not completed a living will and Health Care POA but does state family is aware of pt wishes and would carry them out. At this time, pt not expressing desire to complete documents. MADISON Floyd
--- NOTE | 2023-10-11 16:44 | PN_ITS ---
Progress Note Pt has been accepted at [facility] by Dr. Dawkins- hospitalist, also d/w Dr. Romo with surgery.
--- NOTE | 2023-10-11 16:44 | PCM.PN.BLA ---
Progress Note Pt has been accepted at [facility] by Dr. Dawkins- hospitalist, also d/w Dr. Romo with surgery.
[2023-10-11 16:46] LABS: Bedside Glucose 145 mg/dL (74-106)
[2023-10-11] MEDS: oxyCODONE 5 MG Tablet PO (21:15)
[2023-10-11] MEDS: MELATONIN 10 MG TABLET 5 MG PO (21:16)
[2023-10-11] MEDS: Atorvastatin Calcium 80 MG Tablet PO (21:17)
[2023-10-11 23:44] LABS: Bedside Glucose 238 mg/dL (74-106)
[2023-10-12] VITALS (25 sets, daily range): BP systolic 60–101; BP diastolic 39–79; PULSE 105–113; RESP 16–22; TEMP 35.3–36.3; O2SAT 96–100; BMI 42.0
[2023-10-12] MEDS: 0.9% Normal Saline (500mL Bag) 500 ML 999 ML IV (02:13)
[2023-10-12] MEDS: oxyCODONE 5 MG Tablet PO (02:18)
[2023-10-12] MEDS: 0.9% Normal Saline (1000mL) 1,000 ML 999 ML IV ×2 (03:23→04:00)
--- NOTE | 2023-10-12 03:30 | PCM.HOSP.N ---
Hospitalist Note Patient with acute onset of worsening hypotension. She did have hypotension during attempts for cholecystostomy tube earlier in the day and her pressure since then had improved but remains lower than previously. She notes that since her procedure her abdominal discomfort has worsened and abdominal exam with significant guarding and rebound tenderness in bilateral upper quadrant. Pain 10 out of 10 in severity currently. Patient is slightly diaphoretic and unwell appearing. Discussed with supervising nurse, charge nurse ICU, charge nurse MedSurg 3 with 2 L normal saline ordered, stat H&H now to be drawn by staff, heparin drip to be held, plan transition to the ICU, 2 unit PRBC will be ordered as concern significantly for possibility of intra-abdominal trauma with possibility of bleeding as etiology for hypotension given several passes were attempted for cholecystostomy tube and unfortunately unsuccessful. Norepinephrine has been ordered and property insurance inspector consultation has been requested. Discussed case with Dr. Wagoner and Dr. Corral, surgery who have been seeing the patient for acute cholecystitis given concerns for intra-abdominal event and possibility of more emergent surgery needed. Dr. Corral will present to evaluate patient and agreed with current plan of care. Patient unaware of exact swelling caused by contrast prior and notes it was remote ~ 30 years prior. Will order solumedrol 125 mg IV x 1 and forgo benadryl given her blood pressure. [facility] is going to be contacted and patient status updated with request for emergent transfer; however, will need to further stabilize the patient prior and once patient BP improves will need to obtain the CT emergently.
[2023-10-12] MEDS: Ondansetron 4 MG/2 ML Vial IV (03:43)
[2023-10-12 03:52] LABS: Hematocrit 25.9 % (37-47); Hemoglobin 7.7 g/dL (12.0-15.0)
[2023-10-12] MEDS: Norepinephrine 8 MG in 0.9% Normal Saline (250mL Bag) 242 ML 18.8000000000000007 MG CONT INF (04:10)
--- NOTE | 2023-10-12 04:25 | NURSING ---
2 UNITS TRAUMA BLOOD RECEIVED AND VERIFIED WITH SUSANA WILLARD. DR HUMPHRIES AND DR ESPINOZA AT BEDSIDE. 2 UNITS BLOOD HUNG VIA PRESSURE BAGS.
--- NOTE | 2023-10-12 04:30 | RAD_ITS ---
EXAM: XR ABDOMEN, 1 VIEW CLINICAL INDICATION: NG placement TECHNIQUE: Frontal supine view of the abdomen/pelvis. COMPARISON: Portable chest radiograph of this same date. FINDINGS: LOWER THORAX: There are chronic infiltrates along both heart borders consistent with scarring, and there is chronic pleural thickening on the left. Sternal wires and prosthetic heart valve again noted. GASTROINTESTINAL TRACT: Unremarkable. Non-obstructive. No bowel or stomach distention. ORGANS: Unremarkable as visualized. No organomegaly. No abnormal calcifications. BONES/JOINTS: Thoracolumbar degenerative changes. SOFT TISSUES: No acute pathology. TUBES, LINES AND DEVICES: NG tube again noted to be in place, extending into the stomach; distal tip of the tube forms a loop within the gastric cardia and fundus. The NG tube does not extend into the proximal duodenum, which is filled with gas. RAD/Abdomen Single View (Portable) IMPRESSION: NG tube in place, extending into the stomach. Electronically Signed: Adolfo Parekh MD at 6:25 EST ,
--- NOTE | 2023-10-12 04:31 | PCM.PN.BLA ---
Progress Note Called for pt hypotension. Came in to see the patient. She has had more tenderness since her attempted ernay tube. Hb came back much lower than before and trauma blood and plasma was ordered. Called [facility] to notify of change of status and they are sending air transport for her. Heparin has been held. Another peripheral IV was obtained and pressors will start until pt is volume repleted and rescusitated.
--- NOTE | 2023-10-12 04:46 | RAD_ITS ---
EXAM: XR CHEST, 1 VIEW CLINICAL INDICATION: NGT placement, throat pain TECHNIQUE: Frontal view of the chest. COMPARISON: Abdominal radiograph of this date. Portable chest radiograph of 01/12/2019. FINDINGS: LUNGS AND PLEURAL SPACES: There are chronic infiltrates along both heart borders, unchanged since 2019, consistent with scarring. Left lateral costophrenic angle remains blunted by basilar pleural thickening. There is also pleural thickening along the medial aspect of the right hemidiaphragm and along the lateral aspect of the left lung. No effusion. No new pulmonary infiltrates or pneumothorax identified. HEART: Heart size remains mildly enlarged with normal pulmonary vasculature. MEDIASTINUM: Thoracic aorta remains calcific and minimally elongated. No pneumomediastinum. 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 Mild thoracic dextroscoliosis is present. Lower cervical and thoracic degenerative changes are present. No acute fracture. SOFT TISSUES: Unremarkable. TUBES, LINES AND DEVICES: NG tube has been inserted and extends into the stomach; the distal tip of the tube forms a loop within the gastric fundus and gastric cardia. RAD/Chest 1 View (Portable) IMPRESSION: Satisfactory NG tube positioning. No pneumomediastinum. Chronic pleural-parenchymal scarring bilaterally. No significant interval change in the radiographic appearance of the chest as compared to the prior study of 01/12/2019. Electronically Signed: Adolfo Parekh MD at 6:23 EST ,
--- NOTE | 2023-10-12 05:02 | EKG12_ITS ---
Test Reason : Blood Pressure : / mmHG Vent. Rate : 109 BPM Atrial Rate : 109 BPM P-R Int : 104 ms QRS Dur : 070 ms QT Int : 340 ms P-R-T Axes : 000 -41 147 degrees QTc Int : 457 ms Sinus tachycardia with short WV with Premature ventricular complexes or Fusion complexes Left axis deviation Low voltage QRS Inferior infarct , age undetermined Possible Anterolateral infarct , age undetermined Abnormal ECG When compared with ECG of 12-JAN-2019 15:33, Significant changes have occurred Confirmed by SHANNEN CONNELLY, DANIAL ([id number]), editorial writer HARSHAL SERRANO ([id number]) on 10/12/2023 1:13:56 PM Referred By: Confirmed By:DANIAL PRIDE MD
[2023-10-12] MEDS: Contrast Allergy Safety Check IV (05:29)
--- NOTE | 2023-10-12 05:55 | NURSING ---
0425: 2 units of trauma blood transfused via pressure bags. Verified with Gunjan Harris RN at pt bedside. Blood started at 0425 and finished at 0500. Dr. Abernathy and Dr. Corral at bedside. 0425: HR: 110, RR: 24: BP: 78/52, Temp: 97.1 F, 100% SpO2 on 4 L nasal cannula 0435: HR: 110, RR: 20, BP: 81/61, 100% SpO2 0445: HR: 109, RR: 20, BP: 99/66, 100% SpO2 0500: HR: 108, RR: 20, BP: 101/66, 100% SpO2
[2023-10-12 06:15] LABS: Absolute Lymphocyte Count 0.88 X10^3/uL (0.83-4.51); Absolute Neutrophil Count 12.1 X10^3/uL (2.0-7.7); Basophil# 0.06 X10^3/uL; Basophil% 0.4 % (0-1); Eosinophil# 0.48 X10^3/uL; Eosinophils% 3.2 % (0-5); Hematocrit 33.3 % (37-47); Lymphocyte # 0.88 X10^3/ul (0.83-4.51); Lymphocyte % 5.9 % (19-41); Mean Corpuscular Hgb 28.8 pg (27.0-32.0); Mean Platelet Vol. 12.5 fl (6.2-12.0); Monocyte# 1.26 X10^3/uL; Monocyte% 8.4 % (0-10); NRBC Flagged by Analyzer 1.5 % (0-5); Neutrophil # 12.14 X10^3/uL (2.7-7.7); Neutrophil % 81.1 % (47-70); Platelet Count 113 K/mm3 (150-450); RBC Distribution Width CV 17.2 % (11.6-14.6); RBC Distribution Width SD 57.8 fl (35.1-43.9); Red Blood Count 3.47 M/mm3 (4.2-5.4)
[2023-10-12 06:32] LABS: ALB/GLOB Ratio 0.8 RATIO (0.9-2.4); AST(SGOT) 80 U/L (15-37); Alanine Aminotransfer ALT/SGPT 33 U/L (13-56); Albumin, Serum 2.1 g/dL (3.2-5.0); Alkaline Phosphatase 134 U/L (45-117); Anion Gap 13 (5-15); BUN 30 mg/dL (7-18); Calcium,Total 7.6 mg/dL (8.5-10.1); Chloride 108 mmol/L (98-107); Creatinine, Serum 2.15 mg/dL (0.55-1.02); EST Glomerular Filtration Rate 24 mL/min (>60); Est Glom Filt Rate - Afr Amer 29 mL/min (>60); Estimated Creatinine Clearance 27.16 ml/min; Globulin 2.6 g/dL (2.2-4.2); Glucose 198 mg/dL (74-106); Potassium 4.8 mmol/L (3.5-5.1); Protein, Total 4.7 g/dL (6.4-8.2); Sodium Level 138 mmol/L (136-145)
[2023-10-12] MEDS: Budesonide Respules 0.5 MG/2 ML AMPUL.NEB. INHALATION (06:57)
[2023-10-12 07:09] LABS: Partial Thromboplast Time 38.9 Seconds (24.1-36.2)
[2023-10-12] MEDS: Calcium Gluconate IV 2 GM in 0.9% Normal Saline (100mL Bag) 100 ML IV (07:45)
--- NOTE | 2023-10-12 08:24 | DS.PCM_ITS ---
Providers Date of Admission: 10/05/23 Primary Care Physician: Dr. Veto Stanley MD Consultations 10/10/23 08:06 Consult: General Surgery Routine Consulting Provider: Vibha Wagoner Reason for Consult: elevated LFTs, abnormal HIDA, abd pain EMERGENT Consult: No Notified: Yes Date Notified: 10/10/23 Time Notified: 08:06 Method of Notification: per MD 10/12/23 03:36 Consult: Press Box Custodian / Pulmonary Medicine Routine Consulting Provider: Intensivists/Pulmonary Med Reason for Consult: Hypotension, suspect intra-abdominal etiology EMERGENT Consult: Yes Notified: Yes Date Notified: 10/12/23 Time Notified: 03:28 Method of Notification: Verbal Reason For Visit: LLE CELLULITIS WITH OUTPT FAILURE Diagnosis Discharge Diagnosis (1) Acute cholecystitis due to biliary calculus: Status: Acute Code(s): K80.00 - Calculus of gallbladder with acute cholecystitis without obstruction Medications at Discharge Home Medications atorvastatin 80 mg tablet 80 mg PO QHS cholesterol 12/18/18 cholecalciferol (vitamin D3) 25 mcg (1,000 unit) tablet 1,000 unit PO DAILY suppliment 12/18/18 furosemide 40 mg tablet 40 mg PO DAILY diuretic 12/18/18 guaifenesin 100 mg/5 mL oral liquid 10 ml PO Q4H PRN PRN COUGH 12/22/18 potassium chloride 20 mEq tablet,extended release(part/cryst) 20 meq PO DAILY supplement 01/12/19 loratadine 10 mg tablet 10 mg PO DAILY 06/05/19 artifi.tears(hypromellose)(PF) 0.3 % eye drops 2 drp ophthalmic (eye) 4-8XD 07/28/20 fluticasone furoate 100 mcg-vilanterol 25 mcg/dose inhalation powder 1 inh inhalation DAILY asthma/copd 01/18/22 insulin glargine 100 unit/mL (3 mL) subcutaneous pen 27 unit subcut QHS dm 01/18/22 menthol 4 % topical gel (Biofreeze (menthol)) 1 applic topical BID PRN pain 01/18/22 ondansetron HCl 4 mg tablet 4 mg PO Q6H PRN nausea and vomiting 01/18/22 semaglutide 0.25 mg or 0.5 mg (2 mg/1.5 mL) subcutaneous pen injector 0.5 mg subcut QWEEK 01/18/22 albuterol sulfate 2.5 mg/3 mL (0.083 %) solution for nebulization 2.5 mg inhalation Q4H 08/22/22 acetaminophen 325 mg tablet 650 mg PO Q4H PRN Mild pain 1-3/Temp > 100.7 F 05/28/23 bisacodyl 10 mg rectal suppository (Dulcolax (bisacodyl)) 10 mg RI DAILY 05/28/23 dextrose 40 % oral gel (Glucose Gel) 15 g PO Q15M PRN hypoglycemia 05/28/23 glucagon HCl 1 mg solution for injection (Glucagon (HCl) Emergency Kit) 1 mg subcut Q15M PRN hypoglycemia 05/28/23 insulin aspart U-100 100 unit/mL subcutaneous solution (Novolog U-100 Insulin aspart) 1 sliding scale dose subcut USEASDIRECTD 05/28/23 magnesium hydroxide 400 mg/5 mL oral suspension (Almanza Milk of Magnesia) 30 ml PO DAILY PRN constipation 05/28/23 mineral oil (Fleet Mineral Oil enema) 118 ml RI DAILY PRN constipation 05/28/23 warfarin 2 mg tablet 2 mg PO DAILY 05/28/23 cephalexin 500 mg capsule 500 mg PO Q6H 10/05/23 melatonin 5 mg tablet 5 mg PO QHS 10/05/23 Hospital Course Operations None Procedures - (Unsuccessful cholecystostomy tube) Summary of Care Provided Minutes Spent on Discharge: 40 Hospital Course: Per HPI: REMINGTON HERNANDEZ, is a 78 F who presented to the emergency department at [facility] from local nursing facility with left lower extremity cellulitis that has been worsening despite outpatient oral antibiotics. She stated she began to have some redness in her left lower extremity on Sunday and was started on antibiotics on Sunday. She is a known diabetic. She was given Keflex and has not missed any doses of her antibiotics. Despite ongoing an tibiotic therapy she has worsening redness with proximal spread of the erythema and worsening pain in her left lower extremity. She also reports she is developed a small area on her right calf that is red now 2. She has a few healing wounds on her lower extremities which is likely the nidus for infection. She complains of chills, generalized weakness in addition to her left lower extremity swelling, pain, and erythema. She denies any known fevers. She is chronically dependent on oxygen at 3-1/2 L. Vital signs show a temperature of 98 degrees, blood pressure is 111/87, heart rate 97, respiratory rate 24 and oxygen saturations are 93% on 3.5 L. Her CBC is overall unremarkable. She does have a left shift with a 74.8% neutrophilia. Her chemistry panel shows normal electrolytes with a stable serum creatinine 1.37. Her serum glucose is 148. ESR and CRP are pending. There is no puru lence or fluctuance in the leg so I do not think we need any advanced imaging at this time. I have outlined the left lower extremity and small area in her right lower extremity with purple marker to delineate area of infection Patient will be admitted to the medical floor as a full admission for ongoing treatment of her left lower extremity cellulitis and debility. Hospital Course: 1. Elevated LFTs with acalculus cholecystitis?78-year-old female initially presented with concern for cellulitis but was also endorsing right upper quadrant abdominal pain. She was noted to have some elevated LFTs so a liver ultrasound was performed which demonstrated fatty infiltration as well as a distended gallbladder with gallbladder wall thickening. HIDA scan was obtained that demonstrated an EF of less than 35% consistent with biliary dyskinesia. General surgery was consulted and they recommended a cholecystostomy tube given her multiple comorbidities including mechanical mitral valve needing anticoagulation. Her INR was reversed while simultaneously being placed on a heparin drip. She underwent an attempted cholecystostomy tube yesterday afternoon which was unfortunately unsuccessful after multiple attempts. Given her mechanical valve her heparin drip has been held for approximately 46 hours prior to the procedure and then about 1-1/2 to 2 hours after the procedure however overnight she developed abdominal distention and pain and was noted to have hypotension. Hemoglobin dropped from approximately 14-7.8. She received 4 units of PRBCs as well as 2 units of FFP while awaiting transfer to a higher level of care. Her heparin drip has been off and it was discussed with family the risk that this places with her mitral valve. She was discharged this mo rning with 2 more units of blood to be taken with the ambulance service to higher level of care. 2. Left lower extremity cellulitis with failure of outpatient antibiotics?un clear as to whether she truly has cellulitis, her leg is red but not warm. She did have a lower extremity Doppler which was negative for DVT. Blood cultures were negative. She was continued on her antibiotics and given her biliary issues as above. 3. Essential hypertension, hyperlipidemia, persistent A-fib with nonobstructive CAD with mechanical mitral valve, chronic diastolic CHF pulmonary hypertension, type 2 diabetes, chronic kidney disease stage IIIb, chronic hypoxic respiratory failure secondary to COPD are all chronic medical conditions which complicate her care. Physical Exam Narrative General: Alert, Oriented x3, Cooperative, No apparent distress HEENT: Atraumatic, PERRLA, EOMI, Normocephalic, pale Oral: Moist Mucosa Neck: Supple, No JVD Lungs: Diminished, Normal air movement, No rhonchi, wheeze, No rales Cardiovascular: Tachycardic, Regular Rhythm, Normal S1, Normal S2, No murmurs Abdomen: Soft, mild RUQ tender, Non-Distended, No Hepato-splenomegaly Extremities: No edema, Capillary Refill Less than 3 Seconds Skin: Erythema on her left lower extremity has not passed marking, not warm and seems to be clearing Musculoskeletal: No Tenderness to Palpation of Joints or Extremities Neurological: No focal neurological deficits, Motor Exam 5/5 strength throughout, Sensory exam intact to light touch and pain Psych/Mental Status: Normal Affect, Appropriate Weight / BMI Weight Weight: 245 lb 2.464 oz Body Mass Index (BMI) 42.0 ABG / Lab / Microbiology Data 10/12/23 06:05 10/12/23 06:05 Laboratory: Laboratory Results - last 24 hr 10/11/23 10:30: APTT 48.7 H 10/11/23 11:27: POC Glucose 119 H 10/11/23 16:25: POC Glucose 145 H 10/11/23 21:44: POC Glucose 238 H 10/11/23 22:30: APTT 80.0 H 10/12/23 03:40: Hgb 7.7 L, Hct 25.9 L, Blood Type O POSITIVE, Antibody Screen NEGATIVE, Crossmatch See Detail 10/12/23 06:05: WBC 15.0 H, RBC 3.47 L, Hgb 10.0 L, Hct 33.3 L, MCV 96.0, MCH 28.8, MCHC 30.0 L, RDW Std Deviation 57.8 H, RDW Coeff of Demian 17.2 H, Plt Count 113 L, MPV 12.5 H, Immature Gran % (Auto) 1.000 H, Neut % (Auto) 81.1 H, Lymph % (Auto) 5.9 L, [place] % (Auto) 8.4, Eos % (Auto) 3.2, Baso % (Auto) 0.4, Absolute Neuts (auto) 12.1 H, Absolute Lymphs (auto) 0.88, Nucleated RBC % 1.5, PT Cancelled, INR Cancelled, Sodium 138, Potassium 4.8, Chloride 108 H, Carbon Diox angelita 17.0 L, Anion Gap 13, BUN 30 H, Creatinine 2.15 H, Estim Creat Clear Calc 27.16, Est GFR (MDRD) Af Amer 29 L, Est GFR (MDRD) Non-Af 24 L, BUN/Creatinine Ratio 14.0, Glucose 198 H, Calcium 7.6 L, Total Bilirubin 1.60 H, AST 80 H, ALT 33, Alkaline Phosphatase 134 H, Total Protein 4.7 L, Albumin 2.1 L, Globulin 2.6, Albumin/Globulin Ratio 0.8 L Microbiology: Microbiology 10/05/23 17:43 Blood Culture (Wb) - Arm Right Blood Culture - Final No growth in 5 days. 10/05/23 17:30 Blood Culture (Wb) - Anticubital Right Blood Culture - Final No growth in 5 days. Radiography Diagnostic Testing: Radiology Impression Abscess Drainage CT 10/11/23 08:48 IMPRESSION: Unsuccessful for continuous cholecystostomy tube placement. Electronically Signed: Simon Rust MD at 14:44 EST , KUB X-Ray 10/12/23 04:30 IMPRESSION: NG tube in place, extending into the stomach. Electronically Signed: Adolfo Parekh MD at 6:25 EST , Chest X-Ray 10/12/23 04:46 IMPRESSION: Satisfactory NG tube positioning. No pneumomediastinum. Chronic pleural-parenchymal scarring bilaterally. No significant interval change in the radiographic appearance of the chest as compared to the prior study of 01/12/2019. Electronically Signed: Adolfo Parekh MD at 6:23 EST , Meaningful Use Info Meaningful Use Diagnoses (Choose all that apply): None applicable Discharge Plan Admission Admit Date/Time: 10/05/23 16:27 Attending Provider: Wiley Booker Primary Care Provider: Veto Stanley Consulting Providers: Camila Villalba; Vibha Wagoner; John Kuo; Bradly Bagley; Raji Garza; Pj Mari; Allison Martinez; Randolph Flores; Karen Dale; Cinda Anderson; Ravi Hamilton; Magnus Zamarripa; Fuentes Sears; Adrien Cerna Instructions Patient Instructions: T-Tube Care Tylor, DIANE RN Procedural Sedation Discharge Orders/Prescriptions Prescriptions: No Action loratadine 10 mg tablet 10 mg PO DAILY artifi.tears(hypromellose)(PF) 0.3 % drops 2 drp OPHTHALMIC 4-8XD Biofreeze (menthol) 4 % gel 1 applic topical BID PRN (Reason: pain) Ozempic 0.25 mg or 0.5 mg(2 mg/1.5 mL) pen injector 0.5 mg subcut QWEEK ondansetron HCl 4 mg tablet 4 mg PO Q6H PRN (Reason: nausea and vomiting) albuterol sulfate 2.5 mg /3 mL (0.083 %) solution for nebulization 2.5 mg inhalation Q4H warfarin 2 mg tablet 2 mg PO DAILY bisacodyl [Dulcolax (bisacodyl)] 10 mg suppository 10 mg RI DAILY acetaminophen 325 mg tablet 650 mg PO Q4H PRN (Reason: Mild pain 1-3/Temp > 100.7 F) mineral oil [Fleet Mineral Oil] Enema 118 ml RI DAILY PRN (Reason: constipation) Rx Instructions: discard any unused portion dextrose [Glucose Gel] 40 % gel 15 g PO Q15M PRN (Reason: hypoglycemia) Rx Instructions: until symptoms of low blood sugar are controlled glucagon HCl [Glucagon (HCl) Emergency Kit] 1 mg recon soln 1 mg subcut Q15M PRN (Reason: hypoglycemia) Rx Instructions: until target blood sugar attained magnesium hydroxide [Almanza Milk of Magnesia] 400 mg/5 mL suspension 30 ml PO DAILY PRN (Reason: constipation) Rx Instructions: if no BM in 3 consecutive days insulin aspart U-100 [Novolog U-100 Insulin aspart] 100 unit/mL solution 1 sliding scale dose subcut USEASDIRECTD Rx Instructions: if 155-199= 3 units; 200-250 = 5 units; 251-300= 10 units; 301-350= 12 units; 351-400= 15 units. Sub Q before meals atorvastatin 80 MG tablet 80 mg PO QHS cholecalciferol (vitamin D3) 1,000 UNIT tablet 1,000 unit PO DAILY furosemide 40 MG tablet 40 mg PO DAILY guaifenesin 10 ML liquid 10 ml PO Q4H PRN PRN (Reason: COUGH) 0RF fluticasone furoate-vilanterol 100-25 mcg/dose blister with device 1 inh inhalation DAILY potassium chloride 20 MEQ tablet 20 meq PO DAILY insulin glargine 100 unit/mL (3 mL) insulin pen 27 unit subcut QHS cephalexin 500 mg capsule 500 mg PO Q6H Patient Comments: 2 DOSES GIVEN TODAY Rx Instructions: X10D, STARTED 09/30 melatonin 5 mg tablet 5 mg PO QHS Referrals / Follow Up: Veto Stanley MD [Primary Care Provider] - Disposition Discharge Orders: Discharge Patient (Routine); Ordered 10/12/23 Ordered By: Dr. Rina Abernathy Charges/Coding Visit Charges Inpatient E&M: 14220 Disch Hosp >30min
[2023-10-12 08:29] LABS: International Normalized Ratio 1.9; Prothrombin Time (Protime)PT. 21.8 SECONDS (11.7-14.9)
--- NOTE | 2023-10-12 08:38 | CASEMGMT ---
Social Work Pt to be transferred to [facility]. SW sent updates to Henriette via [employer]. LEANDRO Mitchell
== END 2023-10-12 08:30 | disposition short-term general hospital (02) | DRG 603 ==
LOC: ED 13:51 → MS3 16:35 → ICU 10-12 03:59
PROVIDERS: Family Medicine; Nurse Practitioner Acute Care; Physician Assistant; Admitting Provider Internal Medicine; Emergency Provider Emergency Medicine; PCP Family Medicine; Visit Provider Family Medicine
DX: L03.116 Cellulitis of left lower limb (principal); K80.00 Calculus of gallbladder with acute cholecystitis without obstruction; J96.11 Chronic respiratory failure with hypoxia; I13.0 Hypertensive heart and chronic kidney disease with heart failure and stage 1 through stage 4 chronic kidney disease, or unspecified chronic kidney disease; I48.19 Other persistent atrial fibrillation; I50.32 Chronic diastolic (congestive) heart failure; I27.20 Pulmonary hypertension, unspecified; E11.22 Type 2 diabetes mellitus with diabetic chronic kidney disease; B96.5 Pseudomonas (aeruginosa) (mallei) (pseudomallei) as the cause of diseases classified elsewhere; J44.9 Chronic obstructive pulmonary disease, unspecified; N18.32 Chronic kidney disease, stage 3b; E11.9 Type 2 diabetes mellitus without complications; Z79.4 Long term (current) use of insulin; K76.0 Fatty (change of) liver, not elsewhere classified; E78.2 Mixed hyperlipidemia; I25.10 Atherosclerotic heart disease of native coronary artery without angina pectoris; K82.8 Other specified diseases of gallbladder; I95.81 Postprocedural hypotension; Z95.2 Presence of prosthetic heart valve; L03.115 Cellulitis of right lower limb; R53.81 Other malaise; Z79.01 Long term (current) use of anticoagulants; Z87.891 Personal history of nicotine dependence; Z82.3 Family history of stroke; Z95.5 Presence of coronary angioplasty implant and graft; Z79.51 Long term (current) use of inhaled steroids; R53.1 Weakness; R79.1 Abnormal coagulation profile; Z99.81 Dependence on supplemental oxygen; Z95.1 Presence of aortocoronary bypass graft
CPT/HCPCS: 36415; 71045; 74018; 74176; 75989; 76705; 78227; 80048; 80053; 80202; 82962; 83690; 83735; 84100; 85014; 85018; 85025; 85027; 85610; 85652; 85730; 86140; 86850; 86900; 86901; 86920; 87040; 93005; 93970; 94640; 94668; 97110; 97116; 97162; 97165; 97530; 97535; 99156; 99157; 99252; 99284; A9537; J7030; J7040; J7050; P9016; A4216; G0463; J0612; J2405; J2805; P9017